=== PATIENT | female | born 1935 | race Caucasian/White ===

== ENCOUNTER 2017-01-26 07:04 | Inpatient (IN) | payer MEDICARE, OTHER ==
[2017-01-26] MEDS ORDERED: NS 0.9% 1000 ML* 1,000 ML IV SCH (07:45)
--- NOTE | 2017-01-26 08:39 | RAD ---
Indication: Altered mental status. LEFT facial droop and LEFT arm numbness. Altered speech. Comparison: May 08, 2015 Technique: Noncontrast CT vertex of skull through foramen magnum. Report: Unremarkable ventricles, and basal cisterns. There is decreased density in the RIGHT basal ganglia from level of the caudate superiorly through the putamen and external capsule inferiorly. Negative for associated mass effect. 2.3 x 2.1 cm region of fallon matter white matter obscuration at the RIGHT frontal lobe at the level of the zamora radiata with localized associated sulcal effacement without additional mass effect. Negative for intra or extra-axial hemorrhage. No suspicious lesion of the calvarium or skull base. Clear visualized paranasal sinuses and mastoid air spaces. IMPRESSION: 2 areas of subacute nonhemorrhagic infarct involving the RIGHT frontal lobe and basal ganglia through the external capsule corresponding with the RIGHT middle cerebral artery distribution. Only mild mass affect without evidence for midline shift or downward herniation.
--- NOTE | 2017-01-26 08:41 | RAD ---
Indication: Altered mental status. Comparison: April 03, 2015 Technique: Sitting AP 0813 hours Report: Suboptimal inspiration based on comparison with the previous chest radiograph. Diffuse mild prominence of the interstitial markings and patchy rarefaction of the mid to upper lung zone interstitial markings. No focal pulmonary lesion, compelling alveolar consolidation, pleural effusion, pneumothorax. The heart, pulmonary vasculature, and mediastinal contours are unremarkable. IMPRESSION: Stigmata of probable obstructive lung disease. No acute pulmonary or cardiac process evident.
--- NOTE | 2017-01-26 08:44 | RAD ---
INDICATION: Altered mental status. Regions of subacute appearing ischemic infarct in the RIGHT middle cerebral artery distribution on head CT. COMPARISON: No relevant prior exams available on the [facility] for comparison. TECHNIQUE: Multidetector CT images foramen magnum to lung apices without contrast. Multiplanar reformation. REPORT: 2 mm degenerative C3-C4 and C6-C7 anterolisthesis. Negative for facet subluxation at any level. Negative for cervical vertebral body or posterior element fracture. Negative for paravertebral hematoma. Moderately severe C3-C4 and C5-C6 degenerative spondylosis. Congenitally generous pedicles mitigate against acquired central canal stenosis. Uncinate process spurring results in mild C3-C4, mild RIGHT C4-C5, and moderate C4-C5 LEFT foraminal stenosis. IMPRESSION: No CT evidence for traumatic thoracic spine injury.
[2017-01-26 09:12] LABS: Hematocrit 36 % (35-47); Hemoglobin 11.9 g/dl (12.0-16.0); Mean Corpuscular HGB Conc 34 g/dl (31-36); Mean Corpuscular Hemoglobin 31 pg (27-31); Mean Corpuscular Volume 93 fL (80-97); Mean Platelet Volume 7 um3 (7.4-10.4); Red Blood Count 3.84 10^6/ul (4.0-5.4); Red Cell Distribution Width 13 % (10.5-15); White Blood Count 8.3 10^3/ul (3.5-10.8)
[2017-01-26] MEDS ORDERED: Aspirin TAB* 325 MG PO ONE (09:18)
[2017-01-26 09:23] LABS: Ammonia 30 mol/L (16-53)
[2017-01-26 09:24] LABS: ALT 11 U/L (7-52); AST 19 U/L (13-39); Albumin 4.3 g/dL (3.2-5.2); Alkaline Phosphatase 54 U/L (34-104); Anion Gap 7 mmol/L (2-11); BUN/Creatinine Ratio 22.2 (8-20); Blood Urea Nitrogen 38 mg/dL (6-24); C Reactive Protein 4.66 mg/L (< 5.00); CO2 Carbon Dioxide 21 mmol/L (22-32); Calcium 9.1 mg/dL (8.6-10.3); Chloride 107 mmol/L (101-111); Creatine Kinase 82 U/L (10-223); EGFR African American 36.8 (>60); EGFR Non-African American 28.7 (>60); Globulin 2.5 g/dL (2-4); Glucose 92 mg/dL (70-100); Lipase 27 U/L (11.0-82.0); Potassium 4.2 mmol/L (3.5-5.0); Sodium 135 mmol/L (133-145); Total Protein 6.8 g/dL (6.4-8.9)
[2017-01-26 09:26] LABS: Acetaminophen < 15 mcg/mL; Alcohol < 10 mg/dL (<10); Salicylate < 2.50 mg/dL (<30)
[2017-01-26 09:29] LABS: B Type Natriuretic Peptide 652 pg/mL
[2017-01-26 09:36] LABS: TSH (Thyroid Stimulating Horm) 4.48 mcIU/mL (0.34-5.60)
[2017-01-26 10:09] LABS: Urine Bilirubin Negative (Negative); Urine Glucose Negative (Negative); Urine Nitrite Negative (Negative)
[2017-01-26 10:11] LABS: Urine Bacteria Absent (Absent)
[2017-01-26] MEDS ORDERED: cefTRIAXone(*) 1 GM in NS 0.9% 50 ML* 50 ML IVPB ONE (10:49)
[2017-01-26] MEDS ORDERED: Aspirin SUPP* 300 MG PR ONE (10:49)
[2017-01-26] MEDS ORDERED: Aspirin SUPP* 300 MG ONE (10:52)
[2017-01-26] MEDS: NS 0.9% 1000 ML* 1,000 ML IV SCH ×2 (11:00→14:58)
[2017-01-26 13:45] LABS: Cholesterol 112 mg/dL; HDL Cholesterol 41.9 mg/dL; LDL Cholesterol 49 mg/dL; Triglycerides 105 mg/dL
[2017-01-26] MEDS: Heparin VIAL(*) 5000 UNITS/ML VIAL (FIVE THOUSAND) SUBCUT SCH ×2 (14:07→20:57)
--- NOTE | 2017-01-26 14:42 | ED ---
Lela Hernandez Edward, scribed for Mann Story MD on 01/26/17 at 0714 . Altered Mental Status - HPI Summary HPI Summary: 81 y/o female BIBA c/o sudden onset AMS characterized as confusion and unresponsiveness starting at around 0600 this morning. Last seen normal 2100 last night, per daughter. This morning at 0600, the pt's daughter woke up to let the dogs out. When she returned to the kitchen she found the pt "talking jibberish" and "not making sense." Associated sx: L side facial droop and L sided weakness. PMHx HTN, HLD and COPD. Pt had a recent respiratory infection around 2 weeks ago and was treated with 2 abx. Pt has only spoken a few words in the ED. Most information provided by the pt's daughter. - History Of Current Complaint Stated Complaint: AMS Hx Obtained From: Family/[employer] Timing: Lasting Hours Character: Confusion - and unresponsiveness Aggravating Factor(s): Nothing Alleviating Factor(s): Nothing Associated Signs And Symptoms: Positive: Weakness - L side - Allergies/Home Medications Allergies/Adverse Reactions: Allergies Allergy/AdvReac Type Severity Reaction Status Date / Time Codeine Allergy KNOCKS HER Verified 04/03/15 10:26 OUT Sulfa Antibiotics Allergy Unknown Verified 04/03/15 10:26 Reaction Details ENVIRONMENTAL/SEASONAL Allergy WATERY Uncoded 04/03/15 10:26 EYES, RUNNY NOSE PMH/Surg Hx/FS Hx/Imm Hx Previously Healthy: No Cardiovascular History: Reports: Hx Coronary Artery Disease - CHOLESTEROL CONTROL WITH MED, Hx Hypertension - CONTROL WITH MEDS Respiratory History: Reports: Hx Chronic Obstructive Pulmonary Disease (COPD), Hx Seasonal Allergies, Other Respiratory Problems/Disorders - seasonal allergies GI History: Reports: Hx Gall Bladder Disease - removed History: Denies: Hx Acute Renal Failure, Hx Benign Prostatic Hyperplasia, Hx Chronic Renal Failure, Hx Dialysis, Hx Kidney Infection, Hx Kidney Stones, Other Problems/Disorders Musculoskeletal History: Reports: Hx Tendonitis - SHOULDER Sensory History: Reports: Hx Cataracts - removed, Hx Contacts or Glasses Denies: Hx Hearing Aid Opthamlomology History: Reports: Hx Cataracts - removed, Hx Contacts or Glasses Psychiatric History: Reports: Hx Anxiety, Hx Depression Denies: Hx Eating Disorder, Hx Schizophrenia, Hx of Violent Episodes Against Others, Hx Substance Abuse - Cancer History Hx Chemotherapy: No Hx Radiation Therapy: No - Surgical History Surgery Procedure, Year, and Place: 1963 AND 1964 C SECTION, [facility]. 2009 BOWEL RESECTION, [facility]. 2013 LAPAROSCOPIC CHOLECYSTECTOMY, [facility] Hx Anesthesia Reactions: No Infectious Disease History: Reports: Hx Shingles Denies: Hx Clostridium Difficile, Hx Hepatitis, Hx Human Immunodeficiency Virus (HIV), Hx of Known/Suspected MRSA, Hx Tuberculosis, Hx Known/Suspected VRE , Hx Known/Suspected VRSA, History Other Infectious Disease, Traveled Outside the [place] in Last 30 Days - Family History Known Family History: Positive: Other - Anxiety disorder - sister - Social History Alcohol Use: Rare Hx Substance Use: No Substance Use Type: Reports: None Hx Tobacco Use: Yes Smoking Status (MU): Former Smoker Amount Used/How Often: 1 PPD Review of Systems Constitutional: Negative Eyes: Negative ENT: Negative Cardiovascular: Negative Respiratory: Negative Gastrointestinal: Negative Genitourinary: Negative Musculoskeletal: Negative Skin: Negative Neurological: Other - L side facial droop Positive: Weakness - L side, Slurred Speech - "Jibberish" Psychological: Normal All Other Systems Reviewed And Are Negative: Yes Physical Exam Triage Information Reviewed: Yes Vital Signs On Initial Exam: Initial Vitals BP 142/66 01/26/17 07:16 Vital Signs Reviewed: Yes Appearance: Positive: Well-Appearing, No Pain Distress Skin: Positive: Warm, Skin Color Reflects Adequate Perfusion, Dry Head/Face: Positive: Normal Head/Face Inspection Eyes: Positive: EOMI, PADMINI ENT: Positive: Normal ENT inspection Neck: Positive: Supple, Nontender Respiratory/Lung Sounds: Positive: Clear to Auscultation, Breath Sounds Present Cardiovascular: Positive: RRR Abdomen Description: Positive: Nontender, Soft Bowel Sounds: Positive: Present Musculoskeletal: Positive: Normal, Strength/ROM Intact Neurological: Positive: Normal, Sensory/Motor Intact, Alert, Oriented to Person Place, Time Psychiatric: Positive: Affect/Mood Appropriate - Shreya Coma Scale Best Eye Response: 4 - Spontaneous Best Motor Response: 5 - Purposeful Movement Best Verbal Response: 4 - Confused Diagnostics - Vital Signs Vital Signs Temp Pulse Resp BP Pulse Ox 01/26/17 09:08 74 21 124/51 96 01/26/17 09:00 73 17 96 01/26/17 08:30 74 21 98 01/26/17 08:00 74 22 136/58 98 09/10/17 07:47 97.9 F 73 22 142/66 100 01/26/17 07:30 75 19 137/59 97 01/26/17 07:17 75 97 01/26/17 07:16 142/66 - Laboratory Lab Results: Lab Results 01/26/17 01/26/17 01/26/17 Range/Units 08:42 08:42 08:42 WBC 8.3 (3.5-10.8) 10^3/ul RBC 3.84 L (4.0-5.4) 10^6/ul Hgb 11.9 L (12.0-16.0) g/dl Hct 36 (35-47) % MCV 93 (80-97) fL MCH 31 (27-31) pg MCHC 34 (31-36) g/dl RDW 13 (10.5-15) % Plt Count 380 (150-450) 10^3/ul MPV 7 L (7.4-10.4) um3 Neut % (Auto) 79.1 (38-83) % Lymph % (Auto) 13.9 L (25-47) % Marshall % (Auto) 5.7 (1-9) % Eos % (Auto) 0.4 (0-6) % Baso % (Auto) 0.9 (0-2) % Absolute Neuts (auto) 6.6 (1.5-7.7) 10^3/ul Absolute Lymphs (auto) 1.2 (1.0-4.8) 10^3/ul Absolute Monos (auto) 0.5 (0-0.8) 10^3/ul Absolute Eos (auto) 0 (0-0.6) 10^3/ul Absolute Basos (auto) 0.1 (0-0.2) 10^3/ul Absolute Nucleated RBC 0 10^3/ul Nucleated RBC % 0 INR (Anticoag Therapy) 0.86 L (0.89-1.11) APTT 29.1 (26.0-36.3) seconds Sodium 135 (133-145) mmol/L Potassium 4.2 (3.5-5.0) mmol/L Chloride 107 (101-111) mmol/L Carbon Dioxide 21 L (22-32) mmol/L Anion Gap 7 (2-11) mmol/L BUN 38 H (6-24) mg/dL Creatinine 1.71 H (0.51-0.95) mg/dL Est GFR ( Amer) 36.8 (>60) Est GFR (Non-Af Amer) 28.7 (>60) BUN/Creatinine Ratio 22.2 H (8-20) Glucose 92 (70-100) mg/dL Lactic Acid (0.5-2.0) mmol/L Calcium 9.1 (8.6-10.3) mg/dL Magnesium 2.0 (1.9-2.7) mg/dL Total Bilirubin 0.30 (0.2-1.0) mg/dL AST 19 (13-39) U/L ALT 11 (7-52) U/L Alkaline Phosphatase 54 (34-104) U/L Ammonia (16-53) mol/L Total Creatine Kinase 82 (10-223) U/L CK-MB (CK-2) 3.2 (0.6-6.3) ng/mL Troponin I 0.00 (<0.04) ng/mL C-Reactive Protein 4.66 (< 5.00) mg/L B-Natriuretic Peptide ( - 100) pg/mL Total Protein 6.8 (6.4-8.9) g/dL Albumin 4.3 (3.2-5.2) g/dL Globulin 2.5 (2-4) g/dL Albumin/Globulin Ratio 1.7 (1-3) Triglycerides 105 mg/dL Cholesterol 112 mg/dL LDL Cholesterol 49 mg/dL HDL Cholesterol 41.9 mg/dL Lipase 27 (11.0-82.0) U/L TSH 4.48 (0.34-5.60) mcIU/mL Salicylates < 2.50 (<30) mg/dL Acetaminophen < 15 mcg/mL Serum Alcohol < 10 (<10) mg/dL 01/26/17 01/26/17 Range/Units 08:42 08:42 WBC (3.5-10.8) 10^3/ul RBC (4.0-5.4) 10^6/ul Hgb (12.0-16.0) g/dl Hct (35-47) % MCV (80-97) fL MCH (27-31) pg MCHC (31-36) g/dl RDW (10.5-15) % Plt Count (150-450) 10^3/ul MPV (7.4-10.4) um3 Neut % (Auto) (38-83) % Lymph % (Auto) (25-47) % Marshall % (Auto) (1-9) % Eos % (Auto) (0-6) % Baso % (Auto) (0-2) % Absolute Neuts (auto) (1.5-7.7) 10^3/ul Absolute Lymphs (auto) (1.0-4.8) 10^3/ul Absolute Monos (auto) (0-0.8) 10^3/ul Absolute Eos (auto) (0-0.6) 10^3/ul Absolute Basos (auto) (0-0.2) 10^3/ul Absolute Nucleated RBC 10^3/ul Nucleated RBC % INR (Anticoag Therapy) (0.89-1.11) APTT (26.0-36.3) seconds Sodium (133-145) mmol/L Potassium (3.5-5.0) mmol/L Chloride (101-111) mmol/L Carbon Dioxide (22-32) mmol/L Anion Gap (2-11) mmol/L BUN (6-24) mg/dL Creatinine (0.51-0.95) mg/dL Est GFR ( Amer) (>60) Est GFR (Non-Af Amer) (>60) BUN/Creatinine Ratio (8-20) Glucose (70-100) mg/dL Lactic Acid 1.3 (0.5-2.0) mmol/L Calcium (8.6-10.3) mg/dL Magnesium (1.9-2.7) mg/dL Total Bilirubin (0.2-1.0) mg/dL AST (13-39) U/L ALT (7-52) U/L Alkaline Phosphatase (34-104) U/L Ammonia 30 (16-53) mol/L Total Creatine Kinase (10-223) U/L CK-MB (CK-2) (0.6-6.3) ng/mL Troponin I (<0.04) ng/mL C-Reactive Protein (< 5.00) mg/L B-Natriuretic Peptide 652 H ( - 100) pg/mL Total Protein (6.4-8.9) g/dL Albumin (3.2-5.2) g/dL Globulin (2-4) g/dL Albumin/Globulin Ratio (1-3) Triglycerides mg/dL Cholesterol mg/dL LDL Cholesterol mg/dL HDL Cholesterol mg/dL Lipase (11.0-82.0) U/L TSH (0.34-5.60) mcIU/mL Salicylates (<30) mg/dL Acetaminophen mcg/mL Serum Alcohol (<10) mg/dL Result Diagrams: 01/26/17 08:42 01/26/17 08:42 Lab Statement: Any lab studies that have been ordered have been reviewed, and results considered in the medical decision making process. - Radiology CXR Xray Interpretation: No Acute Changes - Stigmata of probable obstructive lung disease. No acute pulmonary or cardiac process evident. ED PHYSICIAN AGREEABLE Radiology Interpretation Completed By: Radiologist - CT BRAIN CT CT Interpretation: Positive (See Comments) - 2 areas of subacute nonhemorrhagic infarct involving the RIGHT frontal lobe and basal ganglia through the external capsule corresponding with the RIGHT middle cerebral artery distribution. Only mild mass affect without evidence for midline shift or downward herniation. ED PHYSICIAN AGREEABLE CT Interpretation Completed By: Radiologist C-SPINE CT CT Interpretation: No Acute Changes - No CT evidence for traumatic thoracic spine injury. 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/Release Non-Paretic Hand: Both Correctly Best Gaze (Only Horizontal Eye Movement): Normal Visual Field Testing: No Visual Loss Facial Paresis-Pt to Smile & Close Eyes or Grimace Symmetry: Normal/Symmetrical Motor Function - Right Arm: Drifts LT 10 seconds Motor Function - Left Arm: Drifts LT 10 seconds Motor Function - Right Leg: No Effort Against [place] Motor Function - Left Leg: No Effort Against [place] Limb Ataxia-Must be out of Proportion to Weakness Present: Absent Sensory (Use Pinprick to Test Arms/Legs/Trunk/Face): Normal Best Language (Describe Picture, Name Items): Severe Aphasia Dysarthria (Read Several Words): Unintelligible or Mute Extinction and Inattention: Profound Julio César-Inattention Total Score: 17 Altered Mental Statu Course/Dx - Course Course Of Treatment: DISCUSSED WITH NEUROLOGY. ADMIT HOSPITALIST. ASA GIVEN CO. IV ROCEHPHIN GIVEN. CRITICAL CARE TIME LESS THAN 30 MINUTES. - Diagnoses Discharge Diagnoses: CVA (cerebral vascular accident), UTI (urinary tract infection) - Provider Notifications Discussed Care Of Patient With: Emilia Emerson Time Discussed With Above Provider: 09:00 Instructed by Provider To: Admit As Inpatient Discharge - Discharge Plan Condition: Stable Disposition: ADMITTED TO [facility] The documentation as recorded by the Lela bhardwaj Edward accurately reflects the service I personally performed and the decisions made by me, Mann Story MD.
--- NOTE | 2017-01-26 15:20 | CONS ---
NEUROLOGY CONSULTATION: DATE OF CONSULT: 01/26/17 REQUESTING PHYSICIAN: Dr. Mann Story. REASON FOR CONSULT: Possible stroke. HISTORY OF PRESENT ILLNESS: Jess Osorio is an 81-year-old right-handed woman with a history of hypertension, anxiety, and COPD, who presented to the emergency department with her daughter this morning. The history is obtained from discussion with Dr. Story as well as discussion with the patient's daughter as the patient is unable to contribute to the history given her symptoms. It should be noted, that the daughter does not know the patient's home medications nor extensive past medical history. The patient was in her usual state of health last evening. The patient and her daughter had dinner together and then went back to the daughter's house where the patient spent the night. Mrs. Osorio typically lives alone and is independent in all of her ADLs including driving. They went to bed around 9 p.m. This morning, the patient was found by her daughter in the kitchen around 6 a.m. standing with gibberish speech. Her daughter states she appeared to be somewhat weak to her, but it is unclear exactly how and the daughter helped her into the living room, but the patient was able to ambulate. She again did have gibberish speech. The patient's daughter called a family member and then called 911 and the patient was brought here for further evaluation. They deny any past history of stroke in the patient. She recently was complaining of feeling some cold-like symptoms within the last few weeks and saw her PCP, Dr. Box. She was apparently prescribed Z-Reggie, but then developed diarrhea and went back for another evaluation and was prescribed ciprofloxacin. It sounds like she most recently saw Dr. Bxo Friday of last week and as far as they know everything was fine. It is unknown if she takes an aspirin on a daily basis or not. The patient is not a candidate for TPA given that her last known normal was 9 p.m. last night. I am asked to evaluate the patient for question of stroke. PAST MEDICAL HISTORY: 1. Hypertension. 2. Anxiety. 3. COPD. 4. Hyperlipidemia. HOME MEDICATIONS: The list has not been verified, but her last list noted in [employer]This is as follows: 1. Trazodone 100 mg at bedtime. 2. Clonazepam. 3. Spiriva. 4. Zoloft. 5. Ranitidine. 6. Lovastatin. 7. Losartan. 8. Loratadine. 9. Gabapentin. 10. Colace. 11. Diltiazem. 12. Vitamin D. 13. Vitamin C. 14. Ventolin as needed. ALLERGIES: 1. CODEINE. 2. SULFA ANTIBIOTICS. 3. ENVIRONMENTAL ALLERGIES. FAMILY HISTORY: There is a history of stroke in the patient's father as well as TIA in the patient's sister. They deny any family history of diabetes or hypertension. SOCIAL HISTORY: The patient is a former smoker, quit approximately 10 years ago. She drinks alcohol rarely. No other illicit drug use. As mentioned in the HPI, she lives alone and drives at her baseline. REVIEW OF SYSTEMS: As per the HPI, otherwise negative. PHYSICAL EXAM: Vital Signs: Temperature 98.7, blood pressure 129/80, heart rate 64, oxygen saturation is 95% on 2 L nasal cannula. Her maximum blood pressure since she has been here was 142/66 on arrival at 7:16 this morning. General Examination: She is well appearing woman in no acute distress. Heart: Regular rate and rhythm with no murmurs, rubs, or gallops. Lungs: She was not able to fully cooperate with auscultation of the lungs secondary to not being able to follow commands, but there was no obvious abnormal lung sounds heard. No obvious carotid bruits. Extremities showed no significant pitting edema. No rashes. On neurological examination, she is unable to reliably follow commands. She did close her eyes on one occasion on a verbal command, but was not able to make a fist. Much of the physical exam was accomplished through mimicking. She had fluent gibberish speech with occasional intelligible words. She was not able to describe the [employer] theft picture nor name objects or point to objects on the stroke cards. When asked to read off the stroke card, she said 1 or 2 words that made sense and were present on the card, but otherwise her speech was gibberish. She was not able to repeat a sentence. On cranial nerve examination, pupils are equal, round and reactive from 4 to 2 mm bilaterally. Versions are full without any nystagmus. She did not blink to threat in either visual field reliably. Her face is notable for slight left lower facial weakness. Her tongue is midline and she cannot cooperate with elevating the palate. On motor examination, she has slightly increased tone in the left upper extremity. There is possibly some slight weakness with some drift of the left leg prior to 5 seconds, but otherwise no significant extremity weakness. She seems to have some mild diminished sensation to noxious stimulation in the left upper and lower extremities. Coordination testing was not able to be accomplished. Reflexes were 2+ in the right upper extremity, 3+ left upper extremity, 2+ at the knees and an upgoing toe on the left. DIAGNOSTIC STUDIES/LAB DATA: CBC was notable only for slightly low hemoglobin of 11.9 and RBCs 3.84. CMP was notable for an elevated BUN of 38 and creatinine of 1.71. The last known creatinine we have on file is from 2014 and was 1.07. Her CO2 was low at 21. BNP was elevated at 652. Liver functions were normal. Troponin was negative. CRP was normal and TSH was 4.48. Urinalysis was notable for squamous epithelial cells present as well as transitional epithelial cells present as well as 2+ leukocyte esterase and 2+ wbc's, but no nitrites. Coagulation studies are unremarkable. Noncontrast brain CT was obtained and personally reviewed and showed 2 areas of subacute nonhemorrhagic infarction involving the right frontal lobe and basal ganglia to the external capsule. There was no obvious subacute infarctions noted in the left hemisphere. Chest x-ray was notable for the stigmata of COPD. She also underwent a C-spine CT, which showed no evidence for traumatic injury, but moderately severe degenerative spondylosis was noted at C3-4 and C5-6. IMPRESSION: Jess Osorio is an 81-year-old right-handed woman with a history of hypertension and probable hyperlipidemia based on home medication list who presented today with some left facial weakness as well as aphasia. Her CT scan shows some probable areas of subacute infarction in the right hemisphere. I am concerned that she has had embolic infarcts bilaterally, which would give rise to her aphasia as well as her apparent left facial weakness and possibly some left lower extremity weakness as well. She has been admitted to the hospital and is undergoing stroke workup to include MRI of the brain as well as MRA of the head. This will happen tomorrow. Given her current renal function, we are not able to obtain a CT angiogram, but carotid ultrasound has been ordered. She will be monitored on telemetry to look for any signs of atrial fibrillation and will undergo echocardiogram with bubble study tomorrow. In addition, she should have laboratory workup including hemoglobin A1c and lipid panel tomorrow. She was given aspirin in the emergency department and I started her on aspirin by mouth to be started tomorrow. She has undergone her swallow evaluation by Speech Therapy today who said she was able to have mechanical soft diet at this point. Thank you for this consultation. I will follow the patient along with you. [id number]/[facility] #: [id number] NAZANIN
[2017-01-26 15:44] LABS: Benzodiazepine Urine Screen None Detected (None Detect)
--- NOTE | 2017-01-26 20:19 | HP ---
CC: Dr. Box * HISTORY AND PHYSICAL: DATE OF ADMISSION: 01/26/17 PRIMARY CARE PROVIDER: Dr. Box. CHIEF COMPLAINT: Garbled speech. HISTORY OF PRESENT ILLNESS: Ms. Osorio is an 81-year-old female, who a day prior to admission had been in her normal state of health. The patient's daughter provides all the history, as the patient is aphasic. Per the daughter , the patient and she went to a dinner event. Everything was normal at that point. The patient was going to stay with her daughter overnight. At approximately 6 a.m. on the morning of admission, the patient's daughter got up to let her dog out. She then went and put something in the garage and when she came back in to the house, she found her mother standing in the kitchen. At that point, she was talking gibberish. The patient's daughter did not recognize any other stroke-like symptoms; however, she was concerned for stroke ; therefore, contacted her brother and the EMS. PAST MEDICAL HISTORY: 1. COPD. 2. Hypertension (the patient's daughter is unaware of all the patient's medical conditions). PAST SURGICAL HISTORY: Unknown. MEDICATIONS: According to pharmacy records, but I do not believe this is a complete and accurate list. 1. Remeron 15 mg p.o. q.h.s. 2. Losartan 50 mg p.o. daily. 3. Spiriva 1 puff inhaled daily. 4. Klonopin 0.5 mg p.o. t.i.d. p.r.n. anxiety. 5. Atenolol 12.5 mg p.o. daily. 6. Lovastatin 10 mg p.o. q.h.s. 7. Cipro 500 mg p.o. b.i.d. started on 01/21/17 for 7-day course. 8. Diltiazem XR 180 mg p.o. b.i.d. ALLERGIES: No known drug allergies. FAMILY HISTORY: Again, the patient's daughter is not completely clear, but she states that the patient's mom at the age of 95 and the patient's father had a CVA. SOCIAL HISTORY: The patient is a former smoker. She quit 8 to 10 years ago. She drinks on occasion. The patient's daughter is unaware who her healthcare proxy is or what the patient's code status is. REVIEW OF SYSTEMS: Unobtainable from the patient due to aphasia. PHYSICAL EXAMINATION GENERAL: The patient is a well-developed, elderly female, sitting up in the stretcher, awake, and in no acute distress. VITAL SIGNS: Blood pressure 129/80, pulse 64, respirations 16, temp 98.7, O2 sat 96% on 2 L. HEENT: Pupils are equal, they are round. Extraocular muscles are intact. Oropharynx is clear. Oral mucosa is moist. The patient is edentulous. There is no submandibular, cervical, or supraclavicular adenopathy. Thyroid is not enlarged. No thyroid nodules are noted. PULMONARY: Lungs are clear to auscultation bilaterally. CARDIAC: Normal S1 and S2. Regular rate and rhythm. I do not appreciate any murmurs. There is no lower extremity edema. ABDOMEN: Bowel sounds are present. Abdomen is soft, nontender, nondistended. MUSCULOSKELETAL: There is no cyanosis or clubbing of the digits. There is full active range of motion of all 4 extremities. NEURO: The patient has a left-sided facial droop, most notably at the left corner of the mouth. The patient is aphasic, occasionally speaking gibberish. She is able to follow commands but does this slightly with difficulty. Strength appears to be symmetric bilaterally. The patient does not have any evidence of pronator drift and she is able to lift both legs up off the bed. PSYCH: The patient is awake. It is unclear if she is oriented to place or situation. SKIN: Warm and dry. There are no rashes. DIAGNOSTIC STUDIES/LAB DATA: WBC 8.3, hemoglobin 11.9, hematocrit 36, and platelets 380. INR 0.86. Sodium 135, potassium 4.2, chloride 107, CO2 21, BUN 38, creatinine 1.71, glucose 92, lactic acid 1.3, calcium 9.1, magnesium 2.0. Bilirubin 0.3, AST 19, ALT 11, alk phos 54. Ammonia 30. CPK 82, CK-MB 3.2. Troponin 0. CRP 4.66. BNP 652. Albumin 4.3, lipase 27. TSH 4.48. Urinalysis reveals clear urine with specific gravity of 1.015, 2+ leukocyte esterase, 2+ wbc's, absent bacteria, salicylate less than 2.5, acetaminophen less than 15, alcohol less than 10. EKG reveals normal sinus rhythm without any acute ST-T wave abnormalities. CT brain revealed 2 areas of subacute nonhemorrhagic infarct involving the right frontal lobe and basal ganglia through the external capsule corresponding with right mid cerebral artery distribution. Only mild mass effect without evidence for midline shift or downward herniation is noted. Cervical spine CT: No CT evidence for traumatic thoracic spine injury. Chest x-ray: Stigmata of probable obstructive lung disease. No acute pulmonary or cardiac process is evident. ASSESSMENT AND PLAN: Ms. Osorio is an 81-year-old female, who is in her usual state of health through the night prior to admission and found on the morning of admission by her daughter aphasic. 1. 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 The patient was found to have 2 lesions in the right middle cerebral artery territory. The patient received aspirin in the emergency room. She will need to undergo echocardiogram and carotid Dopplers. Additionally, an MRI of the brain will be obtained. Neurology consultation has been requested to Dr. Emerson. PT/OT and Speech Therapy will be ordered. As the patient was living at home alone, I suspect that she will not be able to return home alone at this point and she will likely need subacute rehab. A lipid profile will be added to the labs drawn in the emergency room. 2. Chronic obstructive pulmonary disease. The patient will be maintained on her usual dose of Spiriva. There are no signs of exacerbation at this point. 3. Hypertension. The patient will be allowed to have higher than normal blood pressure in the setting of her subacute cerebrovascular accident. I have ordered her atenolol and diltiazem, however, have placed hold parameters on these. Additionally, currently, the patient is unable to swallow safely and therefore these will be held until her swallow function improves. 4. Anxiety. The patient will have p.r.n. Klonopin though again if she is unable to swallow, we will need to consider changing this to an IV Ativan. 5. DVT prophylaxis. According to the Adult Thrombosis Prophylaxis Risk Factor Assessment Guide, the patient has a total risk factor score of 8 making her the highest risk. She will be placed on heparin 5000 units subcutaneous q.8 hours and for the time being, the patient's code status will be full as she and the patient's daughter are unable to provide her wishes. TIME SPENT: Sixty-five minutes was spent admitting this patient. [id number]/[facility] #: [id number] NAZANIN
[2017-01-26] MEDS: CMC:Lovastatin (NF) 10 MG TAB PO SCH (20:56)
[2017-01-26] MEDS ORDERED: DILTIAZEM HCL 180 MG PO SCH (21:00)
[2017-01-27 05:07] LABS: BUN/Creatinine Ratio 18.5 (8-20); Calcium 8.4 mg/dL (8.6-10.3); EGFR African American 53.4 (>60); EGFR Non-African American 41.5 (>60); Potassium 3.7 mmol/L (3.5-5.0)
[2017-01-27] MEDS: Heparin VIAL(*) 5000 UNITS/ML VIAL (FIVE THOUSAND) SUBCUT SCH ×3 (05:49→23:47)
[2017-01-27] MEDS: NS 0.9% 1000 ML* 1,000 ML IV SCH (06:05)
[2017-01-27] MEDS ORDERED: Morphine INJ* 2 MG/ML 1 ML CARPUJECT IV PRN (08:06)
[2017-01-27] MEDS: Pantoprazole IV* 40 MG IV SCH (08:13)
--- NOTE | 2017-01-27 08:40 | PN ---
Subjective Date of Service: 01/27/17 Interval History: Pt is able to speak "much better today", still has occasional anomia and not able to follow all of the commands correctly. C/o abd pain and periumbilical burning that had been going on all night Objective Active Medications: Aspirin (Ecotrin Ec Tab*) 325 mg PO DAILY [facility] Aspirin (Aspirin Supp*) 300 mg ID DAILY [facility] Last Admin: 01/27/17 08:13 Dose: 300 mg Clonazepam (Klonopin Tab(*)) 0.5 mg PO TID PRN PRN Reason: ANXIETY Device (Tiotropium Inhaler Device*) 1 each INH 0900 ONE Stop: 01/27/17 09:01 Heparin Sodium (Porcine) (Heparin Vial(*)) 5,000 units SUBCUT Q8HR [facility] Last Admin: 01/27/17 05:49 Dose: 5,000 units Lactated Ringer's (Lactated Ringers 1000 Ml Bag*) 1,000 mls @ 75 mls/hr IV PER RATE [facility] Losartan Potassium (Cozaar Tab*) 50 mg PO QAM [facility] Lovastatin (Mevacor (Nf)) 10 mg PO BEDTIME [facility] Last Admin: 01/26/17 20:56 Dose: Not Given Morphine Sulfate (Morphine Inj (Syringe)*) 1 mg IV Q4H PRN PRN Reason: PAIN Last Admin: 01/27/17 08:28 Dose: 1 mg Pantoprazole Sodium (Protonix Iv*) 40 mg IV DAILY [facility] Last Admin: 01/27/17 08:13 Dose: 40 mg Tiotropium Deloit (Spiriva Cap.Inh*) 1 cap INH QAM [facility] Vital Signs 01/26/17 01/26/17 01/26/17 09:30 09:40 10:00 Temperature 97.6 F Pulse Rate 78 75 72 Respiratory 17 26 18 Rate Blood Pressure 134/55 116/36 125/52 (mmHg) O2 Sat by Pulse 96 97 97 Oximetry 01/26/17 01/26/17 01/26/17 10:30 11:08 15:25 Temperature 98.7 F 97.9 F Pulse Rate 76 64 80 Respiratory 18 16 20 Rate Blood Pressure 121/53 129/80 130/49 (mmHg) O2 Sat by Pulse 96 96 Oximetry 01/26/17 01/26/17 01/26/17 19:47 20:00 23:17 Temperature 98.4 F 97.1 F Pulse Rate 79 95 Respiratory 16 16 20 Rate Blood Pressure 127/51 144/62 (mmHg) O2 Sat by Pulse 98 96 Oximetry 01/27/17 01/27/17 01/27/17 03:14 07:18 08:22 Temperature 98.2 F 98.7 F Pulse Rate 87 86 Respiratory 20 24 16 Rate Blood Pressure 119/58 114/50 (mmHg) O2 Sat by Pulse 97 98 Oximetry 01/27/17 08:28 Temperature Pulse Rate Respiratory 16 Rate Blood Pressure (mmHg) O2 Sat by Pulse Oximetry Oxygen Devices in Use Now: Nasal Cannula - at 2 L Appearance: 81 yo F in nAD, AAOx2, not able to give the date, follows some of the commands Eyes: No Scleral Icterus, PERRLA Ears/Nose/Mouth/Throat: NL Teeth, Lips, Gums, Mucous Membranes Moist Neck: NL Appearance and Movements; NL JVP, Trachea Midline Respiratory: Symmetrical Chest Expansion and Respiratory Effort, Clear to Auscultation Cardiovascular: NL Sounds; No Murmurs; No JVD, RRR Abdominal: No Hepatosplenomegaly, - - diffuse abd tenderness with voluntary guarding, no rebound, BS+ Lymphatic: No Cervical Adenopathy Extremities: No Edema, No Clubbing, Cyanosis Skin: No Rash or Ulcers, No Nodules or Sclerosis Neurological: - - L UE at 4+/5, left facial droop, mixed aphasia Result Diagrams: 01/26/17 08:42 01/27/17 04:36 Additional Lab and Data: Lab Results 01/26/17 01/26/17 01/26/17 Range/Units 08:42 08:42 08:42 WBC 8.3 (3.5-10.8) 10^3/ul RBC 3.84 L (4.0-5.4) 10^6/ul Hgb 11.9 L (12.0-16.0) g/dl Hct 36 (35-47) % MCV 93 (80-97) fL MCH 31 (27-31) pg MCHC 34 (31-36) g/dl RDW 13 (10.5-15) % Plt Count 380 (150-450) 10^3/ul MPV 7 L (7.4-10.4) um3 Neut % (Auto) 79.1 (38-83) % Lymph % (Auto) 13.9 L (25-47) % Gilchrist % (Auto) 5.7 (1-9) % Eos % (Auto) 0.4 (0-6) % Baso % (Auto) 0.9 (0-2) % Absolute Neuts (auto) 6.6 (1.5-7.7) 10^3/ul Absolute Lymphs (auto) 1.2 (1.0-4.8) 10^3/ul Absolute Monos (auto) 0.5 (0-0.8) 10^3/ul Absolute Eos (auto) 0 (0-0.6) 10^3/ul Absolute Basos (auto) 0.1 (0-0.2) 10^3/ul Absolute Nucleated RBC 0 10^3/ul Nucleated RBC % 0 INR (Anticoag Therapy) 0.86 L (0.89-1.11) APTT 29.1 (26.0-36.3) seconds Sodium 135 (133-145) mmol/L Potassium 4.2 (3.5-5.0) mmol/L Chloride 107 (101-111) mmol/L Carbon Dioxide 21 L (22-32) mmol/L Anion Gap 7 (2-11) mmol/L BUN 38 H (6-24) mg/dL Creatinine 1.71 H (0.51-0.95) mg/dL Est GFR ( Amer) 36.8 (>60) Est GFR (Non-Af Amer) 28.7 (>60) BUN/Creatinine Ratio 22.2 H (8-20) Glucose 92 (70-100) mg/dL Lactic Acid (0.5-2.0) mmol/L Calcium 9.1 (8.6-10.3) mg/dL Magnesium 2.0 (1.9-2.7) mg/dL Total Bilirubin 0.30 (0.2-1.0) mg/dL AST 19 (13-39) U/L ALT 11 (7-52) U/L Alkaline Phosphatase 54 (34-104) U/L Ammonia (16-53) mol/L Total Creatine Kinase 82 (10-223) U/L CK-MB (CK-2) 3.2 (0.6-6.3) ng/mL Troponin I 0.00 (<0.04) ng/mL C-Reactive Protein 4.66 (< 5.00) mg/L B-Natriuretic Peptide ( - 100) pg/mL Total Protein 6.8 (6.4-8.9) g/dL Albumin 4.3 (3.2-5.2) g/dL Globulin 2.5 (2-4) g/dL Albumin/Globulin Ratio 1.7 (1-3) Triglycerides 105 mg/dL Cholesterol 112 mg/dL LDL Cholesterol 49 mg/dL HDL Cholesterol 41.9 mg/dL Lipase 27 (11.0-82.0) U/L TSH 4.48 (0.34-5.60) mcIU/mL Salicylates < 2.50 (<30) mg/dL Acetaminophen < 15 mcg/mL Serum Alcohol < 10 (<10) mg/dL 01/26/17 01/26/17 Range/Units 08:42 08:42 WBC (3.5-10.8) 10^3/ul RBC (4.0-5.4) 10^6/ul Hgb (12.0-16.0) g/dl Hct (35-47) % MCV (80-97) fL MCH (27-31) pg MCHC (31-36) g/dl RDW (10.5-15) % Plt Count (150-450) 10^3/ul MPV (7.4-10.4) um3 Neut % (Auto) (38-83) % Lymph % (Auto) (25-47) % Gilchrist % (Auto) (1-9) % Eos % (Auto) (0-6) % Baso % (Auto) (0-2) % Absolute Neuts (auto) (1.5-7.7) 10^3/ul Absolute Lymphs (auto) (1.0-4.8) 10^3/ul Absolute Monos (auto) (0-0.8) 10^3/ul Absolute Eos (auto) (0-0.6) 10^3/ul Absolute Basos (auto) (0-0.2) 10^3/ul Absolute Nucleated RBC 10^3/ul Nucleated RBC % INR (Anticoag Therapy) (0.89-1.11) APTT (26.0-36.3) seconds Sodium (133-145) mmol/L Potassium (3.5-5.0) mmol/L Chloride (101-111) mmol/L Carbon Dioxide (22-32) mmol/L Anion Gap (2-11) mmol/L BUN (6-24) mg/dL Creatinine (0.51-0.95) mg/dL Est GFR ( Amer) (>60) Est GFR (Non-Af Amer) (>60) BUN/Creatinine Ratio (8-20) Glucose (70-100) mg/dL Lactic Acid 1.3 (0.5-2.0) mmol/L Calcium (8.6-10.3) mg/dL Magnesium (1.9-2.7) mg/dL Total Bilirubin (0.2-1.0) mg/dL AST (13-39) U/L ALT (7-52) U/L Alkaline Phosphatase (34-104) U/L Ammonia 30 (16-53) mol/L Total Creatine Kinase (10-223) U/L CK-MB (CK-2) (0.6-6.3) ng/mL Troponin I (<0.04) ng/mL C-Reactive Protein (< 5.00) mg/L B-Natriuretic Peptide 652 H ( - 100) pg/mL Total Protein (6.4-8.9) g/dL Albumin (3.2-5.2) g/dL Globulin (2-4) g/dL Albumin/Globulin Ratio (1-3) Triglycerides mg/dL Cholesterol mg/dL LDL Cholesterol mg/dL HDL Cholesterol mg/dL Lipase (11.0-82.0) U/L TSH (0.34-5.60) mcIU/mL Salicylates (<30) mg/dL Acetaminophen mcg/mL Serum Alcohol (<10) mg/dL Assess/Plan/Problems-Billing Assessment: 81 yo f with h/o HTN, dyslipidemia who presented with aphasia and left sided weakness. - Patient Problems (1) CVA (cerebral vascular accident) Comment: acute , ischemic cont ASA Carotid dopplers, MRI brain and Echo with bubble pending Appreciate neurology's assistance Swallow eval pending (2) Abdominal pain Comment: diffuse will check CT abd cont IV Protonix for now (3) DELMER (acute kidney injury) Comment: appears prerenal, resolving cont gentle IVF (4) Abnormal urinalysis Comment: cont Ceftriaxone for now for possible UTI (5) Dyslipidemia Comment: LDL 51, cont current statin (6) HTN (hypertension) Comment: all BP meds stopped, controlled (7) COPD (chronic obstructive pulmonary disease) Comment: not in exacerbation, cont spiriva (8) DVT prophylaxis Comment: heparin sc Status and Disposition: inpatient
[2017-01-27] MEDS ORDERED: Spiriva Inhaler DEVICE* 1 EACH DEVICE INH ONE (09:00)
[2017-01-27] MEDS ORDERED: Aspirin SUPP* 300 MG PR SCH (09:00)
[2017-01-27] MEDS ORDERED: Aspirin EC TAB* 325 MG PO SCH (09:00)
[2017-01-27] MEDS ORDERED: Losartan TAB* 25 MG PO SCH (09:00)
[2017-01-27] MEDS ORDERED: Morphine INJ* 4 MG/ML 1 ML CARPUJECT IV PRN (10:11)
--- NOTE | 2017-01-27 10:40 | RAD ---
INDICATION: CVA. Assess for carotid stenosis. COMPARISON: No relevant prior exams available on the [facility] PACS for comparison. TECHNIQUE: Bilateral carotid duplex scan. Stenosis estimations reflect velocity criteria that have been correlated to angiographic stenosis calculations based on distal internal carotid diameter. REPORT: RIGHT ICA: 205 cm/s peak systolic 31 cm/s end diastolic CCA: 68 cm/s peak systolic ICA/CCA peak systolic ratio: 3.01 Moderate predominant calcific plaque at the carotid bulb and proximal internal carotid artery. Preserved low resistance internal carotid artery waveforms. Antegrade flow documented at the RIGHT vertebral artery. LEFT ICA: 76 cm/s peak systolic 21 cm/s end diastolic CCA: 74 cm/s peak systolic ICA/CCA peak systolic ratio: 1.03 Minimal calcific plaque at the LEFT carotid bulb. Preserved low resistance internal carotid artery waveforms. Antegrade flow documented at the LEFT vertebral artery. IMPRESSION: 1. 50-69% RIGHT internal carotid artery stenosis. 2. Less than 50% LEFT internal carotid artery stenosis. CPT II Codes: 3100F
[2017-01-27] MEDS: Tiotropium CAP.INH* CAP.INH/18 MCG (USE ORDER SET !) INH SCH (11:13)
--- NOTE | 2017-01-27 12:53 | RAD ---
INDICATION: Diffuse abdominal pain. Question bowel ischemia. Previous bowel resection and cholecystectomy. COMPARISON: September 19, [address] of abdomen and pelvis. TECHNIQUE: Multidetector CT images were obtained from the lung bases to the ischial tuberosities. Oral contrast administered. Assessment of the visceral limited without IV contrast. REPORT: Significant patient motion artifact degrades image quality. Grossly clear lung bases with emphysematous change. Post cholecystectomy. Negative for biliary dilatation. No CT abnormality of the unenhanced liver. Unremarkable pancreas and spleen. No gross CT abnormality of the upper GI or small bowel. Moderate stool in the colon with moderate rectal distention with formed stool. No compelling small or large bowel mural thickening or perienteric inflammatory change. Negative for ascites, free air, hernias. Normal adrenal glands. Negative for obstructive uropathy. No suspicious finding along the course of the nondilated ureters. Distended urinary bladder without suspicious finding. Unremarkable anteverted uterus and adnexal regions. Negative for lymphadenopathy. Atherosclerotic plaque of normal diameter abdominal aorta and iliac arteries. Physiologic distention of the IVC. Negative for superficial or deep soft tissue plane hematoma. Lumbar sacral spine degenerative spondylosis and facet joint osteoarthritis. Negative for suspicious focal osseous lesions. IMPRESSION: 1. Significant patient motion degrades image quality limiting assessment. 2. No compelling noncontrast CT findings to suggest presence of bowel ischemia. 3. No acute abdominal pelvic pathologic process evident.
[2017-01-27] MEDS ORDERED: Perflutren Lipid Microsphere* 3 ML VIAL ONE (12:54)
[2017-01-27] MEDS ORDERED: Ondansetron INJ* 2 MG/ML VIAL IV PRN (13:19)
[2017-01-27] MEDS: Morphine INJ* 4 MG/ML 1 ML CARPUJECT IV PRN ×3 (13:33→18:46)
--- NOTE | 2017-01-27 14:25 | ECHO ---
Patient: JOSEP VASQUEZ I [facility] Rec#: [id number] : 1935 Date: 01/27/2017 Age: 81y Height: 167.64 cm / 66.0 in Weight: 60.78 kg / 134.0 lbs Sex: F BSA: 1.69 Room#: 436 Admit Date#: 01/26/2017 Type: Inpatient Referring: Dorina Juárez DO Reading: Low Craven MD CC: Augustine Box MD CC: Emilia Emerson Transthoracic Echocardiogram Indication: CVA BP: 119/58 HR: 106 Rhythm: Tachycardia Findings History: HTN,anxiety, abd. discomfort,COPD,HLD. Technical Comments: The study is technically limited due to the patient's history of COPD. Completed at 1345. 4 ml Definity used to enhance endocardial borders. Left Ventricle: Global left ventricular wall motion and contractility are within normal limits. There is normal left ventricular systolic function. The estimated ejection fraction is 55-60%. The patient was unable to perform a Valsalva maneuver. Left Atrium: The left atrial chamber size is normal. Right Ventricle: The right ventricular cavity size is normal. The right ventricular global systolic function is normal. Right Atrium: The right atrial cavity size is normal. There is no patent foramen ovale visualized. A patent foramen ovale is not demonstrated with color Doppler and agitated contrast. Aortic Valve: The aortic valve structure is not well visualized. There is no evidence of aortic regurgitation. There is no evidence of aortic stenosis. Mitral Valve: The mitral valve leaflets appear normal. The mitral valve leaflets do not appear thickened. There is no evidence of mitral regurgitation. There is no evidence of mitral stenosis. Tricuspid Valve: The tricuspid valve leaflets are normal. There is mild to moderate tricuspid regurgitation. There is evidence of moderate pulmonary hypertension. There is no tricuspid stenosis. Pulmonic Valve: The pulmonic valve appears normal. There is no evidence of pulmonic regurgitation. There is no pulmonic stenosis. Pericardium: The pericardium appears normal. Aorta: The ascending aorta is not well visualized. There is no dilatation of the aortic arch. There is no dilation of the aortic root. Pulmonary Artery: The main pulmonary artery appears normal. Venous: The venous system is not well visualized. Subcostal view not attempted due to c/o abd. pain. Contrast: Definity was used to optimize study. 4 ml used. Intravenous contrast was used to enhance endocardial border definition. Conclusions Global left ventricular wall motion and contractility are within normal limits. The estimated ejection fraction is 55-60%. The right ventricular global systolic function is normal. A patent foramen ovale is not demonstrated with color Doppler and agitated contrast. There is no evidence of aortic stenosis. There is no evidence of mitral regurgitation. There is mild to moderate tricuspid regurgitation. There is evidence of moderate pulmonary hypertension. The pericardium appears normal. Measurements Name Value Normal Range RVIDd (AP) 2D 2.7 cm (0.9 - 2.6) RAd ISD 4CH 3.6 cm (3.4 - 4.9) RA (A4C)W 2.9 cm (2.9 - 4.6) IVSd (2D) 0.8 cm (0.6 - 1) LVPWd (2D) 0.8 cm (0.6 - 1) LVIDd (2D) 2.3 cm (3.6 - 5.4) LVIDs (2D) 1.6 cm - LV FS (2D) 30 % (25 - 45) Aortic Annulus 2 cm (1.4 - 2.6) Ao root diameter (2D) 3.5 cm (2.1 - 3.5) Aortic arch 1.8 cm (1.8 - 3.4) LAd ISD 4CH 4.5 cm (2.9 - 5.3) LA ISD 4CH W 3.3 cm (2.5 - 4.5) Name Value Normal Range LA ESV SP 4CH (A/L) 29 ml - LA ESV SP 2CH (A/L) 13 ml - LA ESV BP (A/L) 22 ml - LA ESV BP (A/L) index 12.83 ml/m2 - LA ESV SP 4CH (MOD) 27 ml - LA ESV SP 2CH (MOD) 12 ml - Name Value Normal Range MV E-wave Vmax 0.9 m/sec - MV deceleration time 154 msec - MV A-wave Vmax 1.3 m/sec - MV E:A ratio 0.71 ratio - LV septal e' Vmax 0.06 m/sec - LV lateral e' Vmax 0.08 m/sec - LV E:e' septal ratio 15 ratio - LV E:e' lateral ratio 11.25 ratio - Name Value Normal Range AV Vmax 1.5 m/sec - AV VTI 22.5 cm - AV peak gradient 8.46 mmHg - AV mean gradient 4.43 mmHg - LVOT Vmax 1.1 m/sec - LVOT VTI 18 cm - LVOT peak gradient 4.67 mmHg - LVOT mean gradient 1.95 mmHg - Name Value Normal Range TR Vmax 3.4 m/sec - TR peak gradient 45 mmHg - RAP 8 mmHg - RVSP 53 mmHg - Name Value Normal Range PV Vmax 0.6 m/sec - PV peak gradient 1.49 mmHg -
[2017-01-27] MEDS ORDERED: Furosemide IV* 10 MG/ML VIAL (40 MG) IV ONE (16:12)
[2017-01-27] MEDS ORDERED: Morphine INJ* 4 MG/ML 1 ML CARPUJECT ONE (16:22)
--- NOTE | 2017-01-27 16:41 | RAD ---
INDICATION: Altered mental status. Short of breath. COMPARISON: January 26, 2017 TECHNIQUE: An AP portable view obtained at 1625 hours is submitted. FINDINGS: Bones/Soft Tissues: There are no acute bony findings. Cardiomediastinal: The cardiomediastinal silhouette is normal. Lungs: There are no infiltrates. There is hyperinflation Pleura: There are no pleural effusions. Other: None IMPRESSION: HYPERINFLATION. NO ACTIVE DISEASE.
--- NOTE | 2017-01-27 17:53 | RAD ---
HISTORY: Left-sided arm weakness and facial droop COMPARISONS: Head CT dated January 26, 2017 TECHNIQUE: The following sequences were obtained of the head: Sagittal T1-weighted images, axial T2-weighted images, axial FLAIR images, axial susceptibility weighted images, axial T1-weighted images. Additionally, axial diffusion-weighted images were obtained with calculated apparent diffusion coefficients. FINDINGS: The study is limited by patient motion artifact. HEMORRHAGE/INFARCT: There is restricted diffusion consistent with subacute nonhemorrhagic infarct involving the left temporal and inferior parietal lobe extending to the occipital lobe as well as of the right caudate body. Elsewhere, there is no hemorrhage or acute infarct. MASSES/SHIFT: There is no mass or shift. EXTRA-AXIAL SPACES/MENINGES: There are no extra-axial fluid collections. SULCI AND VENTRICLES: There is mild diffuse and proportional enlargement of the sulci and ventricles. CEREBRUM: There is right frontal encephalomalacia consistent with remote infarct. There is elevated T2/FLAIR signal corresponding to there is a restricted diffusion within the right basal ganglia, and left [employer] territory. BRAINSTEM: There are no focal parenchymal abnormalities. CEREBELLUM: There are no focal parenchymal abnormalities. The cerebellar tonsils are normal in size and position. SELLA: The sella is normal. PINEAL: The pineal region is clear. CP ANGLE/TEMPORAL BONES: The labyrinthine structures are grossly normal. VESSELS: Normal flow-voids are noted within the visualized vertebral vasculature. DIFFUSION ABNORMALITIES: As noted above, there is restricted diffusion within the left [employer] territory and right caudate PARANASAL SINUSES/MASTOIDS: The paranasal sinuses are clear. ORBITS: The orbits are unremarkable. BONES AND SOFT TISSUE: No bone or soft tissue abnormalities are noted. OTHER: None IMPRESSION: 1. SUBACUTE NONHEMORRHAGIC INFARCTS INVOLVING THE RIGHT CAUDATE AND LEFT TEMPORAL LOBE, INFERIOR PARIETAL LOBE AND OCCIPITAL LOBE. THE DISTRIBUTION MULTIPLE VASCULAR TERRITORIES SUGGESTING EMBOLIC DISEASE. 2. CHRONIC RIGHT FRONTAL INFARCT. 3. MILD DIFFUSE INVOLUTIONAL CHANGE
--- NOTE | 2017-01-27 17:54 | RAD ---
HISTORY: Left-sided arm weakness, facial droop COMPARISONS: MRI of the brain dated January 27, 2017 TECHNIQUE: 3-D axial [id number] MR angiography was performed of the head to include the [place] of [place]. Multiple 3-D maximum intensity projection reconstructions are also submitted for review. FINDINGS: RIGHT VERTEBRAL ARTERY: The distal right vertebral artery is unremarkable, without stenosis. LEFT VERTEBRAL ARTERY: The right vertebral artery terminates in the right posterior inferior cerebellar artery. DOMINANCE: The left vertebral artery is dominant. DISTAL RIGHT CERVICAL INTERNAL CAROTID ARTERY: The distal right cervical internal carotid artery is unremarkable. DISTAL LEFT CERVICAL INTERNAL CAROTID ARTERY: The distal left cervical internal carotid artery is unremarkable. INTRACRANIAL CIRCULATION: There is no aneurysm, vascular malformation, occlusion, or stenosis of the visualized intracranial circulation. The anterior communicating artery complex is clear. A right posterior communicating artery is identified. The left posterior communicating artery is diminutive if present OTHER FINDINGS: None IMPRESSION: NO ANEURYSM, VASCULAR MALFORMATION, OCCLUSION, OR STENOSIS OF THE VISUALIZED INTRACRANIAL CIRCULATION.
[2017-01-27] MEDS ORDERED: Digoxin IV* 0.5 MG/2 ML AMP (0.25 MG/ML) ONE (19:50)
[2017-01-27] MEDS ORDERED: Diltiazem DRIP* 100 MG/100 ML ADDV.BAG IVPB ONE (19:50)
[2017-01-27] MEDS ORDERED: Digoxin IV* 0.5 MG/2 ML AMP (0.25 MG/ML) IV SLOW PU ONE (20:03)
[2017-01-27] MEDS ORDERED: NS 0.9% 1000 ML* 2,000 ML IV ONE (20:03)
[2017-01-27] MEDS ORDERED: Diltiazem IV* 5 MG/ML 5 ML VIAL (for loading dose/IV Push) (25 MG) IV SLOW PU ONE (20:03)
--- NOTE | 2017-01-27 20:20 | PN ---
<Jose Faustin - Last Filed: 01/27/17 20:11> Hospitalist Progress Note Called to see patient at 1945 for hr 160 and low bp. sp 85/50. To bedside. Patient in resp distress resp rate 30 accessory muscles being used. Lungs CTA. was given lasix today for concern pulm edema. Patient sats 85 percent. increased o2 to 15 lnc. Pt lethargic. Called attending Dr Javier to bedside. Zoll and pads applied. Considered cardioversion given unstable patient however cardioversion risky given recent cva and possible embolic source from heart. Cardiology called plan for 10mg ivp diltazem followed by drip and .5 of digoxin with hope that reducing hr will increase BP. meds given bp prior to admin now 70/40, meds given hr from 160 [id number] bp rising 82/50, resp improved, sats 95, Transfer to icu, will try to control rate and wean of dilt drip given recent cva would like elevated bp to allow for cerebral perfusion. giving 2 l bolus checking lytes. will follow closely, discussed case with Dr Javier and was present at bedside. <Lee Javier - Last Filed: 01/27/17 22:25> Hospitalist Progress Note Patient seen and evaluated in tandem. Agree with assessment & plan. Patient now in ICU with improved HR & BP. Repeat CT brain WO shows evolving multifocal ischemic infarct without hemorrhage.
[2017-01-27] MEDS ORDERED: Diltiazem DRIP* 100 MG/100 ML ADDV.BAG IVPB SCH (21:00)
[2017-01-27 21:38] LABS: Hematocrit 34 % (35-47); Mean Corpuscular HGB Conc 33 g/dl (31-36); Mean Corpuscular Hemoglobin 31 pg (27-31); Mean Corpuscular Volume 95 fL (80-97); Mean Platelet Volume 8 um3 (7.4-10.4); Red Blood Count 3.54 10^6/ul (4.0-5.4); Red Cell Distribution Width 13 % (10.5-15); White Blood Count 13.8 10^3/ul (3.5-10.8)
[2017-01-27 21:54] LABS: BUN/Creatinine Ratio 15.3 (8-20); Calcium 8.7 mg/dL (8.6-10.3); EGFR African American 47.6 (>60); Magnesium 1.7 mg/dL (1.9-2.7); Phosphorus 3.2 mg/dL (2.5-5.0); Potassium 4.2 mmol/L (3.5-5.0)
--- NOTE | 2017-01-27 22:05 | RAD ---
INDICATION: Increased confusion COMPARISON: MRI brain January 27, 2017 TECHNIQUE: Noncontrast axial source images were acquired from the skull base to the vertex. FINDINGS: Ventricles/sulci: There is cortical atrophy with compensatory dilatation of the CSF spaces. Brain parenchyma: There are evolving, nonhemorrhagic, infarcts in the right caudate nucleus and in the left temporoparietal and occipital lobes. This is documented on recent MR imaging. There is a small focus of right frontal encephalomalacia consistent with remote ischemic event. There is mild localized mass effect. Intracranial hemorrhage:None. Extra-axial spaces: There are no abnormal extra axial fluid collections or evidence of extra-axial mass. Calvarium: There is no calvarial fracture or other calvarial abnormality. Scalp: There is no evidence of scalp or extracalvarial soft tissue abnormality. Paranasal sinuses/mastoid: The paranasal sinuses and mastoid air cells are clear. Other: None. IMPRESSION: Involving nonhemorrhagic infarcts as described.
[2017-01-27] MEDS ORDERED: Magnesium Sulfate 2 GM IV* 2 GM/50 ML BAG IVPB ONE (22:30)
[2017-01-27] MEDS ORDERED: Lidocaine 2% JELLY* 6 ML JELLY TOPICAL ONE (22:50)
--- NOTE | 2017-01-27 23:52 | PN ---
Progress Note - Progress Note Date of Service: 01/27/17 Note: Nursing called reporting unsuccessful noble catheter placement after multiple attempts by at least 3 nurses. Bladder scan shows >1000cc. Patient's HR & BP remain much improved. I explained to Mrs Osorio the need to obtain the proper noble placement and she agreed to allow me another attempt. : clitoral rivas is markedly edematous with punctate excoriations. ~2.5cm posterior of the clitoral prominence, the urethral meatus is partially visualized. Vaginal orifice is mildly stenotic impeding the view. Under sterile conditions after betadyne swab, a 16 crudet catheter was successfully placed with good, translucent yellow urine return. Balloon was filled with 10cc saline flush. Mrs Osorio tolerated the procedure well. assessment: plan urinary retention : 16 crudet catheter placed : ICU nursing aware to monitor for and report development of post-obstructive diuresis
[2017-01-27] MEDS: CMC:Lovastatin (NF) 10 MG TAB PO SCH (23:56)
[2017-01-28] MEDS ORDERED: Digoxin IV* 0.5 MG/2 ML AMP (0.25 MG/ML) IV SLOW PU ONE ×2 (02:00→08:00)
--- NOTE | 2017-01-28 05:11 | PN ---
NEUROLOGY PROGRESS NOTE: DATE OF FOLLOWUP: 01/27/17. LOCATION: The patient is an inpatient. HISTORY: This afternoon, the patient experienced an episode of tachypnea and tachycardia and was thought to have gotten fluid overloaded. She received some Lasix and some morphine and is now on oxygen by nasal cannula. Her speech has improved a bit in the past 24 hours. She had some belly pain earlier. HOSPITAL MEDICATIONS: 1. Aspirin 81 mg daily. 2. Clonazepam 0.5 mg t.i.d. p.r.n. 3. Heparin 5000 units q.8 subcu. 4. Lovastatin 10 mg at bedtime. 5. Morphine 1 mg IV q.2 p.r.n. pain. 6. Zofran 4 mg IV q.4 p.r.n. nausea. 7. Protonix 40 mg daily. 8. Spiriva 1 cap q.a.m. PHYSICAL EXAMINATION: Vital Signs: Temperature 97.4, blood pressure 131/64, heart rate 122, oxygen saturation 94% on 5 L. General Exam: The patient was resting with eyes closed and woke easily to voice. She is mildly tachypneic with rales. She continues to have fluent speech, which has a bit more content today, but is still mostly nonsensical. She was able to begin to state her date of , but was not able to state her age or the month. She was able to name about 75% of the objects on the stroke cards. When asked to read, she was able to state about 25% to 50% of the words on the stroke cards. Her description of the [employer] Picture was mostly unintelligible. She still has great difficulty following commands, but is able to close her eyes on command. Otherwise, her gaze is midline. Pupils react from 3 to 2 mm. Her versions are full. There is a right field cut. There is left lower facial weakness. She has no obvious pronator drift today and her extremities are antigravity. Her sensation appears more symmetric to noxious stimulation today. LABORATORY DATA/DIAGNOSTIC DATA: Her creatinine has improved to 1.24 today from 1.71 and her GFR is 41. Hemoglobin A1c 5.4%. Fasting lipids show triglycerides of 80, total cholesterol 111, LDL of 51, and HDL of 44. Her carotid ultrasound showed 50% to 69% stenosis of the right carotid artery and less than 50% stenosis of the left carotid artery. Her echocardiogram showed an ejection fraction of 55% to 60% and no PFO or clot. Her MRI scan showed significant diffusion restriction in a large area of the left temporoparietal region as well as the right basal ganglia, the latter of which had been seen on a CT scan yesterday. The MRA of the head appears to show branch occlusion of the left MCA. Neither the brain MRI nor the MRA are formally read yet by Radiology. There has been no evidence for atrial fibrillation on telemetry. She underwent a CT of the abdomen which was negative for bowel ischemia. IMPRESSION: Jess Osorio is an 81-year-old woman with hypertension and hyperlipidemia, who presented subacutely with embolic-appearing infarctions in both the right and left MCA territories. Earlier today, she experienced a possible episode of pulmonary edema and is being treated for that. She also apparently complained of some belly pain, which has resolved. Thus far, there has not been a source found for her apparent embolic infarctions. She will be continued on telemetry for monitoring of paroxysmal atrial fibrillation, which is highly likely in a patient of her age. Currently, she does not seem to be a candidate for more invasive testing, but if that should change, we could consider doing a transesophageal echocardiogram to get a better view of her heart as the report indicates that the aortic valve was not well visualized. In addition, we could take a look at the left atrial appendage in this way. In addition, if her renal function continues to improve, a CT angiogram of the neck to capture the aortic arch could also be helpful in determining possible etiology for her strokes if there were significant aortic arch atherosclerosis present. At this time, she will continue her statin and aspirin as well as therapy evaluations and I will continue to follow along. [id number]/[facility] #: [id number] NAZANIN
[2017-01-28] MEDS: Heparin VIAL(*) 5000 UNITS/ML VIAL (FIVE THOUSAND) SUBCUT SCH ×4 (06:06→23:00)
[2017-01-28 06:13] LABS: Hematocrit 34 % (35-47); Hemoglobin 11.4 g/dl (12.0-16.0); Mean Corpuscular HGB Conc 33 g/dl (31-36); Mean Corpuscular Hemoglobin 31 pg (27-31); Mean Corpuscular Volume 94 fL (80-97); Mean Platelet Volume 7 um3 (7.4-10.4); Red Blood Count 3.66 10^6/ul (4.0-5.4); Red Cell Distribution Width 13 % (10.5-15); White Blood Count 11.2 10^3/ul (3.5-10.8)
[2017-01-28 06:30] LABS: BUN/Creatinine Ratio 16.1 (8-20); EGFR African American 47.6 (>60); Potassium 4.5 mmol/L (3.5-5.0)
[2017-01-28 06:31] LABS: Digoxin 3.4 ng/ml (0.8-2.0)
[2017-01-28 08:03] LABS: Magnesium 2.4 mg/dL (1.9-2.7); Phosphorus 3.6 mg/dL (2.5-5.0)
--- NOTE | 2017-01-28 08:40 | PN ---
Subjective Date of Service: 01/28/17 Interval History: Pt developed a. fib with RVR and hypotension last night. Transferred to ICU, speech got worse at night. Robins placed with some difficulty. Today on 5L, still mixed aphasia, appears to understand more than able to make her needs known Converted to NSR on cardizem gtt, no cardizem off. Objective Active Medications: Aspirin (Aspirin Low Dose Tab*) 81 mg PO DAILY [facility] Clonazepam (Klonopin Tab(*)) 0.5 mg PO TID PRN PRN Reason: ANXIETY Heparin Sodium (Porcine) (Heparin Vial(*)) 5,000 units SUBCUT Q8HR [facility] Last Admin: 01/28/17 06:06 Dose: 5,000 units Diltiazem HCl (Cardizem Iv Advan*) 100 mg in 100 mls @ 5 mls/hr IVPB .PER PARAMETERS [place] PRN Reason: 5 MG/HR Lovastatin (Mevacor (Nf)) 10 mg PO BEDTIME [facility] Last Admin: 01/27/17 23:56 Dose: Not Given Morphine Sulfate (Morphine Inj (Syringe)*) 1 mg IV Q2H PRN PRN Reason: PAIN Last Admin: 01/27/17 18:46 Dose: 1 mg Ondansetron HCl (Zofran Inj*) 4 mg IV Q4H PRN PRN Reason: NAUSEA Last Admin: 01/27/17 13:34 Dose: 4 mg Pantoprazole Sodium (Protonix Iv*) 40 mg IV DAILY [facility] Last Admin: 01/27/17 08:13 Dose: 40 mg Tiotropium [place] (Spiriva Cap.Inh*) 1 cap INH QAM [facility] Last Admin: 01/27/17 11:13 Dose: 1 cap Vital Signs 01/27/17 01/27/17 01/27/17 09:28 13:25 13:33 Temperature 97.4 F Pulse Rate 108 Respiratory 14 24 20 Rate Blood Pressure 135/72 (mmHg) O2 Sat by Pulse 95 Oximetry 01/27/17 01/27/17 01/27/17 14:33 16:12 16:28 Temperature 97.4 F Pulse Rate 122 Respiratory 28 28 30 Rate Blood Pressure 131/64 (mmHg) O2 Sat by Pulse 94 Oximetry 01/27/17 01/27/17 01/27/17 16:29 16:57 17:28 Temperature Pulse Rate Respiratory 24 22 Rate Blood Pressure 129/69 (mmHg) O2 Sat by Pulse 95 Oximetry 01/27/17 01/27/17 01/27/17 18:01 18:46 19:42 Temperature Pulse Rate 137 Respiratory 32 20 Rate Blood Pressure 123/32 84/54 (mmHg) O2 Sat by Pulse 92 83 Oximetry 01/27/17 01/27/17 01/27/17 19:49 19:50 19:56 Temperature Pulse Rate 102 120 Respiratory Rate Blood Pressure 90/52 90/52 (mmHg) O2 Sat by Pulse 100 Oximetry 01/27/17 01/27/17 01/27/17 19:59 20:03 20:05 Temperature Pulse Rate Respiratory Rate Blood Pressure 77/39 60/42 82/43 (mmHg) O2 Sat by Pulse 99 Oximetry 01/27/17 01/27/17 01/27/17 20:16 20:20 20:22 Temperature Pulse Rate 123 116 Respiratory 28 26 Rate Blood Pressure 82/64 73/51 107/71 (mmHg) O2 Sat by Pulse 99 100 Oximetry 01/27/17 01/27/17 01/27/17 20:25 20:27 20:30 Temperature 99.7 F Pulse Rate 117 117 117 Respiratory 28 27 25 Rate Blood Pressure 124/76 134/75 134/75 (mmHg) O2 Sat by Pulse 99 100 99 Oximetry 01/27/17 01/27/17 01/27/17 20:35 20:40 20:45 Temperature Pulse Rate 118 119 120 Respiratory 28 29 30 Rate Blood Pressure 127/77 135/76 133/75 (mmHg) O2 Sat by Pulse 100 98 100 Oximetry 01/27/17 01/27/17 01/27/17 20:50 21:00 21:10 Temperature Pulse Rate 120 119 118 Respiratory 28 30 28 Rate Blood Pressure 134/81 139/70 134/88 (mmHg) O2 Sat by Pulse 100 100 98 Oximetry 01/27/17 01/27/17 01/27/17 21:20 21:30 22:00 Temperature Pulse Rate 118 113 Respiratory 27 23 23 Rate Blood Pressure 149/78 121/69 (mmHg) O2 Sat by Pulse 99 99 Oximetry 01/27/17 01/27/17 01/27/17 22:03 22:14 22:20 Temperature Pulse Rate 114 126 120 Respiratory 25 35 31 Rate Blood Pressure 123/92 116/86 (mmHg) O2 Sat by Pulse 99 92 98 Oximetry 01/27/17 01/27/17 01/27/17 22:30 22:40 22:50 Temperature Pulse Rate 123 118 114 Respiratory 33 30 28 Rate Blood Pressure 142/86 141/75 137/73 (mmHg) O2 Sat by Pulse 96 100 100 Oximetry 01/27/17 01/27/17 01/27/17 23:00 23:10 23:20 Temperature Pulse Rate 121 124 121 Respiratory 18 29 28 Rate Blood Pressure 138/80 152/77 114/84 (mmHg) O2 Sat by Pulse 99 99 97 Oximetry 01/27/17 01/27/17 01/28/17 23:30 23:45 00:00 Temperature 98.7 F Pulse Rate 109 111 101 Respiratory 23 27 20 Rate Blood Pressure 143/74 134/70 97/65 (mmHg) O2 Sat by Pulse 100 98 99 Oximetry 01/28/17 01/28/17 01/28/17 00:15 00:30 00:45 Temperature Pulse Rate 97 95 95 Respiratory 19 17 18 Rate Blood Pressure 89/57 107/60 94/54 (mmHg) O2 Sat by Pulse 99 100 100 Oximetry 01/28/17 01/28/17 01/28/17 01:00 01:04 01:15 Temperature Pulse Rate 90 90 87 Respiratory 16 18 17 Rate Blood Pressure 86/51 102/48 70/46 (mmHg) O2 Sat by Pulse 99 98 99 Oximetry 01/28/17 01/28/17 01/28/17 01:16 01:30 01:45 Temperature Pulse Rate 90 85 81 Respiratory 19 16 17 Rate Blood Pressure 89/52 99/55 81/55 (mmHg) O2 Sat by Pulse 98 99 98 Oximetry 01/28/17 01/28/17 01/28/17 02:00 02:15 02:30 Temperature Pulse Rate 86 93 87 Respiratory 17 19 18 Rate Blood Pressure 103/66 100/59 (mmHg) O2 Sat by Pulse 96 92 91 Oximetry 01/28/17 01/28/17 01/28/17 02:45 02:51 03:00 Temperature Pulse Rate 85 92 93 Respiratory 17 20 23 Rate Blood Pressure 91/48 92/60 122/70 (mmHg) O2 Sat by Pulse 92 92 97 Oximetry 01/28/17 01/28/17 01/28/17 03:15 03:30 03:45 Temperature Pulse Rate 96 96 99 Respiratory 23 28 27 Rate Blood Pressure 116/61 105/63 117/76 (mmHg) O2 Sat by Pulse 98 99 99 Oximetry 01/28/17 01/28/17 01/28/17 03:53 04:00 04:15 Temperature 100.1 F Pulse Rate 99 102 Respiratory 21 18 Rate Blood Pressure 128/72 123/68 (mmHg) O2 Sat by Pulse 100 97 Oximetry 01/28/17 01/28/17 01/28/17 04:30 04:45 05:00 Temperature Pulse Rate 94 93 85 Respiratory 20 22 21 Rate Blood Pressure 108/67 135/64 114/59 (mmHg) O2 Sat by Pulse 99 97 98 Oximetry 01/28/17 01/28/17 01/28/17 05:15 05:30 05:45 Temperature Pulse Rate 88 84 82 Respiratory 21 24 18 Rate Blood Pressure 123/60 104/64 123/65 (mmHg) O2 Sat by Pulse 98 98 98 Oximetry 01/28/17 01/28/17 01/28/17 06:00 06:15 06:30 Temperature Pulse Rate 89 89 89 Respiratory 25 17 18 Rate Blood Pressure 116/66 139/74 (mmHg) O2 Sat by Pulse 97 98 98 Oximetry 01/28/17 01/28/17 01/28/17 06:45 07:00 07:15 Temperature Pulse Rate 86 86 92 Respiratory 20 35 24 Rate Blood Pressure 129/68 139/67 131/66 (mmHg) O2 Sat by Pulse 96 97 98 Oximetry 01/28/17 01/28/17 01/28/17 07:30 07:46 08:00 Temperature Pulse Rate 90 90 90 Respiratory 29 25 24 Rate Blood Pressure 131/67 124/79 142/70 (mmHg) O2 Sat by Pulse 98 97 98 Oximetry Oxygen Devices in Use Now: Simple Face Mask - at 5 L Appearance: 81 yo f , alert , with mixed aphasia, usually unable to use the rights words to make her needs known, appears to understand commands more Eyes: No Scleral Icterus, PERRLA Ears/Nose/Mouth/Throat: NL Teeth, Lips, Gums, Mucous Membranes Moist Neck: NL Appearance and Movements; NL JVP, Trachea Midline Respiratory: Symmetrical Chest Expansion and Respiratory Effort, Clear to Auscultation Cardiovascular: NL Sounds; No Murmurs; No JVD, RRR Abdominal: NL Sounds; No Tenderness; No Distention, No Hepatosplenomegaly Lymphatic: No Cervical Adenopathy Extremities: No Edema, No Clubbing, Cyanosis Skin: No Rash or Ulcers, No Nodules or Sclerosis Neurological: - - left facial droop-resolving, motor 5/5 b/l, sensation intact, mixed aphasia present Result Diagrams: 01/28/17 06:00 01/28/17 06:00 Additional Lab and Data: Lab Results 01/26/17 01/26/17 01/26/17 Range/Units 08:42 08:42 08:42 WBC 8.3 (3.5-10.8) 10^3/ul RBC 3.84 L (4.0-5.4) 10^6/ul Hgb 11.9 L (12.0-16.0) g/dl Hct 36 (35-47) % MCV 93 (80-97) fL MCH 31 (27-31) pg MCHC 34 (31-36) g/dl RDW 13 (10.5-15) % Plt Count 380 (150-450) 10^3/ul MPV 7 L (7.4-10.4) um3 Neut % (Auto) 79.1 (38-83) % Lymph % (Auto) 13.9 L (25-47) % [place] % (Auto) 5.7 (1-9) % Eos % (Auto) 0.4 (0-6) % Baso % (Auto) 0.9 (0-2) % Absolute Neuts (auto) 6.6 (1.5-7.7) 10^3/ul Absolute Lymphs (auto) 1.2 (1.0-4.8) 10^3/ul Absolute Monos (auto) 0.5 (0-0.8) 10^3/ul Absolute Eos (auto) 0 (0-0.6) 10^3/ul Absolute Basos (auto) 0.1 (0-0.2) 10^3/ul Absolute Nucleated RBC 0 10^3/ul Nucleated RBC % 0 INR (Anticoag Therapy) 0.86 L (0.89-1.11) APTT 29.1 (26.0-36.3) seconds Sodium 135 (133-145) mmol/L Potassium 4.2 (3.5-5.0) mmol/L Chloride 107 (101-111) mmol/L Carbon Dioxide 21 L (22-32) mmol/L Anion Gap 7 (2-11) mmol/L BUN 38 H (6-24) mg/dL Creatinine 1.71 H (0.51-0.95) mg/dL Est GFR ( Amer) 36.8 (>60) Est GFR (Non-Af Amer) 28.7 (>60) BUN/Creatinine Ratio 22.2 H (8-20) Glucose 92 (70-100) mg/dL Lactic Acid (0.5-2.0) mmol/L Calcium 9.1 (8.6-10.3) mg/dL Magnesium 2.0 (1.9-2.7) mg/dL Total Bilirubin 0.30 (0.2-1.0) mg/dL AST 19 (13-39) U/L ALT 11 (7-52) U/L Alkaline Phosphatase 54 (34-104) U/L Ammonia (16-53) mol/L Total Creatine Kinase 82 (10-223) U/L CK-MB (CK-2) 3.2 (0.6-6.3) ng/mL Troponin I 0.00 (<0.04) ng/mL C-Reactive Protein 4.66 (< 5.00) mg/L B-Natriuretic Peptide ( - 100) pg/mL Total Protein 6.8 (6.4-8.9) g/dL Albumin 4.3 (3.2-5.2) g/dL Globulin 2.5 (2-4) g/dL Albumin/Globulin Ratio 1.7 (1-3) Triglycerides 105 mg/dL Cholesterol 112 mg/dL LDL Cholesterol 49 mg/dL HDL Cholesterol 41.9 mg/dL Lipase 27 (11.0-82.0) U/L TSH 4.48 (0.34-5.60) mcIU/mL Salicylates < 2.50 (<30) mg/dL Acetaminophen < 15 mcg/mL Serum Alcohol < 10 (<10) mg/dL 01/26/17 01/26/17 Range/Units 08:42 08:42 WBC (3.5-10.8) 10^3/ul RBC (4.0-5.4) 10^6/ul Hgb (12.0-16.0) g/dl Hct (35-47) % MCV (80-97) fL MCH (27-31) pg MCHC (31-36) g/dl RDW (10.5-15) % Plt Count (150-450) 10^3/ul MPV (7.4-10.4) um3 Neut % (Auto) (38-83) % Lymph % (Auto) (25-47) % [place] % (Auto) (1-9) % Eos % (Auto) (0-6) % Baso % (Auto) (0-2) % Absolute Neuts (auto) (1.5-7.7) 10^3/ul Absolute Lymphs (auto) (1.0-4.8) 10^3/ul Absolute Monos (auto) (0-0.8) 10^3/ul Absolute Eos (auto) (0-0.6) 10^3/ul Absolute Basos (auto) (0-0.2) 10^3/ul Absolute Nucleated RBC 10^3/ul Nucleated RBC % INR (Anticoag Therapy) (0.89-1.11) APTT (26.0-36.3) seconds Sodium (133-145) mmol/L Potassium (3.5-5.0) mmol/L Chloride (101-111) mmol/L Carbon Dioxide (22-32) mmol/L Anion Gap (2-11) mmol/L BUN (6-24) mg/dL Creatinine (0.51-0.95) mg/dL Est GFR ( Amer) (>60) Est GFR (Non-Af Amer) (>60) BUN/Creatinine Ratio (8-20) Glucose (70-100) mg/dL Lactic Acid 1.3 (0.5-2.0) mmol/L Calcium (8.6-10.3) mg/dL Magnesium (1.9-2.7) mg/dL Total Bilirubin (0.2-1.0) mg/dL AST (13-39) U/L ALT (7-52) U/L Alkaline Phosphatase (34-104) U/L Ammonia 30 (16-53) mol/L Total Creatine Kinase (10-223) U/L CK-MB (CK-2) (0.6-6.3) ng/mL Troponin I (<0.04) ng/mL C-Reactive Protein (< 5.00) mg/L B-Natriuretic Peptide 652 H ( - 100) pg/mL Total Protein (6.4-8.9) g/dL Albumin (3.2-5.2) g/dL Globulin (2-4) g/dL Albumin/Globulin Ratio (1-3) Triglycerides mg/dL Cholesterol mg/dL LDL Cholesterol mg/dL HDL Cholesterol mg/dL Lipase (11.0-82.0) U/L TSH (0.34-5.60) mcIU/mL Salicylates (<30) mg/dL Acetaminophen mcg/mL Serum Alcohol (<10) mg/dL Microbiology and Other Data: Microbiology 01/26/17 09:59 Urine Culture - Final Urine Assess/Plan/Problems-Billing Assessment: 81 yo f with h/o HTN, dyslipidemia who presented with aphasia and left sided weakness. - Patient Problems (1) CVA (cerebral vascular accident) Comment: acute -embolic, due to a. fib noted on 01/27/17 cont ASA Carotid dopplers shows close to 69% stenosis on R. CTA miller to re-evel recommended once renal function improves. MRI brain showed multiple embolic CVA's in R caudate as well as left temporal, occipital and parietal lobes. Echo with bubble neg for PFO, EF 55% Appreciate neurology's assistance. due to A. fib noted on 01/26/17 pt will need to be placed on anticoagulation in the near future. Swallow re-eval pending. PT/OT ongoing, PMRU consult placed (2) Abdominal pain Comment: resolved s far. cont IV Protonix for now CT abd/plevis on 01/27/17 unremarkable (3) DELMER (acute kidney injury) Comment: appears prerenal, resolving (4) Abnormal urinalysis Comment: U. cx neg, will stop Ceftriaxone (5) Dyslipidemia Comment: LDL 51, cont current statin (6) HTN (hypertension) Comment: all BP meds stopped, controlled (7) COPD (chronic obstructive pulmonary disease) Comment: not in exacerbation, cont spiriva (8) DVT prophylaxis Comment: heparin sc (9) Paroxysmal a-fib Comment: new dx, likely the cause of her embolic CVA's will start short acting cardizem once able to take PO Status and Disposition: inpatient
[2017-01-28] MEDS: Pantoprazole IV* 40 MG IV SCH (10:41)
[2017-01-28] MEDS: Aspirin Low Dose CHEW TAB* 81 MG PO SCH (10:41)
[2017-01-28] MEDS ORDERED: Amiodarone 360 MG IVPREMIX* 360 MG/200 ML BAG IV ONE ×2 (11:23→18:12)
[2017-01-28] MEDS ORDERED: Diltiazem TAB* 60 MG PO SCH (12:00)
[2017-01-28] MEDS: Tiotropium CAP.INH* CAP.INH/18 MCG (USE ORDER SET !) INH SCH (12:54)
--- NOTE | 2017-01-28 15:27 | CONS ---
CC: Dr. Box; Dr. Emerson * CONSULTATION REPORT: DATE OF CONSULT: 01/28/17 INDICATION FOR CONSULTATION: Atrial fibrillation. HISTORY OF PRESENT ILLNESS: Patient is an 81-year-old female who was brought to the hospital on January 26 with dysarthria and was diagnosed with a CVA. She was admitted to the intensive care unit. She had a consult with Dr. Emerson from Neurology who diagnosed the patient with a hemorrhagic stroke. Patient was noted to be in atrial fibrillation when she came into the hospital. Anticoagulation was not started on her arrival because of the stroke. Since then, patient has been in the intensive care unit, she has been going in and out of atrial fibrillation with rapid ventricular response. She did have an echocardiogram yesterday which showed normal LV size and systolic function. No significant valvular abnormalities, no evidence of shunting. PAST MEDICAL HISTORY: Significant for COPD and hypertension. OUTPATIENT MEDICATIONS: 1. Remeron 15 mg a day. 2. Losartan 5 mg a day. 3. Spiriva inhaler. 4. Klonopin. 5. Atenolol 12.5 mg a day. 6. Lovastatin 10 mg q.h.s. 7. Diltiazem XR 180 mg a day. ALLERGIES: No known drug allergies. FAMILY HISTORY: Not obtained. SOCIAL HISTORY: She is a previous smoker. She quit 10 years ago. Rare alcohol intake. PHYSICAL EXAM: Height is 5 feet 6 inches, weight is 143 pounds. Temperature 99.2, heart rate is 97, respiratory rate is 24, blood pressure 130/73. Sclerae anicteric. Oropharynx is pink without erythema. Carotids are 2+ without bruits. JVD is normal. Thyroid is normal. Cardiac Exam: S1 and S2 without any murmurs, rubs, or gallops. Lungs are clear to auscultation bilaterally. No dullness to percussion. Abdomen is soft, nontender, nondistended with normoactive bowel sounds. Extremities showed no edema. She has 2+ pulses throughout. Patient could not get up and ambulate. Patient was awake, but could not articulate because of her dysarthria. DIAGNOSTIC STUDIES/LABORATORY DATA: EKG yesterday demonstrated atrial fibrillation with a heart rate of 160. Telemetry today shows normal sinus rhythm. White count of 11.2, hemoglobin of 11, hematocrit 34, platelet count 281. Chemistries within normal limits. BUN 20, creatinine 1.3. BNP 652. Total cholesterol 111, HDL 44, LDL 51. TSH is normal at 4.48. IMPRESSION: This is an 81-year-old female with a history of hypertension, and COPD who was admitted to the hospital with a stroke. The stroke has a residual dysarthria. Because of the potential for hemorrhagic stroke, patient was not placed on anticoagulation. This morning, patient is in normal sinus rhythm. RECOMMENDATIONS: It is my recommendation that the patient be encouraged to stay in normal sinus rhythm. I recommend starting IV amiodarone with a loading bolus. Patient currently is having difficulty with swallowing. Thus oral loading of amiodarone may be difficult. Patient will continue on IV amiodarone for 24 hours and then hopefully switch over to oral form at that time. I do not think any other cardiac testing is necessary at this time. Patient should start anticoagulation as soon possible when Neurology is comfortable with anticoagulation. This was discussed with Dr. Cochran. [id number]/[facility] #: [id number] NAZANIN
[2017-01-28] MEDS: Sucralfate TAB* 1 GM PO SCH (17:21)
[2017-01-28] MEDS: clonazePAM TAB(*) 0.5 MG PO PRN ×2 (18:17→22:58)
[2017-01-28] MEDS: Amiodarone 360 MG IVPREMIX* 360 MG/200 ML BAG IV SCH (18:22)
[2017-01-28] MEDS: CMC:Lovastatin (NF) 10 MG TAB PO SCH ×2 (22:13→23:00)
[2017-01-28] MEDS: Senna TAB PO SCH ×2 (22:13→23:00)
[2017-01-28] MEDS: Morphine INJ* 4 MG/ML 1 ML CARPUJECT IV PRN (22:47)
--- NOTE | 2017-01-29 05:01 | PN ---
PROGRESS NOTE: DATE OF FOLLOWUP: 01/28/17 OVERNIGHT EVENTS: Last evening, Mrs. Osorio went into atrial fibrillation with rapid ventricular response, which was associated with hypotension and hypoxia. She was able to be rate controlled with diltiazem and digoxin. She was moved to the ICU for closer monitoring. Today, her nurse reports that she is a bit confused thinking that she is in her home and is trying to speak with her children who are not present in the room at this time. She is having more understandable speech, however. MEDICATIONS: Reviewed and include: 1. Aspirin 81 mg daily. 2. Clonazepam 0.5 mg t.i.d. p.r.n. anxiety. 3. Lovastatin 10 mg at bedtime. 4. Heparin 5000 units subcu q.8 hours. 5. Protonix 40 mg daily. 6. Spiriva. PHYSICAL EXAMINATION: Vital Signs: Temperature 99.2, blood pressure 130/73, heart rate 97, and she is in sinus rhythm, oxygen saturation is 99% on Ventimask. General Exam: The patient was in no acute distress. She was observed to be speaking mostly gibberish while alone in the room. Her heart is in a regular rate and rhythm with no obvious murmurs. The lungs are clear anteriorly to auscultation. Neurologic Examination: She has a receptive greater than expressive aphasia at this point. She was able to name all but 1 object on the stroke cards. She was able to read approximately 50% of the phrases on the stroke cards. She is unable to reliably follow verbal commands. On cranial nerve testing, she continues to have a right homonymous hemianopsia. There is no significant facial asymmetry today. Her limbs appear to be full strength without any significant pronator drift in the upper extremities. Sensation is intact to noxious stimulation. She underwent repeat head CT last evening, which demonstrated continued evolution of the known left temporoparietal infarct as well as the right basal ganglia infarct without any evidence for hemorrhagic transformation. LABORATORY DATA/DIAGNOSTIC DATA: Laboratory data reviewed, includes a CBC, which showed a white count of 13.8 last evening, which improved to 11.2 today, hematocrit 34. BMP has been notable for low CO2 of 18, which has improved to 20 today and her creatinine is stable at 1.73. 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 This is the most likely etiology for her stroke. Given the volume of her strokes, I think a full dose anticoagulation should be held for 7 days after her stroke, which occurred on the . Until then, she should be continued on aspirin as well as her statin. The Hospitalist and Cardiology are working on rate control to avoid hypotension. I note that her carotid ultrasound had shown some stenosis bilaterally, which was worse on the right, but which would not warrant any kind of immediate surgical intervention. Given that we discovered AFib, I do not think that we need to proceed with CT angiogram any longer. In addition, we could hold off on a YOVANI similarly. [id number]/[facility] #: [id number] NAZANIN
[2017-01-29] MEDS: Amiodarone 360 MG IVPREMIX* 360 MG/200 ML BAG IV SCH (05:39)
[2017-01-29] MEDS: Heparin VIAL(*) 5000 UNITS/ML VIAL (FIVE THOUSAND) SUBCUT SCH ×3 (05:39→22:00)
[2017-01-29] MEDS: Sucralfate TAB* 1 GM PO SCH ×3 (06:14→17:03)
[2017-01-29 06:44] LABS: Hematocrit 32 % (35-47); Mean Corpuscular HGB Conc 34 g/dl (31-36); Mean Corpuscular Hemoglobin 32 pg (27-31); Mean Corpuscular Volume 93 fL (80-97); Mean Platelet Volume 8 um3 (7.4-10.4); Red Blood Count 3.45 10^6/ul (4.0-5.4); Red Cell Distribution Width 14 % (10.5-15); White Blood Count 10.9 10^3/ul (3.5-10.8)
[2017-01-29] MEDS: Morphine INJ* 4 MG/ML 1 ML CARPUJECT IV PRN ×2 (06:46→22:51)
[2017-01-29 06:55] LABS: BUN/Creatinine Ratio 21.9 (8-20); EGFR African American 47.6 (>60); Potassium 4.3 mmol/L (3.5-5.0)
[2017-01-29] MEDS: Aspirin Low Dose CHEW TAB* 81 MG PO SCH (08:53)
[2017-01-29] MEDS: Tiotropium CAP.INH* CAP.INH/18 MCG (USE ORDER SET !) INH SCH ×2 (08:53→10:33)
[2017-01-29] MEDS: Pantoprazole IV* 40 MG IV SCH (08:54)
[2017-01-29] MEDS ORDERED: Amiodarone TAB* 200 MG PO ONE (11:50)
--- NOTE | 2017-01-29 12:01 | PN ---
Subjective Date of Service: 01/29/17 - CC: nurse: hypoxia, patient denies c/o. Interval History: Patient seated, O2 on, denies c/o, but vague answers. Medications Active Medications: Amiodarone HCl (Cordarone Tab*) 200 mg PO BID [facility] Aspirin (Aspirin Low Dose Tab*) 81 mg PO DAILY [facility] Last Admin: 01/29/17 08:53 Dose: 81 mg Clonazepam (Klonopin Tab(*)) 0.5 mg PO TID PRN PRN Reason: ANXIETY Last Admin: 01/28/17 22:58 Dose: 0.5 mg Heparin Sodium (Porcine) (Heparin Vial(*)) 5,000 units SUBCUT Q8HR [facility] Last Admin: 01/29/17 05:39 Dose: 5,000 units Amiodarone HCl (Nexterone 360 Mg/200 Ml Ivpremix*) 360 mg in 200 mls @ 16.666 mls/hr IV .PER PROTOCOL MINGO; 0.5 MG/MIN PRN Reason: Protocol Stop: 01/29/17 12:30 Last Admin: 01/29/17 05:39 Dose: 16.666 mls/hr Lovastatin (Mevacor (Nf)) 10 mg PO BEDTIME [facility] Last Admin: 01/28/17 23:00 Dose: Not Given Morphine Sulfate (Morphine Inj (Syringe)*) 1 mg IV Q2H PRN PRN Reason: PAIN Last Admin: 01/29/17 06:46 Dose: 1 mg Pantoprazole Sodium (Protonix Iv*) 40 mg IV DAILY [facility] Last Admin: 01/29/17 08:54 Dose: 40 mg Senna (Senokot Tab*) 2 tab PO BEDTIME [facility] Last Admin: 01/28/17 23:00 Dose: Not Given Sucralfate (Carafate*) 1 gm PO 0700,1100,1600 [facility] Last Admin: 01/29/17 06:14 Dose: 1 gm Tiotropium Hamilton (Spiriva Cap.Inh*) 1 cap INH QAM [facility] Last Admin: 01/29/17 10:33 Dose: 1 cap Objective Vital Signs: Temp Pulse Resp BP Pulse Ox 98.1 F 94 24 126/73 97 01/29/17 08:30 01/29/17 10:35 01/29/17 10:35 01/29/17 10:00 01/29/17 10:35 Oxygen Devices in Use Now: Nasal Cannula - at 5 L Appearance: elderly female, lean and frail seated, O2 on, comfortable at rest. Eyes: No Scleral Icterus, PERRLA Ears/Nose/Mouth/Throat: Mucous Membranes Moist Neck: Trachea Midline - increased JVP left neck sitting upright. Respiratory: Symmetrical Chest Expansion and Respiratory Effort, Clear to Auscultation - distant breathsounds. Cardiovascular: RRR - no murmers Abdominal: NL Sounds; No Tenderness; No Distention Extremities: No Edema, No Clubbing, Cyanosis Skin: No Rash or Ulcers Lines/Tubes/Other Access: Clean, Dry and Intact Peripheral IV Laboratory Results: 01/29/17 06:03 01/29/17 06:03 PT Cancelled 01/27/17 20:20 INR (Anticoag Therapy) 0.90 (0.89-1.11) 01/27/17 23:05 APTT 29.1 seconds (26.0-36.3) 01/26/17 08:42 Total Bilirubin 0.30 mg/dL (0.2-1.0) 01/26/17 08:42 AST 19 U/L (13-39) 01/26/17 08:42 ALT 11 U/L (7-52) 01/26/17 08:42 Alkaline Phosphatase 54 U/L (34-104) 01/26/17 08:42 CK-MB (CK-2) 3.2 ng/mL (0.6-6.3) 01/26/17 08:42 B-Natriuretic Peptide 652 pg/mL (-100) H 01/26/17 08:42 Total Protein 6.8 g/dL (6.4-8.9) 01/26/17 08:42 Albumin 4.3 g/dL (3.2-5.2) 01/26/17 08:42 Globulin 2.5 g/dL (2-4) 01/26/17 08:42 Albumin/Globulin Ratio 1.7 (1-3) 01/26/17 08:42 Triglycerides 80 mg/dL 01/27/17 04:36 Cholesterol 111 mg/dL 01/27/17 04:36 LDL Cholesterol 51 mg/dL 01/27/17 04:36 HDL Cholesterol 44.0 mg/dL 01/27/17 04:36 TSH 4.48 mcIU/mL (0.34-5.60) 01/26/17 08:42 EKG Data: Monitor: sinus rhythm, sinus tachycardia walking. Assessment/Plan 81 yo admitted with CVA, initially unintelligible speech (improved), telemetry revealed paroxysmal afib/flutter. Currently on IV amiodarone. Nursing concerns include sinus tachycardia, tachypnea and hypoxemia walking to commode. AFIB: Agree with amiodarone, OK to initiate oral amiodarone today as per Dr. Craven 200 mg BID. No anticoagulation at this point in time re: embolic stroke, fresh as per neurology recommendations.. Hypoxia/tachycardia: Does not appear cardiac, normal LV and RV systolic function. PA pressure 53 mmHg on recent echo. Consider COPD Consider PE Consider metabolic, low bicarb noted. Avoid overdiuresis, dehydration could lead to tachycardia and diastolic dysfunction/hypotension. CVA: Still expressive aphasia.
--- NOTE | 2017-01-29 13:32 | RAD ---
Indication: Stroke. Shortness of breath. Comparison: January 29, 2017 chest radiograph. Technique: Following administration of 7.800 mCi xenon-133 by inhalation anterior and posterior ventilation images were obtained. Following the administration of 6.170 mCi of Tc-99m macroaggregated albumin, perfusion images were obtained in multiple projections. Report: Uniform ventilation pattern with evidence for bilateral air trapping. Markedly abnormal bilateral perfusion pattern with near complete absence of perfusion to the RIGHT lung and multiple segmental and subsegmental defects at the LEFT lung. IMPRESSION: Extensive bilateral unmatched pulmonary perfusion defects. High probability for pulmonary embolism. Results to Dr. Cochran 01/29/2017 1:24 PM EDT
--- NOTE | 2017-01-29 13:32 | RAD ---
Indication: Stroke. Hypoxemia. High probability VQ scan for pulmonary embolism. Comparison: VQ scan of the same date and January 27, 2017 chest radiograph. Technique: Upright AP 1215 hours Report: Mild bilateral infrahilar linear opacities without volume loss most consistent with subsegmental atelectasis. Negative for pleural effusion or pneumothorax. The heart, pulmonary vasculature, and mediastinal contours are unremarkable. IMPRESSION: Mild subsegmental atelectasis without additional radiographic abnormality.
[2017-01-29] MEDS ORDERED: Simethicone TAB* 80 MG TAB.CHEW PO PRN (13:44)
--- NOTE | 2017-01-29 14:58 | RAD ---
HISTORY: Large pulmonary embolism COMPARISONS: None relevant TECHNIQUE: Multiple transverse and longitudinal ultrasound images were obtained of the bilateral lower extremities from the level of the common femoral vein inferiorly through to the infrapopliteal veins using grayscale, color Doppler, and spectral Doppler imaging with and without compression and with augmentation. FINDINGS: VEINS: There is thrombus noted within the peroneal veins bilaterally and within the right posterior tibial veins. There is no extension into the supra popliteal venous system bilaterally. The remainder of the venous system of the bilateral lower extremities is compressible throughout its course, with normal flow on color Doppler imaging and normal response to augmentation on spectral Doppler imaging. SOFT TISSUES: Unremarkable. OTHER FINDINGS: None. IMPRESSION: BILATERAL CALF VEIN THROMBUS
--- NOTE | 2017-01-29 15:46 | PN ---
Subjective Date of Service: 01/29/17 Interval History: Pt feels better today. had a V/Q scan that showed PE on R side. Objective Active Medications: Amiodarone HCl (Cordarone Tab*) 200 mg PO BID [facility] Aspirin (Aspirin Low Dose Tab*) 81 mg PO DAILY [facility] Last Admin: 01/29/17 08:53 Dose: 81 mg Clonazepam (Klonopin Tab(*)) 0.5 mg PO TID PRN PRN Reason: ANXIETY Last Admin: 01/28/17 22:58 Dose: 0.5 mg Heparin Sodium (Porcine) (Heparin Vial(*)) 5,000 units SUBCUT Q8HR [facility] Last Admin: 01/29/17 14:10 Dose: 5,000 units Lovastatin (Mevacor (Nf)) 10 mg PO BEDTIME [facility] Last Admin: 01/28/17 23:00 Dose: Not Given Morphine Sulfate (Morphine Inj (Syringe)*) 1 mg IV Q2H PRN PRN Reason: PAIN Last Admin: 01/29/17 06:46 Dose: 1 mg Pantoprazole Sodium (Protonix Iv*) 40 mg IV DAILY [facility] Last Admin: 01/29/17 08:54 Dose: 40 mg Senna (Senokot Tab*) 2 tab PO BEDTIME [facility] Last Admin: 01/28/17 23:00 Dose: Not Given Simethicone (Mylicon*) 80 mg PO Q6H PRN PRN Reason: DISCOMFORT Sucralfate (Carafate*) 1 gm PO 0700,1100,1600 [facility] Last Admin: 01/29/17 12:16 Dose: 1 gm Tiotropium Ozan (Spiriva Cap.Inh*) 1 cap INH QAM [facility] Last Admin: 01/29/17 10:33 Dose: 1 cap Vital Signs 01/28/17 01/28/17 01/28/17 16:00 17:00 17:15 Temperature 98.9 F Pulse Rate 88 104 95 Respiratory 21 20 31 Rate Blood Pressure 139/83 152/69 (mmHg) O2 Sat by Pulse 96 94 91 Oximetry 01/28/17 01/28/17 01/28/17 18:00 19:00 20:00 Temperature 98.3 F Pulse Rate 76 92 89 Respiratory 30 25 28 Rate Blood Pressure 127/64 110/60 130/66 (mmHg) O2 Sat by Pulse 93 94 95 Oximetry 01/28/17 01/28/17 01/28/17 21:00 21:20 22:00 Temperature Pulse Rate 89 89 86 Respiratory 25 25 25 Rate Blood Pressure 123/81 123/81 102/69 (mmHg) O2 Sat by Pulse 96 95 96 Oximetry 01/28/17 01/28/17 01/29/17 22:47 23:00 00:00 Temperature 97 F Pulse Rate 104 94 Respiratory 38 28 20 Rate Blood Pressure 143/90 138/82 (mmHg) O2 Sat by Pulse 96 98 Oximetry 01/29/17 01/29/17 01/29/17 00:05 01:00 02:00 Temperature Pulse Rate 95 81 80 Respiratory 21 19 18 Rate Blood Pressure 97/59 103/67 (mmHg) O2 Sat by Pulse 98 98 99 Oximetry 01/29/17 01/29/17 01/29/17 03:00 04:00 05:00 Temperature 97.1 F Pulse Rate 77 76 84 Respiratory 19 17 21 Rate Blood Pressure 131/57 109/73 136/70 (mmHg) O2 Sat by Pulse 98 99 97 Oximetry 01/29/17 01/29/17 01/29/17 06:00 06:46 07:00 Temperature Pulse Rate 90 Respiratory 25 24 21 Rate Blood Pressure 145/75 128/72 (mmHg) O2 Sat by Pulse 95 Oximetry 01/29/17 01/29/17 01/29/17 08:00 08:30 09:00 Temperature 98.1 F Pulse Rate 91 99 Respiratory 28 26 Rate Blood Pressure 126/75 151/79 (mmHg) O2 Sat by Pulse 96 93 Oximetry 01/29/17 01/29/17 01/29/17 10:00 10:35 11:00 Temperature Pulse Rate 99 94 101 Respiratory 24 24 27 Rate Blood Pressure 126/73 101/66 (mmHg) O2 Sat by Pulse 94 97 93 Oximetry 01/29/17 01/29/17 01/29/17 12:00 13:13 13:25 Temperature 98.4 F Pulse Rate 97 104 Respiratory 21 Rate Blood Pressure 121/70 (mmHg) O2 Sat by Pulse 93 95 Oximetry 01/29/17 14:00 Temperature Pulse Rate 98 Respiratory 27 Rate Blood Pressure 144/84 (mmHg) O2 Sat by Pulse 98 Oximetry Oxygen Devices in Use Now: Nasal Cannula - at 5 L Appearance: 81 yo F in nAD, unable to tell me where she is due to mixed aphasia , but able to communicate and make her needs known, knows her Eyes: No Scleral Icterus, PERRLA Ears/Nose/Mouth/Throat: NL Teeth, Lips, Gums, Mucous Membranes Moist Neck: NL Appearance and Movements; NL JVP, Trachea Midline Respiratory: Symmetrical Chest Expansion and Respiratory Effort, Clear to Auscultation Cardiovascular: NL Sounds; No Murmurs; No JVD, - - irregular Abdominal: - - mild epigastric tenderness, no rebound, no guarding BS+ Lymphatic: No Cervical Adenopathy Extremities: No Edema Skin: No Rash or Ulcers, No Nodules or Sclerosis Neurological: - - left facial droop and mixed aphasia-improving, no motor weakness in extremities noted Result Diagrams: 01/29/17 06:03 01/29/17 06:03 Additional Lab and Data: Lab Results 01/26/17 01/26/17 01/26/17 Range/Units 08:42 08:42 08:42 WBC 8.3 (3.5-10.8) 10^3/ul RBC 3.84 L (4.0-5.4) 10^6/ul Hgb 11.9 L (12.0-16.0) g/dl Hct 36 (35-47) % MCV 93 (80-97) fL MCH 31 (27-31) pg MCHC 34 (31-36) g/dl RDW 13 (10.5-15) % Plt Count 380 (150-450) 10^3/ul MPV 7 L (7.4-10.4) um3 Neut % (Auto) 79.1 (38-83) % Lymph % (Auto) 13.9 L (25-47) % [place] % (Auto) 5.7 (1-9) % Eos % (Auto) 0.4 (0-6) % Baso % (Auto) 0.9 (0-2) % Absolute Neuts (auto) 6.6 (1.5-7.7) 10^3/ul Absolute Lymphs (auto) 1.2 (1.0-4.8) 10^3/ul Absolute Monos (auto) 0.5 (0-0.8) 10^3/ul Absolute Eos (auto) 0 (0-0.6) 10^3/ul Absolute Basos (auto) 0.1 (0-0.2) 10^3/ul Absolute Nucleated RBC 0 10^3/ul Nucleated RBC % 0 INR (Anticoag Therapy) 0.86 L (0.89-1.11) APTT 29.1 (26.0-36.3) seconds Sodium 135 (133-145) mmol/L Potassium 4.2 (3.5-5.0) mmol/L Chloride 107 (101-111) mmol/L Carbon Dioxide 21 L (22-32) mmol/L Anion Gap 7 (2-11) mmol/L BUN 38 H (6-24) mg/dL Creatinine 1.71 H (0.51-0.95) mg/dL Est GFR ( Amer) 36.8 (>60) Est GFR (Non-Af Amer) 28.7 (>60) BUN/Creatinine Ratio 22.2 H (8-20) Glucose 92 (70-100) mg/dL Lactic Acid (0.5-2.0) mmol/L Calcium 9.1 (8.6-10.3) mg/dL Magnesium 2.0 (1.9-2.7) mg/dL Total Bilirubin 0.30 (0.2-1.0) mg/dL AST 19 (13-39) U/L ALT 11 (7-52) U/L Alkaline Phosphatase 54 (34-104) U/L Ammonia (16-53) mol/L Total Creatine Kinase 82 (10-223) U/L CK-MB (CK-2) 3.2 (0.6-6.3) ng/mL Troponin I 0.00 (<0.04) ng/mL C-Reactive Protein 4.66 (< 5.00) mg/L B-Natriuretic Peptide ( - 100) pg/mL Total Protein 6.8 (6.4-8.9) g/dL Albumin 4.3 (3.2-5.2) g/dL Globulin 2.5 (2-4) g/dL Albumin/Globulin Ratio 1.7 (1-3) Triglycerides 105 mg/dL Cholesterol 112 mg/dL LDL Cholesterol 49 mg/dL HDL Cholesterol 41.9 mg/dL Lipase 27 (11.0-82.0) U/L TSH 4.48 (0.34-5.60) mcIU/mL Salicylates < 2.50 (<30) mg/dL Acetaminophen < 15 mcg/mL Serum Alcohol < 10 (<10) mg/dL 01/26/17 01/26/17 Range/Units 08:42 08:42 WBC (3.5-10.8) 10^3/ul RBC (4.0-5.4) 10^6/ul Hgb (12.0-16.0) g/dl Hct (35-47) % MCV (80-97) fL MCH (27-31) pg MCHC (31-36) g/dl RDW (10.5-15) % Plt Count (150-450) 10^3/ul MPV (7.4-10.4) um3 Neut % (Auto) (38-83) % Lymph % (Auto) (25-47) % [place] % (Auto) (1-9) % Eos % (Auto) (0-6) % Baso % (Auto) (0-2) % Absolute Neuts (auto) (1.5-7.7) 10^3/ul Absolute Lymphs (auto) (1.0-4.8) 10^3/ul Absolute Monos (auto) (0-0.8) 10^3/ul Absolute Eos (auto) (0-0.6) 10^3/ul Absolute Basos (auto) (0-0.2) 10^3/ul Absolute Nucleated RBC 10^3/ul Nucleated RBC % INR (Anticoag Therapy) (0.89-1.11) APTT (26.0-36.3) seconds Sodium (133-145) mmol/L Potassium (3.5-5.0) mmol/L Chloride (101-111) mmol/L Carbon Dioxide (22-32) mmol/L Anion Gap (2-11) mmol/L BUN (6-24) mg/dL Creatinine (0.51-0.95) mg/dL Est GFR ( Amer) (>60) Est GFR (Non-Af Amer) (>60) BUN/Creatinine Ratio (8-20) Glucose (70-100) mg/dL Lactic Acid 1.3 (0.5-2.0) mmol/L Calcium (8.6-10.3) mg/dL Magnesium (1.9-2.7) mg/dL Total Bilirubin (0.2-1.0) mg/dL AST (13-39) U/L ALT (7-52) U/L Alkaline Phosphatase (34-104) U/L Ammonia 30 (16-53) mol/L Total Creatine Kinase (10-223) U/L CK-MB (CK-2) (0.6-6.3) ng/mL Troponin I (<0.04) ng/mL C-Reactive Protein (< 5.00) mg/L B-Natriuretic Peptide 652 H ( - 100) pg/mL Total Protein (6.4-8.9) g/dL Albumin (3.2-5.2) g/dL Globulin (2-4) g/dL Albumin/Globulin Ratio (1-3) Triglycerides mg/dL Cholesterol mg/dL LDL Cholesterol mg/dL HDL Cholesterol mg/dL Lipase (11.0-82.0) U/L TSH (0.34-5.60) mcIU/mL Salicylates (<30) mg/dL Acetaminophen mcg/mL Serum Alcohol (<10) mg/dL Microbiology and Other Data: Microbiology 01/26/17 09:59 Urine Culture - Final Urine Assess/Plan/Problems-Billing Assessment: 81 yo f with h/o HTN, dyslipidemia who presented with aphasia and left sided weakness. - Patient Problems (1) CVA (cerebral vascular accident) Comment: acute -embolic, due to a. fib noted on 01/27/17 cont ASA Carotid dopplers shows close to 69% stenosis on R, but no clinical significance due to cardioembolic source of CVA MRI brain showed multiple embolic CVA's in R caudate as well as left temporal, occipital and parietal lobes. Echo with bubble neg for PFO, EF 55% Appreciate neurology's assistance. due to A. fib noted on 01/26/17 pt will need to be placed on anticoagulation on 02/02/17 With concurrent dx of acute PE discussed the possibilty of starting anticoagulation today with Dr. Emerson, unfortunately due to large CVA the risk of ICH is too siginificant to start/offer anticoagulation right now. Family aware and agreed. (2) Paroxysmal a-fib Comment: new dx, likely the cause of her embolic CVA's appreciate cardiology's assistance On amiodarone gtt and amiodarone PO (3) Acute pulmonary embolus Comment: V/Q scan showed a large perfusion defect in R lung. Cannot anticoagulate due to extensive CVA. D/w Dr. Mendoza who will see pt in consideration of IVC fiter (family aware and agreed to procedure) VL dopplers positive fopr B/L DVT in LE's (4) Abdominal pain Comment: due to gas? abd soft and mildy tender. Had a regular BM on 01/28/17 cont IV Protonix for now CT abd/plevis on 01/27/17 unremarkable (5) DELMER (acute kidney injury) Comment: appears prerenal, will restart gentle IVF (6) Abnormal urinalysis Comment: U. cx neg- Ceftriaxone stopped on 01/28/17 (7) Dyslipidemia Comment: LDL 51, cont current statin (8) HTN (hypertension) Comment: all BP meds stopped, controlled (9) COPD (chronic obstructive pulmonary disease) Comment: not in exacerbation, cont spiriva (10) DVT prophylaxis Comment: heparin sc Status and Disposition: inpatient
[2017-01-29] MEDS: NS 0.9% 1000 ML* 1,000 ML IV SCH (17:02)
--- NOTE | 2017-01-29 21:03 | CONS ---
CC: Dr. Augustine Box; Dr. Low Craven; Dr. Emilia Emerson * SURGICAL CONSULTATION REPORT: DATE OF CONSULT: 01/29/17 LOCATION: The patient is in ICU2. REASON FOR CONSULT: I was contacted by the hospitalist service to evaluate Ms. Jess Osorio for possible IVC filter. HISTORY OF PRESENT ILLNESS: Briefly, she is an 81-year-old woman who suffered a cerebrovascular accident between 01/25/17 and 01/26/17. She presented to the emergency room, where she was admitted and treated for stroke, followed by Neurology, felt not to be a candidate for tPA, noted to have a nonhemorrhagic stroke, but out of the window for tPA and admitted for workup and continued observation. On hospital day 3, the patient did show signs of being in AFib and then today noted to have some shortness of breath. She had been on oxygen therapy and was worked up with a V/Q scan. This report was reviewed and showed extensive bilateral unmatched pulmonary perfusion defects with a high probability for pulmonary embolus. She underwent a venous Doppler study at around the same time , was noted to have bilateral calf vein thrombus, but no upper leg DVT. The patient's last meal was lunch time at approximately 1 o'clock. It is notable that on previous CAT scans on this admission, the patient had significant motion artifact. She is aphasic now and all the history is gained through the chart as the patient is unable to answer any questions specifically to me. She is not in any distress, is on oxygen, sitting up in bed. PHYSICAL EXAM: The patient is afebrile. Respirations are low 20s with an O2 sat of 98% on 5 L. She is normotensive. Again, she is awake, it is unclear if she is alert. She is both aphasic, she is unable to write as well. Family members are not available, but I will reach out to them. The patient shows no use of accessory muscles and she has no calf tenderness. IMPRESSION AND PLAN: Likely pulmonary embolism with a highly probable V/Q scan and with calf thrombi in a patient who is 81 years old, aphasic and seemingly unable to understand commands, who I feel would potentially benefit from an inferior vena cava filter; however, I believe the risks at this time, given the patient has eaten, are too high for rushing her off to the operating room. We will make her n.p.o. and look towards placing an inferior vena cava filter tomorrow. I will discuss this with my partners and the operating room team. I will discuss this case with the hospitalist service. The patient is on subcutaneous heparin. We will have to discontinue any SCDs at this time. We will watch the patient closely and I understand that she is not a candidate for Coumadin in the short period. It will be likely she would require a retrievable inferior vena cava filter if the patient would be a candidate for Coumadin for anticoagulation down the road. The patient cannot sign her consent at this time and family members are not available. I will reach out to them and let them know. We are looking for tomorrow; it does put her at risk, but I believe the risks of urgent surgery with the patient who ate only 3-/12 hours ago poses a higher risk. [id number]/[facility] #: [id number] MTDD
[2017-01-29] MEDS: Senna TAB PO SCH (21:59)
[2017-01-29] MEDS: CMC:Lovastatin (NF) 10 MG TAB PO SCH (21:59)
[2017-01-29] MEDS: Amiodarone TAB* 200 MG PO SCH (21:59)
[2017-01-29] MEDS: clonazePAM TAB(*) 0.5 MG PO PRN (22:00)
[2017-01-30] MEDS: Heparin VIAL(*) 5000 UNITS/ML VIAL (FIVE THOUSAND) SUBCUT SCH ×3 (05:04→22:46)
[2017-01-30 05:30] LABS: BUN/Creatinine Ratio 21.6 (8-20); Calcium 8.9 mg/dL (8.6-10.3); EGFR African American 52.9 (>60); EGFR Non-African American 41.1 (>60); Potassium 4.2 mmol/L (3.5-5.0)
[2017-01-30] MEDS: Sucralfate TAB* 1 GM PO SCH ×3 (06:20→17:28)
[2017-01-30] MEDS: Tiotropium CAP.INH* CAP.INH/18 MCG (USE ORDER SET !) INH SCH (08:29)
--- NOTE | 2017-01-30 08:41 | PN ---
Subjective Date of Service: 01/30/17 Interval History: Today upon awakening pt appears to have more problems with sensory aphasia- understanding commands Objective Active Medications: Amiodarone HCl (Cordarone Tab*) 200 mg PO BID [facility] Last Admin: 01/29/17 21:59 Dose: 200 mg Aspirin (Aspirin Low Dose Tab*) 81 mg PO DAILY [facility] Last Admin: 01/29/17 08:53 Dose: 81 mg Clonazepam (Klonopin Tab(*)) 0.5 mg PO TID PRN PRN Reason: ANXIETY Last Admin: 01/29/17 22:00 Dose: 0.5 mg Heparin Sodium (Porcine) (Heparin Vial(*)) 5,000 units SUBCUT Q8HR [facility] Last Admin: 01/30/17 05:04 Dose: 5,000 units Sodium Chloride (Ns 0.9% 1000 Ml*) 1,000 mls @ 60 mls/hr IV .PER RATE [facility] Last Admin: 01/29/17 17:02 Dose: 60 mls/hr Lovastatin (Mevacor (Nf)) 10 mg PO BEDTIME [facility] Last Admin: 01/29/17 21:59 Dose: 10 mg Morphine Sulfate (Morphine Inj (Syringe)*) 1 mg IV Q2H PRN PRN Reason: PAIN Last Admin: 01/29/17 22:51 Dose: 1 mg Pantoprazole Sodium (Protonix Iv*) 40 mg IV DAILY [facility] Last Admin: 01/29/17 08:54 Dose: 40 mg Senna (Senokot Tab*) 2 tab PO BEDTIME [facility] Last Admin: 01/29/17 21:59 Dose: 2 tab Simethicone (Mylicon*) 80 mg PO Q6H PRN PRN Reason: DISCOMFORT Sucralfate (Carafate*) 1 gm PO 0700,1100,1600 [facility] Last Admin: 01/30/17 06:20 Dose: 1 gm Tiotropium [place] (Spiriva Cap.Inh*) 1 cap INH QAM [facility] Last Admin: 01/30/17 08:29 Dose: 1 cap Vital Signs 01/29/17 01/29/17 01/29/17 09:00 10:00 10:35 Temperature Pulse Rate 99 99 94 Respiratory 26 24 24 Rate Blood Pressure 151/79 126/73 (mmHg) O2 Sat by Pulse 93 94 97 Oximetry 01/29/17 01/29/17 01/29/17 11:00 12:00 13:13 Temperature Pulse Rate 101 97 104 Respiratory 27 21 Rate Blood Pressure 101/66 121/70 (mmHg) O2 Sat by Pulse 93 93 95 Oximetry 01/29/17 01/29/17 01/29/17 13:25 14:00 15:00 Temperature 98.4 F Pulse Rate 98 93 Respiratory 27 25 Rate Blood Pressure 144/84 145/85 (mmHg) O2 Sat by Pulse 98 98 Oximetry 01/29/17 01/29/17 01/29/17 15:59 16:00 17:00 Temperature 98.4 F Pulse Rate 96 100 Respiratory 22 29 30 Rate Blood Pressure 142/88 141/88 (mmHg) O2 Sat by Pulse 95 99 Oximetry 01/29/17 01/29/17 01/29/17 18:00 19:00 20:00 Temperature 98.2 F Pulse Rate 98 107 103 Respiratory 24 30 44 Rate Blood Pressure 133/90 136/77 150/82 (mmHg) O2 Sat by Pulse 96 98 98 Oximetry 01/29/17 01/29/17 01/29/17 21:00 21:01 22:00 Temperature Pulse Rate 86 84 100 Respiratory 24 25 31 Rate Blood Pressure 111/56 (mmHg) O2 Sat by Pulse 93 93 93 Oximetry 01/29/17 01/29/17 01/29/17 22:01 22:51 23:00 Temperature Pulse Rate 100 99 Respiratory 33 33 25 Rate Blood Pressure 144/83 147/77 (mmHg) O2 Sat by Pulse 94 97 Oximetry 01/29/17 01/29/17 01/30/17 23:40 23:44 00:00 Temperature 98.4 F Pulse Rate 86 86 Respiratory 20 19 Rate Blood Pressure 94/57 (mmHg) O2 Sat by Pulse 98 97 Oximetry 01/30/17 01/30/17 01/30/17 01:00 02:00 02:50 Temperature Pulse Rate 80 81 Respiratory 19 19 28 Rate Blood Pressure 103/62 113/61 (mmHg) O2 Sat by Pulse 97 97 Oximetry 01/30/17 01/30/17 01/30/17 03:00 04:00 05:00 Temperature 99.1 F Pulse Rate 86 92 94 Respiratory 19 23 26 Rate Blood Pressure 113/70 139/69 (mmHg) O2 Sat by Pulse 97 97 96 Oximetry 01/30/17 01/30/17 01/30/17 05:01 05:28 06:00 Temperature Pulse Rate 95 95 Respiratory 28 22 24 Rate Blood Pressure 129/75 129/72 (mmHg) O2 Sat by Pulse 95 94 Oximetry 01/30/17 07:45 Temperature 98.8 F Pulse Rate Respiratory Rate Blood Pressure (mmHg) O2 Sat by Pulse Oximetry Oxygen Devices in Use Now: Nasal Cannula - at 5 L Appearance: 81 yo F in nAD, with mixed aphasia, difficulty following verbal commands noted, occasionally able to say a full sentence, but from time to time speaking "wors salad" Eyes: No Scleral Icterus, PERRLA Ears/Nose/Mouth/Throat: NL Teeth, Lips, Gums, Mucous Membranes Moist Neck: NL Appearance and Movements; NL JVP, Trachea Midline Respiratory: Symmetrical Chest Expansion and Respiratory Effort, Clear to Auscultation Cardiovascular: NL Sounds; No Murmurs; No JVD, RRR Abdominal: - - mildly tender in epigastrium, no rebound, no guarding Lymphatic: No Cervical Adenopathy Extremities: No Edema, No Clubbing, Cyanosis Skin: No Rash or Ulcers, No Nodules or Sclerosis Neurological: - - left facial droop -mild, mixed aphasia Result Diagrams: 01/29/17 06:03 01/30/17 05:05 Additional Lab and Data: Lab Results 01/26/17 01/26/17 01/26/17 Range/Units 08:42 08:42 08:42 WBC 8.3 (3.5-10.8) 10^3/ul RBC 3.84 L (4.0-5.4) 10^6/ul Hgb 11.9 L (12.0-16.0) g/dl Hct 36 (35-47) % MCV 93 (80-97) fL MCH 31 (27-31) pg MCHC 34 (31-36) g/dl RDW 13 (10.5-15) % Plt Count 380 (150-450) 10^3/ul MPV 7 L (7.4-10.4) um3 Neut % (Auto) 79.1 (38-83) % Lymph % (Auto) 13.9 L (25-47) % [place] % (Auto) 5.7 (1-9) % Eos % (Auto) 0.4 (0-6) % Baso % (Auto) 0.9 (0-2) % Absolute Neuts (auto) 6.6 (1.5-7.7) 10^3/ul Absolute Lymphs (auto) 1.2 (1.0-4.8) 10^3/ul Absolute Monos (auto) 0.5 (0-0.8) 10^3/ul Absolute Eos (auto) 0 (0-0.6) 10^3/ul Absolute Basos (auto) 0.1 (0-0.2) 10^3/ul Absolute Nucleated RBC 0 10^3/ul Nucleated RBC % 0 INR (Anticoag Therapy) 0.86 L (0.89-1.11) APTT 29.1 (26.0-36.3) seconds Sodium 135 (133-145) mmol/L Potassium 4.2 (3.5-5.0) mmol/L Chloride 107 (101-111) mmol/L Carbon Dioxide 21 L (22-32) mmol/L Anion Gap 7 (2-11) mmol/L BUN 38 H (6-24) mg/dL Creatinine 1.71 H (0.51-0.95) mg/dL Est GFR ( Amer) 36.8 (>60) Est GFR (Non-Af Amer) 28.7 (>60) BUN/Creatinine Ratio 22.2 H (8-20) Glucose 92 (70-100) mg/dL Lactic Acid (0.5-2.0) mmol/L Calcium 9.1 (8.6-10.3) mg/dL Magnesium 2.0 (1.9-2.7) mg/dL Total Bilirubin 0.30 (0.2-1.0) mg/dL AST 19 (13-39) U/L ALT 11 (7-52) U/L Alkaline Phosphatase 54 (34-104) U/L Ammonia (16-53) mol/L Total Creatine Kinase 82 (10-223) U/L CK-MB (CK-2) 3.2 (0.6-6.3) ng/mL Troponin I 0.00 (<0.04) ng/mL C-Reactive Protein 4.66 (< 5.00) mg/L B-Natriuretic Peptide ( - 100) pg/mL Total Protein 6.8 (6.4-8.9) g/dL Albumin 4.3 (3.2-5.2) g/dL Globulin 2.5 (2-4) g/dL Albumin/Globulin Ratio 1.7 (1-3) Triglycerides 105 mg/dL Cholesterol 112 mg/dL LDL Cholesterol 49 mg/dL HDL Cholesterol 41.9 mg/dL Lipase 27 (11.0-82.0) U/L TSH 4.48 (0.34-5.60) mcIU/mL Salicylates < 2.50 (<30) mg/dL Acetaminophen < 15 mcg/mL Serum Alcohol < 10 (<10) mg/dL 01/26/17 01/26/17 Range/Units 08:42 08:42 WBC (3.5-10.8) 10^3/ul RBC (4.0-5.4) 10^6/ul Hgb (12.0-16.0) g/dl Hct (35-47) % MCV (80-97) fL MCH (27-31) pg MCHC (31-36) g/dl RDW (10.5-15) % Plt Count (150-450) 10^3/ul MPV (7.4-10.4) um3 Neut % (Auto) (38-83) % Lymph % (Auto) (25-47) % [place] % (Auto) (1-9) % Eos % (Auto) (0-6) % Baso % (Auto) (0-2) % Absolute Neuts (auto) (1.5-7.7) 10^3/ul Absolute Lymphs (auto) (1.0-4.8) 10^3/ul Absolute Monos (auto) (0-0.8) 10^3/ul Absolute Eos (auto) (0-0.6) 10^3/ul Absolute Basos (auto) (0-0.2) 10^3/ul Absolute Nucleated RBC 10^3/ul Nucleated RBC % INR (Anticoag Therapy) (0.89-1.11) APTT (26.0-36.3) seconds Sodium (133-145) mmol/L Potassium (3.5-5.0) mmol/L Chloride (101-111) mmol/L Carbon Dioxide (22-32) mmol/L Anion Gap (2-11) mmol/L BUN (6-24) mg/dL Creatinine (0.51-0.95) mg/dL Est GFR ( Amer) (>60) Est GFR (Non-Af Amer) (>60) BUN/Creatinine Ratio (8-20) Glucose (70-100) mg/dL Lactic Acid 1.3 (0.5-2.0) mmol/L Calcium (8.6-10.3) mg/dL Magnesium (1.9-2.7) mg/dL Total Bilirubin (0.2-1.0) mg/dL AST (13-39) U/L ALT (7-52) U/L Alkaline Phosphatase (34-104) U/L Ammonia 30 (16-53) mol/L Total Creatine Kinase (10-223) U/L CK-MB (CK-2) (0.6-6.3) ng/mL Troponin I (<0.04) ng/mL C-Reactive Protein (< 5.00) mg/L B-Natriuretic Peptide 652 H ( - 100) pg/mL Total Protein (6.4-8.9) g/dL Albumin (3.2-5.2) g/dL Globulin (2-4) g/dL Albumin/Globulin Ratio (1-3) Triglycerides mg/dL Cholesterol mg/dL LDL Cholesterol mg/dL HDL Cholesterol mg/dL Lipase (11.0-82.0) U/L TSH (0.34-5.60) mcIU/mL Salicylates (<30) mg/dL Acetaminophen mcg/mL Serum Alcohol (<10) mg/dL Microbiology and Other Data: Microbiology 01/26/17 09:59 Urine Culture - Final Urine Assess/Plan/Problems-Billing Assessment: 81 yo f with h/o HTN, dyslipidemia who presented with aphasia and left sided weakness. - Patient Problems (1) CVA (cerebral vascular accident) Comment: acute -embolic, due to a. fib noted on 01/27/17 cont ASA Carotid dopplers shows close to 69% stenosis on R, but no clinical significance due to cardioembolic source of CVA MRI brain showed multiple embolic CVA's in R caudate as well as left temporal, occipital and parietal lobes. Echo with bubble neg for PFO, EF 55% Appreciate neurology's assistance. due to A. fib noted on 01/26/17 pt will need to be placed on anticoagulation on 02/02/17 With concurrent dx of acute PE discussed the possibilty of starting anticoagulation on 01/29/[address] Emerson, unfortunately due to large CVA the risk of ICH is too siginificant to start/offer anticoagulation right now. Family aware and agreed. due to CVA pt has dysphaga and is on nectar thick liquids, speech tx following (2) Paroxysmal a-fib Comment: new dx, likely the cause of her embolic CVA's appreciate cardiology's assistance Off amiodarone gtt and on amiodarone PO In sinus tachy today (3) Acute pulmonary embolus Comment: V/Q scan showed a large perfusion defect in R lung onm 01/29/17 Cannot anticoagulate due to extensive CVA. D/w Dr. Mendoza who will see pt in consideration of IVC fiter (family aware and agreed to procedure)-will happen today VL dopplers positive for B/L DVT in LE's (4) Abdominal pain Comment: due to gas? abd soft and mildy tender. Had a regular BM on 01/28/17 cont IV Protonix for now CT abd/plevis on 01/27/17 unremarkable (5) DELMER (acute kidney injury) Comment: appears prerenal, cont gentle IVF (6) Abnormal urinalysis Comment: U. cx neg- Ceftriaxone stopped on 01/28/17 (7) Dyslipidemia Comment: LDL 51, cont current statin (8) HTN (hypertension) Comment: all BP meds stopped, controlled (9) COPD (chronic obstructive pulmonary disease) Comment: not in exacerbation, cont spiriva (10) DVT prophylaxis Comment: heparin sc Status and Disposition: inpatient
[2017-01-30] MEDS: Amiodarone TAB* 200 MG PO SCH ×2 (09:47→20:50)
[2017-01-30] MEDS: Aspirin Low Dose CHEW TAB* 81 MG PO SCH (09:47)
[2017-01-30] MEDS: Pantoprazole IV* 40 MG IV SCH (09:47)
[2017-01-30] MEDS: NS 0.9% 1000 ML* 1,000 ML IV SCH (09:52)
--- NOTE | 2017-01-30 11:45 | PN ---
PROGRESS NOTE: DATE OF FOLLOWUP: 01/29/17 HISTORY: The patient has continued to have hypoxia and underwent a V/Q scan earlier today, which de monstrated extensive unmatched pulmonary perfusion defects bilaterally with high probability for PE. There was complete absence of perfusion to the right lung and multiple segmental and subsegmental defects of the left lung. Otherwise, she has remained medically stable. Her neurologic deficits con tinue to improve. MEDICATIONS: Reviewed and include: 1. Amiodarone 200 mg daily. 2. Aspirin 81 mg daily. 3. Clonazepam 0.5 mg t.i.d. p.r.n. anxiety. 4. Heparin 5000 units subcu q.8 hours. 5. Lovastatin 10 mg at bedtime. 6. Morphine 1 mg IV q.2 hours p.r.n. 7. Pantoprazole 40 mg daily. 8. Senna 2 tablets at bedtime. 9. Simethicone 80 mg p.o. q.6 hours p.r.n. 10. Normal saline at 60 mL per hour. 11. Carafate 1 g 3 times daily. 12. Spiriva 1 capsule daily. PHYSICAL EXAMINATION: Vital Signs: Temperature 98.4, blood pressure 142/88, heart rate 96, oxygen saturation is 95% on 5 L. On physical examination, she is awake, alert, and in no acute distress. She was able to carry on so me simple conversation today. She still has a receptive greater than expressive aphasia. Her namin g was nearly fully intact. She was again able to read about 50% of the words off the stroke cards. She is able to follow commands to close her eyes, but not able to follow commands to protrude her t ongue or show me her thumb. Otherwise, her versions are full. Her visual willoughby show a right homon ymous hemianopsia. Her face is essentially symmetric. The tongue is midline. She has a very sligh t drift of the left upper extremity and otherwise strength is full. Sensation is intact to noxious stimulation. DATA: V/Q scan reviewed as above. CBC shows her white count to be 10.9, improved from 11.2 yesterd ay; hematocrit of 32 from 34. Chemistries show a slightly low CO2 of 19, stable creatinine of 1.37 with a BUN of 30. IMPRESSION: Jess Osorio is an 81-year-old woman with bilateral embolic infarctions in the left and right MCA distributions resulting in receptive greater than expressive aphasia as well as right visual field cut and some essentially resolved left-sided weakness. She has been maintained on aspi rin given the volume of her infarcts despite the discovery of atrial fibrillation. Now she has been found to have bilateral pulmonary embolisms and is requiring oxygen. I discussed with Dr. Cochran ear lier today the risks of full anticoagulation at this point, given the volume of her batista and timin g from the onset of her batista, but she is only 3 days at this point. We agreed that her risks woul d probably outweigh benefits in starting even a heparin drip at this point and Dr. Cochran contacted [facility] for placement of an IVC filter, which I believe is planned for tomorrow. I think potentially on the , we could consider starting anticoagulation at that time, 5 days after her stroke as marcel g as CT of the brain is obtained and shows no evidence for having a hemorrhagic transformation. [id number]/[facility] #: [id number]
[2017-01-30] MEDS ORDERED: ceFAZolin 2 GM PREMIX (*) 50 ML IVPB ONE (12:42)
[2017-01-30] MEDS ORDERED: Midazolam* 1 MG/ML 5 ML VIAL (5 MG) ONE (13:02)
[2017-01-30] MEDS ORDERED: Lidocaine 1% INJ* 10 MG/ML 30 ML SDV ONE (13:19)
[2017-01-30] MEDS ORDERED: Heparin 2 UNITS/ML IVPREMIX* 1,000 ML IV ONE (13:19)
[2017-01-30] MEDS ORDERED: fentaNYL* 50 MCG/ML 2 ML VIAL (100 MCG VIAL) ONE (13:26)
[2017-01-30] MEDS ORDERED: Ondansetron INJ* 2 MG/ML VIAL IV PRN (13:27)
[2017-01-30] MEDS ORDERED: fentaNYL* 50 MCG/ML 2 ML VIAL (100 MCG VIAL) IV PRN (13:27)
--- NOTE | 2017-01-30 14:04 | RAD ---
CPT II Codes: 6045F INDICATION: IVC filter placement. Fluoroscopic services provided for referring physician for IVC filter placement. 29.2 seconds of fluoroscopy time was used. Single spot image demonstrates IVC filter between L3 and L4 on the right. IMPRESSION: Fluoroscopic services provided for referring physician for IVC filter placement.
--- NOTE | 2017-01-30 19:08 | RAD ---
INDICATION: Pain and swelling. COMPARISON: None TECHNIQUE: Duplex interrogation of the left upperextremity was performed. FINDINGS: Deep veins: The visualized jugular, visualized subclavian, axillary, brachial, radial, and ulnar veins are patent. There is normal compressibility, augmentation, and phasic flow. Superficial veins: There are superficial thrombophlebitis in the left cephalic vein at the level the proximal humerus. The basilic vein is patent Soft tissues:There are no soft tissue abnormalities. IMPRESSION: THROMBUS WITHIN THE CEPHALIC VEIN CONSISTENT WITH SUPERFICIAL THROMBOPHLEBITIS. NO EVIDENCE OF DEEP VENOUS THROMBOSIS.
[2017-01-30] MEDS: Senna TAB PO SCH (20:51)
[2017-01-30] MEDS: CMC:Lovastatin (NF) 10 MG TAB PO SCH (20:57)
[2017-01-30] MEDS: clonazePAM TAB(*) 0.5 MG PO PRN (22:46)
[2017-01-31] MEDS: NS 0.9% 1000 ML* 1,000 ML IV SCH ×2 (03:38→20:02)
[2017-01-31] MEDS ORDERED: Bisacodyl SUPP* 10 MG SUPP PR ONE (04:00)
[2017-01-31] MEDS: Morphine INJ* 4 MG/ML 1 ML CARPUJECT IV PRN (04:31)
[2017-01-31 04:48] LABS: Hematocrit 33 % (35-47); Hemoglobin 10.9 g/dl (12.0-16.0); Mean Corpuscular HGB Conc 34 g/dl (31-36); Mean Corpuscular Hemoglobin 32 pg (27-31); Mean Corpuscular Volume 94 fL (80-97); Mean Platelet Volume 8 um3 (7.4-10.4); Red Blood Count 3.46 10^6/ul (4.0-5.4); Red Cell Distribution Width 13 % (10.5-15); White Blood Count 9.8 10^3/ul (3.5-10.8)
--- NOTE | 2017-01-31 04:50 | OP ---
CC: Augustine Box MD * DATE OF OPERATION: 01/30/17.- ROOM #ICU-02 DATE OF : 35 SURGEON: Silverio Garcias MD SLEEVE WHEEL MAKER: None. ANESTHESIOLOGIST: Dr. Galvan. ANESTHESIA: LMAC. PRE-OP DIAGNOSES: Pulmonary embolus and deep vein thrombosis. POST-OP DIAGNOSES: Pulmonary embolus and deep vein thrombosis. OPERATIVE PROCEDURE: Placement of right transfemoral vena cava filter. COMPLICATIONS: There were no complications. DRAINS: No drains. SPECIMEN: No pathologic specimens. ESTIMATED BLOOD LOSS: Less than 10 mL. DESCRIPTION OF PROCEDURE: The patient was supine on the fluoroscopy table. The right groin area was prepped with antiseptic and draped in a sterile fashion. She had intravenous antibiotic and sedative and local anesthetic was administered. Femoral venipuncture was carried out without difficulty. Guidewire was passed under fluoroscopic guidance and the dilator introducer was passed and then the retrievable transfemoral filter was placed through the introducer. It was released at approximately the L2-3 level and seemed to open up very nicely. he sheath was with-drawn, pressure was held for several minutes. 5-0 Vicryl suture was used to the skin followed by Steri-Strips. She tolerated the procedure well and was brought to recovery. [id number]/[facility] #: [id number] [facility]
[2017-01-31 05:04] LABS: BUN/Creatinine Ratio 17.6 (8-20); EGFR African American 52.9 (>60); EGFR Non-African American 41.1 (>60); Potassium 3.7 mmol/L (3.5-5.0)
[2017-01-31] MEDS: Sucralfate TAB* 1 GM PO SCH ×3 (06:41→16:00)
[2017-01-31] MEDS: Heparin VIAL(*) 5000 UNITS/ML VIAL (FIVE THOUSAND) SUBCUT SCH (06:41)
--- NOTE | 2017-01-31 08:21 | RAD ---
HISTORY: Infarct, evaluate for hemorrhagic transformation COMPARISONS: January 27, 2017 TECHNIQUE: Multiple contiguous axial CT scans were obtained of the head without intravenous contrast. FINDINGS: HEMORRHAGE/INFARCT: There is hypoattenuation consistent with subacute nonhemorrhagic infarcts of the left parietal lobe, and right thalamus. There is right frontal encephalomalacia consistent with remote infarct. Elsewhere, there is no hemorrhage or acute infarct. MASSES/SHIFT: There is no mass or shift. EXTRA-AXIAL SPACES: There are no extra-axial fluid collections. SULCI AND VENTRICLES: The sulci and ventricles are normal in size and position for the patient's stated age. CEREBRUM: As noted above, there is hypoattenuation consistent with subacute nonhemorrhagic infarcts of the left parietal lobe and right thalamus with right frontal encephalomalacia BRAINSTEM: There are no focal parenchymal abnormalities. CEREBELLUM: There are no focal parenchymal abnormalities. VESSELS: The vessels are grossly normal. PARANASAL SINUSES: The paranasal sinuses are clear. ORBITS: The orbits are unremarkable. BONES AND SOFT TISSUE: No bone or soft tissue abnormalities are noted. OTHER: None IMPRESSION: MULTIFOCAL SUBACUTE NONHEMORRHAGIC INFARCTS.
[2017-01-31] MEDS: Aspirin Low Dose CHEW TAB* 81 MG PO SCH (08:45)
[2017-01-31] MEDS: Pantoprazole IV* 40 MG IV SCH (08:45)
[2017-01-31] MEDS: Amiodarone TAB* 200 MG PO SCH ×2 (08:45→20:02)
--- NOTE | 2017-01-31 08:48 | PN ---
Subjective Date of Service: 01/31/17 Interval History: HOSPITALIST PROGRESS NOTE Patient seen and examined at bedside. Marked expressive aphasia with significant paraphrasic errors, but able to tell me she has no pain. Knows she's in the hospital because she had a stroke. Her major concern is she won't get better. Denies dyspnea or chest pain. Family History: Unchanged from Admission Social History: Unchanged from Admission Past Medical History: Unchanged from Admission Objective Active Medications: Acetaminophen (Tylenol Tab*) 650 mg PO Q6H PRN PRN Reason: MILD PAIN/FEVER Amiodarone HCl (Cordarone Tab*) 200 mg PO BID [facility] Last Admin: 01/30/17 20:50 Dose: 200 mg Aspirin (Aspirin Low Dose Tab*) 81 mg PO DAILY [facility] Last Admin: 01/30/17 09:47 Dose: 81 mg Clonazepam (Klonopin Tab(*)) 0.5 mg PO TID PRN PRN Reason: ANXIETY Last Admin: 01/30/17 22:46 Dose: 0.5 mg Heparin Sodium (Porcine) (Heparin Vial(*)) 5,000 units SUBCUT Q8HR [facility] Last Admin: 01/31/17 06:41 Dose: 5,000 units Sodium Chloride (Ns 0.9% 1000 Ml*) 1,000 mls @ 60 mls/hr IV .PER RATE [facility] Last Admin: 01/31/17 03:38 Dose: 60 mls/hr Lovastatin (Mevacor (Nf)) 10 mg PO BEDTIME [facility] Last Admin: 01/30/17 20:57 Dose: 10 mg Morphine Sulfate (Morphine Inj (Syringe)*) 1 mg IV Q2H PRN PRN Reason: PAIN Last Admin: 01/31/17 04:31 Dose: 1 mg Pantoprazole Sodium (Protonix Iv*) 40 mg IV DAILY [facility] Last Admin: 01/30/17 09:47 Dose: 40 mg Senna (Senokot Tab*) 2 tab PO BEDTIME [facility] Last Admin: 01/30/17 20:51 Dose: 2 tab Simethicone (Mylicon*) 80 mg PO Q6H PRN PRN Reason: DISCOMFORT Last Admin: 01/30/17 22:46 Dose: 80 mg Sucralfate (Carafate*) 1 gm PO 0700,1100,1600 [facility] Last Admin: 01/31/17 06:41 Dose: 1 gm Tiotropium [place] (Spiriva Cap.Inh*) 1 cap INH QAM [facility] Last Admin: 01/30/17 08:29 Dose: 1 cap Vital Signs 01/31/17 01/31/17 01/31/17 07:00 07:19 07:47 Temperature 98 F Pulse Rate 98 Respiratory 19 18 Rate Blood Pressure 151/76 (mmHg) O2 Sat by Pulse 97 Oximetry 01/31/17 01/31/17 08:00 08:01 Temperature Pulse Rate 95 Respiratory 19 22 Rate Blood Pressure 146/70 (mmHg) O2 Sat by Pulse 97 Oximetry Oxygen Devices in Use Now: Nasal Cannula - at 5 L Appearance: Elderly lady sitting up in bed in NAD. Eyes: No Scleral Icterus Ears/Nose/Mouth/Throat: Mucous Membranes Moist Neck: Trachea Midline Respiratory: Symmetrical Chest Expansion and Respiratory Effort, Clear to Auscultation Cardiovascular: - - Normal S1 and S2, irregularly irregular Abdominal: NL Sounds; No Tenderness; No Distention Extremities: No Edema Skin: - - Faint macular rash to ACW and shoulders Neurological: - - Alert and awake, oriented to self and place, able to [place], but has some difficulty following commands Lines/Tubes/Other Access: Clean, Dry and Intact Peripheral IV Nutrition: Taking PO's Result Diagrams: 01/31/17 04:40 01/31/17 04:40 Assess/Plan/Problems-Billing Assessment: Mrs. Osorio is an 81 yo F with PMH of COPD, HTN, who presented to ED with aphasia and left sided weakness, found to have Afib and embolic CVAs. 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 - Head MRA was negative. - Carotid dopplers shows 50-69% stenosis on the right, but this episode is cardioembolic secondary to Afib. This can be addressed as outpatient when she's stable. - Echo showed EF 55-60% with negative bubble study. - Patient needs anticoagulation for her Afib, PE/DVT, but initially, risk of bleeding was too high. Neurology input appreciated, d/w family - now that she's >5 days out of her CVA, benefits of anticoagulation surpass risks. Recommendation is to d/c Aspirin, start heparin drip with no boluses and transition to Warfarin. - Resume PT, OT, and continue speech therapy. (2) Paroxysmal a-fib Comment: - New diagnosis this admission, likely the cause of her embolic CVAs. - Continue amiodarone PO. - Start heparin drip with no boluses. (3) Acute pulmonary embolus Comment: - W/u included V/Q scan showed a large perfusion defect in R lung on and VL dopplers positive for B/L DVT in LEs. - Was not anticoagulated due to extensive CVA, but plan is to start heparin drip with no boluses today and transition to warfarin. - s/p IVC filter 01/30/17. - With CVA, PE, DVT - will request Hematology evaluation for possible hypercoagulable state. (4) DELMER (acute kidney injury) Comment: - Suspect prerenal DELMER on top of CKD. - Continue gentle IVF as her PO intake is still poor. (5) Rash Comment: - Macular rash suggestive of hives - Benadryl PRN itching and monitor. (6) Dyslipidemia Comment: - LDL 51, continue Lovastatin. (7) HTN (hypertension) Comment: - Controlled off meds. (8) COPD (chronic obstructive pulmonary disease) Comment: - Stable. - Continue Spiriva. (9) DVT prophylaxis Comment: - Heparin drip. (10) Full code status Status and Disposition: Inpatient for CVA, PE, DVT, requiring >48h for stabilization. Will need rehab upon discharge.
[2017-01-31] MEDS: Tiotropium CAP.INH* CAP.INH/18 MCG (USE ORDER SET !) INH SCH (08:58)
[2017-01-31] MEDS ORDERED: Heparin VIAL(*) 5000 UNITS/ML VIAL (FIVE THOUSAND) IV SCH (12:00)
--- NOTE | 2017-01-31 12:46 | PN ---
PROGRESS NOTE: DATE OF FOLLOWUP: 01/30/17 HISTORY: The patient underwent placement of her IVC filter around 1 p.m. this afternoon. Apparentl y, over the course of the day, a flat erythematous rash has been noted first over her breast, then i n her groin, and then spreading to the backs of her legs and on her back as well. Since she returne d from the OR as well, she has been expressing pain in her left upper extremity and there is redness and swelling there at the site of previous peripheral IV. Otherwise, she continues to improve neurologically. MEDICATIONS: Reviewed and include: 1. Aspirin 81 mg daily. 2. Mevacor 10 mg at bedtime. PHYSICAL EXAMINATION: Vital Signs: Temperature 99.8, blood pressure 135/96, heart rate 98, oxygen saturation 94% on 4 L. On general examination, she is an elderly woman, in no acute distress. Her heart is in a regular ra te and rhythm with no murmurs, rubs or gallops. Lungs are clear to auscultation. She had a very te nder, swollen, erythematous, and firm left upper extremity. This is restricting her movement of justin t arm. On neurologic examination, she is fully awake and alert. She says hello when the examiner e nters the room. She knows the name of her visitor and is able to state it. She states her own date of and stated her name, but used her maiden name. She had some greater difficulty explaining the [employer] picture in terms of producing words that were relevant to the picture, but her nam ing was fully intact and her reading was quite improved compared to yesterday. She read at least 3 sentences completely accurately. She was able to follow command to close her eyes, make a fist, and show me her thumb. Otherwise, she still has a right homonymous hemianopsia. Her strength in her l eft arm is very difficult to test today secondary to her pain. Otherwise, her strength appears full throughout. Sensation is intact to noxious stimulation in the upper and lower extremities. DIAGNOSTIC STUDIES/LAB DATA: Her creatinine has improved to 1.25 today from 1.37 and her BUN is 27. Lower extremity Dopplers were completed yesterday and showed bilateral calf vein thromboses. 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 Neurologically, she has been improving with rec eptive, greater than expressive, aphasia and right visual field cut. She has been on aspirin given the volume of her infarcts, but tomorrow we could obtain a repeat brain CT and if negative for any h emorrhagic transformation, then could consider beginning anticoagulation 5 days out from her stroke. She underwent IVC filter placement today. Given the swelling, pain, and erythema in her left uppe r extremity at the site of the previous IV, she may have superficial phlebitis there and I have orde red a Doppler to help determine whether she might have any deeper vein clot in that arm as well. Th e more diffuse rash, which the nurse described, maybe related to the Ancef that she received in the OR today, but the hospitalist will be evaluating this as well. Dr. Walker will be taking over the neurology consultation service this evening and will receive sig n out on the patient. [id number]/[facility] #: [id number]
[2017-01-31] MEDS: Heparin DRIP 25,000 UNITS(*) 25,000 UNITS/500 ML BAG IV SCH (13:02)
[2017-01-31 13:25] LABS: Hematocrit 34 % (35-47); Hemoglobin 11.1 g/dl (12.0-16.0); Mean Corpuscular HGB Conc 33 g/dl (31-36); Mean Corpuscular Hemoglobin 31 pg (27-31); Mean Corpuscular Volume 95 fL (80-97); Mean Platelet Volume 9 um3 (7.4-10.4); Red Blood Count 3.61 10^6/ul (4.0-5.4); Red Cell Distribution Width 13 % (10.5-15); White Blood Count 12.6 10^3/ul (3.5-10.8)
[2017-01-31] MEDS: clonazePAM TAB(*) 0.5 MG PO PRN ×2 (14:13→20:02)
[2017-01-31] MEDS ORDERED: LORazepam INJ* 2 MG/ML 1 ML VIAL ONE (16:48)
[2017-01-31] MEDS: LORazepam INJ* 2 MG/ML 1 ML VIAL IV PUSH PRN (17:03)
--- NOTE | 2017-01-31 17:27 | RAD ---
INDICATION: Nonhemorrhagic infarcts COMPARISON: CT brain January 31, 2017 TECHNIQUE: Noncontrast axial source images were acquired from the skull base to the vertex. FINDINGS: Ventricles/sulci: There is cortical atrophy with compensatory dilatation of the CSF spaces. Brain parenchyma: There are again subacute, nonhemorrhagic infarcts in the right caudate and left posterior parietal lobes. There is an old right frontal infarct. There is minor localized mass effect Intracranial hemorrhage:None. Extra-axial spaces: There are no abnormal extra axial fluid collections or evidence of extra-axial mass. Calvarium: There is no calvarial fracture or other calvarial abnormality. Scalp: There is no evidence of scalp or extracalvarial soft tissue abnormality. Paranasal sinuses/mastoid: The paranasal sinuses and mastoid air cells are clear. Other: None. IMPRESSION: Evolving nonhemorrhagic infarcts in multiple vascular territories. No acute hemorrhage.
--- NOTE | 2017-01-31 17:43 | PN ---
Hospitalist Progress Note HOSPITALIST ADDENDUM Called by RN because patient was more agitated than usual. Repeat CT brain was negative for bleed. Suspect this is likely delirium - will add Risperdal PRN for agitation and continue to monitor.
[2017-01-31] MEDS: Senna TAB PO SCH (20:01)
[2017-01-31] MEDS: CMC:Lovastatin (NF) 10 MG TAB PO SCH (20:01)
[2017-02-01] MEDS: Acetaminophen TAB* 325 MG PO PRN (00:10)
[2017-02-01] MEDS: diPHENhydraMINE PO* 25 MG PO PRN (00:10)
--- NOTE | 2017-02-01 05:04 | PN ---
PROGRESS NOTE: DATE OF VISIT: HISTORY OF PRESENT ILLNESS: Jess Osorio is an 81-year-old right-handed woman with a history of dyslipidemia, on statin, hypertension, COPD, who is independent at baseline. She was admitted on 01/26/17 with findings of bilateral ischemic infarcts in the setting of new onset AFib. During this hospitalization, she was diagnosed with bilateral pulmonary embolism, bilateral calf DVT, and yesterday an IVC filter was placed. Her left arm was noted to be enlarged and a superficial thrombus was noted on Doppler ultrasound. Her original presentation was aphasia with weakness on the left hand side and right homonymous hemianopia. Her aphasia was noted by Dr. Emerson to be receptive more than expressive. Each day Dr. Emerson followed her and felt she has had very slow improvement. Today a repeat CT of the brain was performed in preparation for the question of starting anticoagulation. Her CT of the brain showed subacute nonhemorrhagic infarct in the left parietal region as well as the right caudate head region. She had MRA of the brain performed on 01/27, which showed no significant stenosis and carotid Dopplers, which showed 50 to 69% stenosis on the right and less than 50 on the left. Her lipid profile showed a total cholesterol of 111, triglycerides 80, LDL 51, HDL 44. Prior to admission, it was not clear whether she was taking aspirin regularly. PHYSICAL EXAMINATION: On examination today, Mrs. Osorio's most recent temperature was 98. Her blood pressure was 144/74 and her blood pressure has been under good control in review of previous readings. Her saturation was 93, respiratory rate was 26, heart rate was 99. When in the room, her heart rate was above 103 and I appreciated a regular rhythm. Her lungs were clear to auscultation. She had no appreciable rash. She was awake, alert, sitting in a chair next to her son. She had just finished speech therapy, where she has worked on days of the month, days of the week and numbers and with presently good results per son report. She was talkative; however, would be able to string a few words in a row that would make sense, but then full content of the sentence would not make any sense. She was, however, able to follow simple commands. She had no carotid bruit. She had full extraocular movement. At first, there was question of field deficit; however, she was able to count fingers in all willoughby on repetitive testing. Her facial expression was symmetric. There was no dysarthria. Her palate was upgoing. Tongue was midline. Sternocleidomastoid and trapezius were 5/5 in strength. She had no pronator drift. She had difficulty understanding individual muscle strength testing. 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 She was able to move her legs equally. Again individual strength testing was difficult for her. She denied any asymmetries with sharp sensation in her arms and her legs, and her reflexes in her upper extremities were symmetric and 1+ at the knees, absent at the ankles. LABORATORY DATA: Data reviewed includes; direct review of the MRI of the brain from 01/27/17, review of the report of the MRA on 01/27/17. Carotid Dopplers as mentioned above. Direct review of repeat CT of the brain from today. Lipid profile as above. Previous notes by Dr. Emerson and admission notes and most recent hospitalist note. IMPRESSION: Jess Osorio is an 81-year-old right-handed woman with history of hyperlipidemia, hypertension, now with new onset atrial fibrillation with ischemic stroke in the right caudate and left temporoparietal occipital region. This is in the setting of also found to have bilateral calf deep vein thrombosis, bilateral pulmonary embolism with IVC filter placed yesterday. Anticoagulation has been held to date due to ischemic stroke. In the first 48 hours after ischemic stroke, there is very significant potential risk for bleed in the setting of anticoagulation. She has been maintained on aspirin and statin. Of concern is what time to anticoagulate given the burden of pulmonary embolism as well as her deep vein thrombosis. She does have a filter in place now. Given the stability of the stoke, size of the stroke, and being out 5 days, weighed the pros and cons of anticoagulation with hospice team and family, and at this point we have decided to proceed with anticoagulation with non-bolus heparin, eventually proceeding to conversion to Coumadin. There is potential risk of bleeding into brain. If there is any change in mental status change in her examination, heparin will need to be stopped and repeat CT Brain obtained stat. Prior to starting heparin IV question is raised on why the patient is hypercoagulable. I have asked for Dr. Brown to consult Hem/Onc and get their input into labs needed prior to starting the heparin, and hematologic consultation. When heparin is started, I would suggest stopping aspirin. There is no known history of myocardial infarction. She does have moderate left carotid disease. TIME SPENT: Over 40 minutes was spent in direct patient care; over 50% of time the was spent in education regarding findings found to date, potential pros and cons of anticoagulation, risks, benefits. All questions were answered. FOLLOWUP: Followup will be done by Dr. Casey, who will be taking over this evening. [id number]/[facility] #: [id number] NAZANIN
[2017-02-01] MEDS: Tiotropium CAP.INH* CAP.INH/18 MCG (USE ORDER SET !) INH SCH (07:23)
[2017-02-01] MEDS: Sucralfate TAB* 1 GM PO SCH ×3 (08:08→17:12)
--- NOTE | 2017-02-01 08:39 | PN ---
Subjective Date of Service: 02/01/17 Interval History: HOSPITALIST PROGRESS NOTE Patient seen and examined at bedside. She's in better spirits today, more talkative and smiling. Denies headache, N/V , appetite is good. No change on neuro checks. RN reported some confusion last evening, but this appears to be resolved now. Family History: Unchanged from Admission Social History: Unchanged from Admission Past Medical History: Unchanged from Admission Objective Active Medications: Acetaminophen (Tylenol Tab*) 650 mg PO Q6H PRN PRN Reason: MILD PAIN/FEVER Last Admin: 02/01/17 00:10 Dose: 650 mg Amiodarone HCl (Cordarone Tab*) 200 mg PO BID MINGO Last Admin: 01/31/17 20:02 Dose: 200 mg Clonazepam (Klonopin Tab(*)) 0.5 mg PO TID PRN PRN Reason: ANXIETY Last Admin: 01/31/17 20:02 Dose: 0.5 mg Diphenhydramine HCl (Benadryl Po*) 25 mg PO Q6H PRN PRN Reason: ITCHING Last Admin: 02/01/17 00:10 Dose: 25 mg Sodium Chloride (Ns 0.9% 1000 Ml*) 1,000 mls @ 60 mls/hr IV .PER RATE MINGO Last Admin: 01/31/17 20:02 Dose: 60 mls/hr Heparin Sodium/Dextrose (Heparin Drip 25,000 Units(*)) 25,000 units in 500 mls @ 0 mls/hr IV .NO BOLUSES PROTOCOL MINGO; Per Protocol PRN Reason: Protocol Last Admin: 01/31/17 13:02 Dose: 24 mls/hr Lorazepam (Ativan Inj*) 0.5 mg IV PUSH ONCE PRN PRN Reason: AGITATION Last Admin: 01/31/17 17:03 Dose: 0.5 mg Lovastatin (Mevacor (Nf)) 10 mg PO BEDTIME MINGO Last Admin: 01/31/17 20:01 Dose: 10 mg Morphine Sulfate (Morphine Inj (Syringe)*) 1 mg IV Q2H PRN PRN Reason: PAIN Last Admin: 01/31/17 04:31 Dose: 1 mg Pantoprazole Sodium (Protonix Iv*) 40 mg IV DAILY MINGO Last Admin: 01/31/17 08:45 Dose: 40 mg Risperidone (Risperdal) 0.25 mg PO Q8H PRN PRN Reason: AGITATION Senna (Senokot Tab*) 2 tab PO BEDTIME [facility] Last Admin: 01/31/17 20:01 Dose: 2 tab Simethicone (Mylicon*) 80 mg PO Q6H PRN PRN Reason: DISCOMFORT Last Admin: 01/30/17 22:46 Dose: 80 mg Sucralfate (Carafate*) 1 gm PO 0700,1100,1600 [facility] Last Admin: 02/01/17 08:08 Dose: 1 gm Tiotropium [place] (Spiriva Cap.Inh*) 1 cap INH QAM [facility] Last Admin: 02/01/17 07:23 Dose: 1 cap Vital Signs 02/01/17 02/01/17 02/01/17 07:30 07:31 07:45 Temperature 98.3 F Pulse Rate 105 100 94 Respiratory 21 34 31 Rate Blood Pressure 149/66 138/82 (mmHg) O2 Sat by Pulse 90 95 94 Oximetry Oxygen Devices in Use Now: Nasal Cannula - at 5 L Appearance: Elderly lady sitting up in bed in [facility]. Eyes: No Scleral Icterus Ears/Nose/Mouth/Throat: Mucous Membranes Moist Neck: Trachea Midline Respiratory: Symmetrical Chest Expansion and Respiratory Effort, Clear to Auscultation Cardiovascular: - - Normal S1 and S2, irregularly irregular Abdominal: NL Sounds; No Tenderness; No Distention Neurological: - - AAO to self and place, mild left facial weakness, expressive aphasia with paraphrasic errors Lines/Tubes/Other Access: Clean, Dry and Intact Peripheral IV Nutrition: Taking PO's Result Diagrams: 02/01/17 12:40 02/01/17 12:40 Assess/Plan/Problems-Billing Assessment: Mrs. Osorio is an 81 yo F with PMH of COPD, HTN, who presented to ED with aphasia and left sided weakness, found to have Afib and embolic CVAs. 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 - Head MRA was negative. - Carotid dopplers shows 50-69% stenosis on the right, but this episode is cardioembolic secondary to Afib. This can be addressed as outpatient when she's stable. - Echo showed EF 55-60% with negative bubble study. - Patient needs anticoagulation for her Afib, PE/DVT, but initially, risk of bleeding was too high. Neurology input appreciated, d/w family - now that she's >5 days out of her CVA, benefits of anticoagulation surpass risks. Recommendation was to d/c Aspirin, start heparin drip with no boluses and transition to Warfarin. - Doing well, CT brain showed no signs of bleeding - will start Warfarin. - Resume PT, OT, and continue speech therapy. (2) Paroxysmal a-fib Comment: - New diagnosis this admission, likely the cause of her embolic CVAs. - Continue amiodarone PO. - Continue heparin drip with no boluses and add Warfarin. (3) Acute pulmonary embolus Comment: - W/u included V/Q scan showed a large perfusion defect in R lung on and VL dopplers positive for B/L DVT in LEs. - Was not anticoagulated due to extensive CVA, but plan is to start heparin drip with no boluses today and transition to warfarin. - s/p IVC filter 01/30/17. - With CVA, PE, DVT - Hematology evaluation requested and hypercoagulable w/u sent. (4) DELMER (acute kidney injury) Comment: - Suspect prerenal DELMER on top of CKD. - D/c IVF as her PO intake is improving. (5) Rash Comment: - Macular rash suggestive of hives - improving - Benadryl PRN itching and monitor. (6) Dyslipidemia Comment: - LDL 51, continue Lovastatin. (7) HTN (hypertension) Comment: - Controlled off meds. (8) COPD (chronic obstructive pulmonary disease) Comment: - Stable. - Continue Spiriva. (9) DVT prophylaxis Comment: - Heparin drip. (10) Full code status Status and Disposition: Inpatient for CVA, PE, DVT, requiring >48h for stabilization. Will need rehab upon discharge. Transfer to Telemetry floor.
[2017-02-01] MEDS: Amiodarone TAB* 200 MG PO SCH ×2 (09:30→21:40)
[2017-02-01] MEDS: Pantoprazole IV* 40 MG IV SCH (09:31)
[2017-02-01] MEDS: Heparin DRIP 25,000 UNITS(*) 25,000 UNITS/500 ML BAG IV SCH ×2 (12:36→14:44)
[2017-02-01 12:59] LABS: Hematocrit 28 % (35-47); Hemoglobin 9.4 g/dl (12.0-16.0); Mean Corpuscular HGB Conc 34 g/dl (31-36); Mean Corpuscular Hemoglobin 31 pg (27-31); Mean Corpuscular Volume 92 fL (80-97); Mean Platelet Volume 8 um3 (7.4-10.4); Red Blood Count 3.03 10^6/ul (4.0-5.4); Red Cell Distribution Width 13 % (10.5-15); White Blood Count 10.6 10^3/ul (3.5-10.8)
[2017-02-01 13:26] LABS: BUN/Creatinine Ratio 17.9 (8-20); Calcium 8.8 mg/dL (8.6-10.3); EGFR Non-African American 46.7 (>60); Potassium 3.2 mmol/L (3.5-5.0)
[2017-02-01] MEDS ORDERED: Potassium Chloride LIQUID* 20 MEQ PACKET PO ONE (14:45)
--- NOTE | 2017-02-01 14:48 | PN ---
PROGRESS NOTE: DATE OF PROGRESS NOTE: 02/01/17 LOCATION: Current location is ICU, bed 2. Subjective: Ms. Osorio is an 81-year-old female who came to the hospital approximately 5 days ago on 01/26/17. At that time, she was found to have likely cardioembolic stroke with the right caudate, left temporal lobe and inferior parietal lobes as well as the occipital lobe affected. She was found to have new onset AFib at that time and was also diagnosed with bilateral calf DVTs as well as bilateral pulmonary emboli. She was also found to have superficial thrombus in the left arm. On initial presentation, she had some aphasia and weakness on the left side, as well as a right homonymous hemianopia. It was felt at the time her aphasia was more receptive than expressive. She was treated conservatively with aspirin, statin, but the size of her stroke and acuteness, full anticoagulation was held yesterday, 5 days from the stroke. She was stable. CT scan was repeated and was stable and was decided to start her on heparin bridge to Coumadin given the risk of her PEs. In the interim, an IVC filter was placed. Overnight at around 5 p.m., she became more confused, a repeat CT scan was done which showed evolving infarcts, but no hemorrhagic conversion. This morning, she is talkative. I spoke with her primary care physician, who feels that she is back to her baseline. There have been no other issues overnight. The remainder of her stroke workup included an MRI of the brain, which showed no significant stenosis, carotid Dopplers, which showed 50% to 69% stenosis on the right and less than 50% on the left. Her LDL cholesterol was 51. I did review the MRI of the brain from 01/27/17 including the images and reports of her other studies including her CT scan yesterday. Physical Exam this morning vital signs: She has a blood pressure of 142/77, heart rate of 91 and respiratory rate of 23 , O2 sat of 95, blood pressures have ranged in the 130s to 140s over 60s to a high of 96. In general, she is a well- nourished, well-developed female. She is lying in her hospital bed awake. She is pleasant, well dressed, well groomed. HEENT: She is normocephalic, atraumatic. Her sclerae are anicteric. Her mucous membranes are moist. Neck is supple. There is no carotid bruits present. C hest is clear to auscultation bilaterally. Cardiovascular: Regular rate and rhythm. No abnormal rhythm this morning. There were no murmurs appreciated. Her lungs were clear bilaterally. H er skin was warm and dry without rashes or lesions. Neurologic Exam: This morning she was awake, alert. She was talkative although at times was not making sense and having difficulty putting full sentences together. I would say that at times she was fluent. Cranial nerves, her pupils were equally round and reactive to light. Her extraocular muscles are intact. Her visual willoughby were difficult to assess, but she blinks to confrontation. I cannot appreciate hemianopsia at this point , although again it is a very difficult examination. Her face is symmetric. Tongue is midline. Palate is symmetric. Sternocleidomastoid and trapezius were full. On motor exam, she has difficulty following my commands, but she does squeeze my hands tightly and push against me. Her legs, she moves spontaneously with some effort and resistance, again difficult examination. Her tongue was normal. DTRs were 2+ and symmetric throughout. She had upgoing on the left and equivocal on the right. Sensation again difficult examination, but she withdrew to pain throughout. There is no focal sensory findings that were obvious on examination. I could not get her to follow commands for [id number], but I saw no tremor. There was no pronator drift appreciated as well. Studies: Overnight CT scan as noted above. Her PTT this morning is 87.5. White count yesterday was up to 12.6 with mild left shift. Urine showed 2+ leukocyte esterase. PLAN: Ms. Osorio is an 81-year-old female who presented to the hospital with embolic strokes, found to have PEs, and DVTs as well. IVC filter was placed. She was initially treated conservatively with aspirin. Yesterday it was decided that given the risk associated with her PE and DVTs, she should be anticoagulated. She was started on a heparin nonbolused drip, with a bridging to Coumadin today. Overnight, she became slightly confused at around [address] scan was done, which showed no changes and she was given some Risperdal with improvement. This morning, she appears to be at her baseline with some continued speech difficulties. Again appears to be more receptive and expressive, although she does have difficulty at times forming full sentences. I spoke with her primary care physician today. The plan is to transfer her to the floor with frequent neuro checks. She will transition to Coumadin today from a stroke standpoint. We will continue her statin. Continue high blood pressure control. She is a nondiabetic. Physical therapy and speech therapy are working with her. Neurologically, she is stable and slowly improving. I will continue to follow her closely. [id number]/[facility] #: [id number] NAZANIN
--- NOTE | 2017-02-01 15:46 | CONS ---
CONSULTATION REPORT: DATE OF CONSULT: 01/31/17 REFERRING PHYSICIAN: Dr. Medrano CARDIOLOGY: Dr. Walker. PRIMARY CARE PHYSICIAN: Dr. Box. REASON FOR CONSULTATION: Multiple thromboses. HISTORY OF PRESENT ILLNESS: An 81-year-old female who was admitted on 01/26/17 with new onset atrial fibrillation and a CVA. She had 2 areas of ischemia in the distribution of the right middle cerebral artery. She presented with garbled speech noted by her family. Our discussion was with the patient speaking gibberish. After presentation to the emergency room, she had a brain CT on 01/26/17 followed by a brain MRI on 01/27/17. Consistent with an embolic subacute nonhemorrhagic infarct in caudate and left temporal lobe, inferior parietal lobe and occipital lobe. She is also noted to be hypoxic and tachycardic. This triggered V/Q scan being done on the , which showed multiple ventilation/perfusion mismatches, high probability scan with bilateral defects. She had a venous Doppler on the as well that showed thrombosis in the calves bilaterally and then a upper extremity Doppler because of pain that showed a superficial thrombosis and cephalic vein in the left upper extremity. The combination of multiple thromboses diagnosed simultaneously triggered an IVC filter placement, which was done successfully. After extensive discussion with Neurology at day #5 post CVA, she was started on IV heparin, which she tolerated overnight. Hematology consultation for a question of hypercoagulable state. She had abdominal and pelvic CT on 01/27/17 that did not show any pancreatic lesions, normal sized spleen, no lymphadenopathy, normal appearing liver. It was done for ischemic bowel and was negative for that as well. She has a CBC with mildly elevated white count with left shift, hemoglobin 11.1, MCV 95 and platelet count 281, counts have been stable. She has mild renal insufficiency, creatinine 1.25, otherwise unremarkable chemistries with a globulin of 2.2. She had a B12 that was normal in 2015. INR and PTT that were normal prior to starting anticoagulation. PAST MEDICAL HISTORY: 1. COPD. 2. Hypertension. MEDICATIONS: 1. She is on heparin drip. 2. Amiodarone 200 b.i.d. 3. Klonopin 0.5 t.i.d. 4. Benadryl. 5. Ativan 0.5 IV push p.r.n. 6. Mevacor 10 mg daily. 7. Morphine sulfate 1 g q. 2 p.r.n. 8. Protonix 40 IV daily. 9. Risperdal 0.25 q. 8. 10. Senna 2 at bedtime. 11. Simethicone. 12. Carafate. 13. Spiriva inhaler. ALLERGIES: None, though she did have a rash after the IVC filter placement. FAMILY HISTORY: Daughter not available when I saw her and patient is not coherent, so it is from the chart. Apparently patient's mother lived to and of a CVA. SOCIAL HISTORY: Former smoker, quit 8 to 10 years ago and drinks occasionally. Limited patient's history. REVIEW OF SYSTEMS: Unobtainable because of aphasia. PHYSICAL EXAM: BP 143/82, temperature 98.3 and she has a heart rate in the 90s that appears stable, respiratory rate in the mid 20s on my exam, in no distress , O2 saturation 97% on nasal cannula. HEENT: Oral mucosa moist. No lesions. Pupil equal, round, reactive to light. Neurological: She has a few coherent words and does seem to be answering questions appropriately, but full sentences are nonsensical. I did not do full neurologic exam. Lungs are clear to auscultation on my exam, no wheezes or crackles. Heart: Irregular, 90s. S1, S2. No gallop. Abdomen: Nontender, nondistended. No hepatosplenomegaly. Skin : No excessive bruising. Chest: Slight oozing around the IV site. Lymph Nodes : No axillary or inguinal lymphadenopathy. No cervical or supraclavicular lymphadenopathy. Extremities: Warmth to the touch. DIAGNOSTIC STUDIES/LAB DATA: Labs as noted above. Imaging was all reviewed. ASSESSMENT AND PLAN: An 81-year-old female who presented with new a-fib, embolic stroke. She was also hypoxic and full evaluation showed multiple pulmonary emboli, size indeterminant as well as bilateral calf thrombosis, superficial thrombosis in the left upper extremity. It appears to be hypercoagulable state. Differential diagnosis is broad. Given her age, an inherited thrombophilia is unlikely, but acquired thrombophilia is quite possible. She could have a new onset lupus and antiphospholipid antibody, underlying malignancy either hematologic or solid tumor. She came in prerenal, venous stasis and dehydration with or without mild inherited thombophilia may account for thrombosis. 1. She had a lupus anticoagulant as well as protein CS and ATIII sent yesterday. The lupus anticoagulant is most important test. Protein CS and ATIII can all be depressed in the setting of acute thrombosis and I do not suspect an inherited thrombophilia. We will send an anticardiolipin antibody panel today and that could be done on heparin. We will also send prothrombin gene mutation and Leiden factor V as heterozygosity for either one may be contributing to number of acute thrombosis. 2. I am concerned about an underlying malignancy. However, she had a CT scan of the abdomen and pelvis with no evidence of pancreatic cancer and there are no indications of marrow dysfunction on her CBC. We can check iron studies and send stool guaiac while she is in the hospital, but next steps would be screening mammogram and colonoscopy. Breast exam today was negative. 3. Agree with heparin and conversion to Coumadin. Will be on lifelong anticoagulation unless otherwise medically contraindicated. 4. We will continue to follow during hospitalization. [id number]/[facility] #: [id number] NAZANIN
[2017-02-01] MEDS ORDERED: Warfarin TAB(*) 5 MG PO ONE (17:00)
[2017-02-01] MEDS: Senna TAB PO SCH (21:40)
[2017-02-01] MEDS: CMC:Lovastatin (NF) 10 MG TAB PO SCH (21:40)
[2017-02-01] MEDS: Morphine INJ* 4 MG/ML 1 ML CARPUJECT IV PRN (21:40)
[2017-02-02] MEDS: LORazepam INJ* 2 MG/ML 1 ML VIAL IV PUSH PRN (02:22)
[2017-02-02 07:32] LABS: Hematocrit 27 % (35-47); Hemoglobin 9.3 g/dl (12.0-16.0); Mean Corpuscular HGB Conc 35 g/dl (31-36); Mean Corpuscular Hemoglobin 32 pg (27-31); Mean Corpuscular Volume 92 fL (80-97); Mean Platelet Volume 8 um3 (7.4-10.4); Red Blood Count 2.91 10^6/ul (4.0-5.4); Red Cell Distribution Width 13 % (10.5-15)
[2017-02-02 07:40] LABS: BUN/Creatinine Ratio 15.3 (8-20); Calcium 8.9 mg/dL (8.6-10.3); EGFR African American 56.5 (>60); Potassium 3.4 mmol/L (3.5-5.0)
[2017-02-02] MEDS: Tiotropium CAP.INH* CAP.INH/18 MCG (USE ORDER SET !) INH SCH (08:08)
[2017-02-02] MEDS: Amiodarone TAB* 200 MG PO SCH ×2 (08:43→20:22)
[2017-02-02] MEDS: Sucralfate TAB* 1 GM PO SCH ×3 (08:43→17:31)
[2017-02-02] MEDS: KCL 10 MEQ/50 ML IVPREMIX* 10 MEQ/50 ML BAG IV SCH ×3 (08:44→11:14)
[2017-02-02] MEDS: Pantoprazole IV* 40 MG IV SCH (08:44)
[2017-02-02] MEDS: Acetaminophen TAB* 325 MG PO PRN (08:44)
[2017-02-02] MEDS: clonazePAM TAB(*) 0.5 MG PO PRN (08:44)
[2017-02-02] MEDS ORDERED: Potassium Chloride LIQUID* 20 MEQ PACKET PO ONE (09:00)
--- NOTE | 2017-02-02 15:05 | PN ---
Subjective Date of Service: 02/02/17 Interval History: HOSPITALIST PROGRESS NOTE Patient seen and examined at bedside. No new complaints today. Family History: Unchanged from Admission Social History: Unchanged from Admission Past Medical History: Unchanged from Admission Objective Active Medications: Acetaminophen (Tylenol Tab*) 650 mg PO Q6H PRN PRN Reason: MILD PAIN/FEVER Last Admin: 02/02/17 08:44 Dose: 650 mg Amiodarone HCl (Cordarone Tab*) 200 mg PO BID [facility] Last Admin: 02/02/17 08:43 Dose: 200 mg Diphenhydramine HCl (Benadryl Po*) 25 mg PO Q6H PRN PRN Reason: ITCHING Last Admin: 02/01/17 00:10 Dose: 25 mg Heparin Sodium/Dextrose (Heparin Drip 25,000 Units(*)) 25,000 units in 500 mls @ 0 mls/hr IV .NO BOLUSES PROTOCOL MINGO; Per Protocol PRN Reason: Protocol Last Admin: 02/01/17 14:44 Dose: 17 mls/hr Lorazepam (Ativan Inj*) 0.5 mg IV PUSH ONCE PRN PRN Reason: AGITATION Last Admin: 02/02/17 02:22 Dose: 0.5 mg Lovastatin (Mevacor (Nf)) 10 mg PO BEDTIME [facility] Last Admin: 02/01/17 21:40 Dose: 10 mg Morphine Sulfate (Morphine Inj (Syringe)*) 1 mg IV Q2H PRN PRN Reason: PAIN Last Admin: 02/01/17 21:40 Dose: 1 mg Pantoprazole Sodium (Protonix Iv*) 40 mg IV DAILY [facility] Last Admin: 02/02/17 08:44 Dose: 40 mg Risperidone (Risperdal) 0.25 mg PO Q8H PRN PRN Reason: AGITATION Senna (Senokot Tab*) 2 tab PO BEDTIME [facility] Last Admin: 02/01/17 21:40 Dose: 2 tab Simethicone (Mylicon*) 80 mg PO Q6H PRN PRN Reason: DISCOMFORT Last Admin: 01/30/17 22:46 Dose: 80 mg Sucralfate (Carafate*) 1 gm PO 0700,1100,1600 [facility] Last Admin: 02/02/17 11:09 Dose: 1 gm Tiotropium [place] (Spiriva Cap.Inh*) 1 cap INH QAM [facility] Last Admin: 02/02/17 08:08 Dose: 1 cap Vital Signs 02/02/17 02/02/17 02/02/17 03:22 04:16 08:06 Temperature 97.9 F 98.3 F Pulse Rate 85 80 Respiratory 20 16 20 Rate Blood Pressure 127/67 128/54 (mmHg) O2 Sat by Pulse 98 98 Oximetry Oxygen Devices in Use Now: None Appearance: Elderly lady lying in bed in NAD. Eyes: No Scleral Icterus Ears/Nose/Mouth/Throat: Mucous Membranes Moist Neck: Trachea Midline Respiratory: Symmetrical Chest Expansion and Respiratory Effort, Clear to Auscultation Cardiovascular: - - Normal S1 and S2, irregularly irregular Abdominal: NL Sounds; No Tenderness; No Distention Neurological: - - Alert and awake, expressive aphasia Lines/Tubes/Other Access: Clean, Dry and Intact Peripheral IV Nutrition: Taking PO's Result Diagrams: 02/02/17 06:19 02/02/17 06:19 Assess/Plan/Problems-Billing Assessment: Mrs. Osorio is an 81 yo F with PMH of COPD, HTN, who presented to ED with aphasia and left sided weakness, found to have Afib and embolic CVAs. 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 - Head MRA was negative. - Carotid dopplers shows 50-69% stenosis on the right, but this episode is cardioembolic secondary to Afib. This can be addressed as outpatient when she's stable. - Echo showed EF 55-60% with negative bubble study. - Patient needs anticoagulation for her Afib, PE/DVT, but initially, risk of bleeding was too high. Neurology input appreciated, d/w family - now that she's >5 days out of her CVA, benefits of anticoagulation surpass risks. Recommendation was to d/c Aspirin, start heparin drip with no boluses and transition to Warfarin. - Doing well, CT brain showed no signs of bleeding - will start Warfarin. - Continue PT, OT, and speech therapy. (2) Paroxysmal a-fib Comment: - New diagnosis this admission, likely the cause of her embolic CVAs. - Continue amiodarone PO 200mg BID for 7 days, then down to 200mg daily. - Continue heparin drip with no boluses and Warfarin. (3) Acute pulmonary embolus Comment: - W/u included V/Q scan showed a large perfusion defect in R lung on and VL dopplers positive for B/L DVT in LEs. - Was not anticoagulated due to extensive CVA, but plan is to start heparin drip with no boluses today and transition to warfarin. - s/p IVC filter 01/30/17. - With CVA, PE, DVT - Hematology evaluation appreciated and hypercoagulable w/u sent. (4) Hypokalemia Comment: - Replete. (5) DELMER (acute kidney injury) Comment: - Suspect prerenal DELMER on top of CKD. - D/c IVF as her PO intake is improving. (6) Rash Comment: - Macular rash suggestive of hives - improving - Benadryl PRN itching and monitor. (7) Dyslipidemia Comment: - LDL 51, continue Lovastatin. (8) HTN (hypertension) Comment: - Controlled off meds. (9) COPD (chronic obstructive pulmonary disease) Comment: - Stable. - Continue Spiriva. (10) DVT prophylaxis Comment: - Heparin drip. (11) Full code status Status and Disposition: Inpatient for CVA, PE, DVT, requiring >48h for stabilization. Will need rehab upon discharge.
[2017-02-02] MEDS ORDERED: Warfarin TAB(*) 5 MG PO ONE (17:00)
[2017-02-02] MEDS: Morphine INJ* 4 MG/ML 1 ML CARPUJECT IV PRN ×2 (17:32→20:22)
--- NOTE | 2017-02-02 18:17 | PN ---
PROGRESS NOTE: DATE OF SERVICE: 02/02/17 LOCATION: She is currently in room 439, bed 1. SUBJECTIVE: No problems overnight. She is doing well. The nurse states that she had no reported issues. She has had no alteration of her mental status. Continues to have difficulty expressing herself, but is following commands better. It is difficult to obtain a history from her, she is unable to express herself, but she shook her head no when I asked if she was in pain or if she had any shortness of breath. She is currently on transition therapy to Coumadin. I did review the Hematology/Oncology note. They are currently doing a hypercoagulable workup, but agree with full strength anticoagulation at this point. OBJECTIVE: Vital Signs: Temperature of 98.3. She has been afebrile except for a temp of 99.4 at 11:27 yesterday, pulse rate has been in the 80s to 90s, blood pressure 134/60 to 128/54 in the last 12 hours, respiratory rate has been 16 to 27 for a brief time, O2 sats yesterday morning in the mid 90s and this morning high 90s. In general, she is a thin, well-developed female. She is sitting in her hospital bed. She is pleasant, well dressed, well groomed. HEENT : Normocephalic, atraumatic. Sclerae anicteric. Mucous membranes are moist. Oropharynx is clear. Neck: Supple. No carotid bruits appreciated. Chest: She has some bilateral wheezing in all lung [place]. No coarse breath sounds appreciated. Heart: Currently, regular rate and rhythm. No murmurs appreciated. Abdomen: Nontender. Extremities: No clubbing, cyanosis, or edema. Neurologic: She is awake. She is alert. She is oriented to person as far as I can tell. Her examination is difficult because of an expressive aphasia. Her speech is compromised. She is able to say a few words, but not able to string a sentence together. Currently nonfluent. She is following commands consistently. Cranial nerves: Pupils are equally round and reactive to light. Extraocular muscles are intact. Visual [place] appear to be compromised on the right side. She did not blink to threat from the right, but again this is a very difficult examination and I cannot fully quantify the visual loss at this time. Face appears symmetric. Extraocular muscles appear intact. Tongue is midline. Palate is symmetric. Motor Exam: She spontaneously moves all extremities antigravity with good effort 4+/5 in the upper and lower extremities. No drift is apparent. Her tone is normal. Sensation: Difficult exam, but appears to be intact to light touch bilaterally in the upper and lower extremities as well as pain bilaterally in the upper and lower extremities , she did withdraw x4. DTRs 1+ in the upper extremities bilaterally, 1+ at the patella, absent at the ankles bilaterally. Equivocal Babinski. Rydadw-mg-bqpr was difficult, but rapid alternating movements are intact. There is no tremor. Gait was not tested. MEDICATIONS: 1. Tylenol 650 mg q.6 hours p.r.n. 2. Amiodarone 200 mg p.o. b.i.d. 3. Klonopin 0.5 mg t.i.d. p.r.n. 4. Benadryl 25 mg p.o. q.6 hours p.r.n. 5. Heparin drip. 6. Lorazepam 0.5 mg one for agitation. 7. Lovastatin 10 mg p.o. at bedtime. 8. Morphine injection 1 mg q.12 hours p.r.n. 9. Protonix 40 mg IV daily. 10. Potassium chloride replacement. 11. Risperidone 0.25 mg p.o. q.8 hours p.r.n. agitation, last dose was on 01/31. 12. Senokot. 13. Mylicon. 14. Carafate. DIAGNOSTIC STUDIES/LAB DATA: Labs today: White count of 8.0, hemoglobin of 9.3 , hematocrit of 27. PTT of 75, INR of 1.0. Chemistry this morning, basic metabolic panel with a potassium of 3.4, creatinine of 1.18, glucose of 184, calcium of 8.9. Vitamin B12 of 953. TSH 4.48. There have been multiple labs drawn for her hypercoagulable panel, but those are not back yet. PLAN: Ms. Osorio is an 81-year-old female, who presented to the hospital with stroke, embolic in nature, bilateral with left and right MCA distributions; also atrial fibrillation, found to have pulmonary emboli. Initially had an IVC filter placed, but after several days, it was decided to start her on heparin drip for her pulmonary embolisms and transition to Coumadin. It was felt that the risk of treating with Coumadin and bleeding from her strokes was lower than the risks associated with her pulmonary embolisms. So far, she has tolerated that well. She did have an episode of confusion yesterday, but CT scan was negative for any acute bleeding. At this point, from a stroke standpoint, she is doing well and seems to be stable. As a matter of fact, she appears to be slightly improved this morning from a speech standpoint. 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 At this point, I would continue blood pressure control and continue her transition to Coumadin. Continue lipid control. Hematology is following and making recommendations regarding her anticoagulation, but at this point, she will be on full strength anticoagulation and defer to them for any changes or additional options. From a pulmonary embolism standpoint, she appears to be stable. She does have an IVC filter and is being anticoagulated. I will continue to follow her and make further recommendations as necessary. [id number]/[facility] #: [id number] [facility]ENTERMurray
[2017-02-02] MEDS: Heparin DRIP 25,000 UNITS(*) 25,000 UNITS/500 ML BAG IV SCH (19:00)
[2017-02-02] MEDS: CMC:Lovastatin (NF) 10 MG TAB PO SCH (20:21)
[2017-02-02] MEDS: diPHENhydraMINE PO* 25 MG PO PRN (20:21)
[2017-02-02] MEDS: Senna TAB PO SCH (20:22)
[2017-02-02] MEDS ORDERED: Morphine INJ* 2 MG/ML 1 ML SYRINGE (TWO MG - NEW SYRINGE VERSION) IV PRN (20:58)
[2017-02-03 03:53] LABS: Anion Gap 4 mmol/L (2-11); BUN/Creatinine Ratio 12.9 (8-20); Blood Urea Nitrogen 15 mg/dL (6-24); CO2 Carbon Dioxide 24 mmol/L (22-32); Calcium 9.2 mg/dL (8.6-10.3); Chloride 107 mmol/L (101-111); EGFR African American 57.7 (>60); EGFR Non-African American 44.8 (>60); Glucose 109 mg/dL (70-100); Potassium 4.2 mmol/L (3.5-5.0); Sodium 135 mmol/L (133-145)
[2017-02-03 03:54] LABS: Iron 29 ug/dL (50-212); Total Iron Binding Capacity 263 mcg/dL (250-450); Transferrin 188 mg/dL (203-362)
[2017-02-03 04:16] LABS: Ferritin 101.5 ng/mL (11-307)
[2017-02-03 04:20] LABS: Folate > 20.00 ng/mL (>3.99)
[2017-02-03 04:21] LABS: Vitamin B12 798 pg/mL (180-914)
[2017-02-03] MEDS: Acetaminophen TAB* 325 MG PO PRN (06:18)
[2017-02-03] MEDS ORDERED: Al Hydrox/Mg Hydrox/Simet LIQ* 30 ML UDC PO PRN (08:38)
[2017-02-03] MEDS ORDERED: PROCHLORPERAZINE INJ 5 MG/ML 2 ML VIAL IV PRN (08:39)
[2017-02-03] MEDS: Tiotropium CAP.INH* CAP.INH/18 MCG (USE ORDER SET !) INH SCH (08:48)
--- NOTE | 2017-02-03 10:23 | PN ---
Subjective - Subjective Active Problems: Active Problems DELMER (acute kidney injury) (Acute) N17.9 - Suspect prerenal DELMER on top of CKD. - D/c IVF as her PO intake is improving. Abdominal pain (Acute) R10.9 due to gas? abd soft and mildy tender. Had a regular BM on 01/28/17 cont IV Protonix for now CT abd/plevis on 01/27/17 unremarkable Abnormal urinalysis (Acute) R82.90 U. cx neg- Ceftriaxone stopped on 01/28/17 Acute pulmonary embolus (Acute) I26.99 - W/u included V/Q scan showed a large perfusion defect in R lung on 01/29/17 and VL dopplers positive for B/L DVT in LEs. - Was not anticoagulated due to extensive CVA, but plan is to start heparin drip with no boluses today and transition to warfarin. - s/p IVC filter 01/30/17. - With CVA, PE, DVT - Hematology evaluation appreciated and hypercoagulable w/u sent. COPD (chronic obstructive pulmonary disease) (Acute) J44.9 - Stable. - Continue Spiriva. 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 - Head MRA was negative. - Carotid dopplers shows 50-69% stenosis on the right, but this episode is cardioembolic secondary to Afib. This can be addressed as outpatient when she's stable. - Echo showed EF 55-60% with negative bubble study. - Patient needs anticoagulation for her Afib, PE/DVT, but initially, risk of bleeding was too high. Neurology input appreciated, d/w family - now that she's >5 days out of her CVA, benefits of anticoagulation surpass risks. Recommendation was to d/c Aspirin, start heparin drip with no boluses and transition to Warfarin. - Doing well, CT brain showed no signs of bleeding - will start Warfarin. - Continue PT, OT, and speech therapy. DVT prophylaxis (Acute) [id number] - Heparin drip. Dyslipidemia (Acute) E78.5 - LDL 51, continue Lovastatin. Full code status (Acute) Z78.9 HTN (hypertension) (Acute) I10 - Controlled off meds. Hypokalemia (Acute) E87.6 - Replete. Paroxysmal a-fib (Acute) I48.0 - New diagnosis this admission, likely the cause of her embolic CVAs. - Continue amiodarone PO 200mg BID for 7 days, then down to 200mg daily. - Continue heparin drip with no boluses and Warfarin. Rash (Acute) R21 - Macular rash suggestive of hives - improving - Benadryl PRN itching and monitor. Current Medications: Current Medications Acetaminophen (Tylenol Tab*) 650 mg PO Q6H PRN PRN Reason: MILD PAIN/FEVER Last Admin: 02/03/17 06:18 Dose: 650 mg Al Hydrox/Mg Hydrox/Simethicone (Maalox Plus*) 30 ml PO Q6H PRN PRN Reason: INDIGESTION Amiodarone HCl (Cordarone Tab*) 200 mg PO BID MINGO Last Admin: 02/02/17 20:22 Dose: 200 mg Diphenhydramine HCl (Benadryl Po*) 25 mg PO Q6H PRN PRN Reason: ITCHING Last Admin: 02/02/17 20:21 Dose: 25 mg Heparin Sodium/Dextrose (Heparin Drip 25,000 Units(*)) 25,000 units in 500 mls @ 0 mls/hr IV .NO BOLUSES PROTOCOL MINGO; Per Protocol PRN Reason: Protocol Last Admin: 02/02/17 19:00 Dose: 14 mls/hr Lorazepam (Ativan Tab(*)) 0.5 mg PO Q6H PRN PRN Reason: ANXIETY Lovastatin (Mevacor (Nf)) 10 mg PO BEDTIME MINGO Last Admin: 02/02/17 20:21 Dose: 10 mg Morphine Sulfate (Morphine Inj (Syringe)*) 1 mg IV Q2H PRN PRN Reason: PAIN Last Admin: 02/03/17 00:37 Dose: 1 mg Omeprazole (Prilosec Cap*) 40 mg PO DAILY@0600 [facility] Prochlorperazine Edisylate (Compazine Inj*) 5 mg IV Q6H PRN PRN Reason: NAUSEA/VOMITING Risperidone (Risperdal) 0.25 mg PO Q8H PRN PRN Reason: AGITATION Senna (Senokot Tab*) 2 tab PO BEDTIME MINGO Last Admin: 02/02/17 20:22 Dose: 2 tab Simethicone (Mylicon*) 80 mg PO Q6H PRN PRN Reason: DISCOMFORT Last Admin: 01/30/17 22:46 Dose: 80 mg Sucralfate (Carafate*) 1 gm PO 0700,1100,1600 [facility] Last Admin: 02/02/17 17:31 Dose: Not Given Tiotropium [place] (Spiriva Cap.Inh*) 1 cap INH QAM [facility] Last Admin: 02/03/17 08:48 Dose: 1 cap Home Medications: Home Medications Medication Instructions Recorded Confirmed Type Diltiazem HCl [Dilt-Xr] 180 mg PO BID 08/11/13 01/26/17 History Losartan Potassium 50 mg PO QAM 08/11/13 01/26/17 History Lovastatin 10 mg PO BEDTIME 08/11/13 01/26/17 History Tiotropium [place] Monohydrate 1 inh PO QAM 08/11/13 01/26/17 History [Spiriva Handihaler] clonazePAM TAB(*) [Klonopin TAB(*)] 0.5 mg PO TID PRN 04/03/15 01/26/17 History Atenolol [Atenolol] 12.5 mg PO DAILY 01/26/17 01/26/17 History Ciprofloxacin HCl [Ciprofloxacin 500 mg PO BID 01/26/17 01/26/17 History HCl] Mirtazapine [Mirtazapine] 15 mg PO BEDTIME 01/26/17 01/26/17 History Allergies: Allergies Allergy/AdvReac Type Severity Reaction Status Date / Time Codeine Allergy KNOCKS HER Verified 04/03/15 10:26 OUT Sulfa Antibiotics Allergy Unknown Verified 04/03/15 10:26 Reaction Details ENVIRONMENTAL/SEASONAL Allergy WATERY Uncoded 04/03/15 10:26 EYES, RUNNY NOSE Objective - Vital Signs Vital Signs: Vital Signs 02/02/17 02/02/17 02/02/17 10:44 11:11 15:29 Temperature 98.3 F Pulse Rate 81 87 Respiratory 18 20 24 Rate Blood Pressure 130/45 129/64 (mmHg) O2 Sat by Pulse 97 98 Oximetry 02/02/17 02/02/17 02/02/17 16:00 17:32 18:32 Temperature Pulse Rate Respiratory 18 18 Rate Blood Pressure (mmHg) O2 Sat by Pulse 98 Oximetry 02/02/17 02/02/17 02/02/17 19:39 20:00 20:21 Temperature 97.7 F Pulse Rate 90 Respiratory 16 22 24 Rate Blood Pressure 146/56 (mmHg) O2 Sat by Pulse 95 Oximetry 02/02/17 02/02/17 02/02/17 20:22 21:22 22:21 Temperature Pulse Rate Respiratory 24 19 19 Rate Blood Pressure (mmHg) O2 Sat by Pulse Oximetry 02/02/17 02/03/17 02/03/17 23:29 00:00 00:37 Temperature 98.5 F Pulse Rate 81 Respiratory 16 24 Rate Blood Pressure 137/68 (mmHg) O2 Sat by Pulse 97 97 Oximetry 02/03/17 02/03/17 02/03/17 01:37 03:20 07:41 Temperature 98.0 F 97.7 F Pulse Rate 92 85 Respiratory 15 16 24 Rate Blood Pressure 145/70 136/65 (mmHg) O2 Sat by Pulse 94 97 Oximetry 02/03/17 08:51 Temperature Pulse Rate 91 Respiratory 16 Rate Blood Pressure (mmHg) O2 Sat by Pulse 96 Oximetry - Intake and Output Intake and Output: Intake & Output 02/01/17 02/02/17 02/03/17 02/04/17 06:59 06:59 06:59 06:59 Intake Total 2478.2 957.3 778 50 Output Total 625 550 900 Balance 1853.2 407.3 -122 50 Weight 143 lb 4.807 oz 140 lb 1.6 oz 140 lb 3.2 oz Intake: IV Fluids 1365 371 342 10 MEQ KCL 158 NS (0.9%) 1365 371 184 Medicated IV 205.1 336 Heparin 205.1 336 Heparin 178.1 136.3 Oral 730 450 100 50 Output: [place] 625 550 900 Other: Date of Last Bowel 02/01/17 Movement # Bowel Movements 1 0 0 Estimated Stool Amount Large Medium ADLs: Meal Record Start: 01/26/17 09: 40 Freq: DAILY@0900,1400,1800 Status: Complete Document 01/26/17 14:00 [id number] (Rec: 01/26/17 14:29 [id number] TELE-C01) Document 01/26/17 18:00 [id number] (Rec: 01/26/17 22:18 [id number] TELE-C06) Document 01/27/17 09:00 TMT0626 (Rec: 01/27/17 10:02 TWL6386 TELE-C09) Document 01/27/17 14:00 GHB0615 (Rec: 01/27/17 14:20 [id number] TELE-C09) ADLs: Meal Record Start: 01/27/17 20: 20 Freq: 09,13,18 Status: Inactive Created 01/27/17 20:20 [id number] (Rec: 01/27/17 20:20 [id number] ICU-M01) Document 01/27/17 20:37 [id number] (Rec: 01/27/17 20:37 [id number] TELE-C06) Document 01/28/17 13:44 [id number] (Rec: 01/28/17 13:45 [id number] ICU-C16) Document 01/28/17 14:06 CGA2712 (Rec: 01/28/17 14:06 SRQ5092 ICU-M01) Document 01/29/17 09:30 [id number] (Rec: 01/29/17 13:32 BJS2089 ICU-C16) Document 01/29/17 14:00 ZOY6388 (Rec: 01/29/17 14:21 [id number] ICU-C16) Document 01/29/17 18:00 [id number] (Rec: 01/29/17 19:50 PQN5196 ICU-C16) Document 01/30/17 09:00 IYU4962 (Rec: 01/30/17 09:00 SLB1915 ICU-C16) Document 01/30/17 13:00 [id number] (Rec: 01/30/17 15:41 ITH5122 ICU-C16) Document 01/30/17 18:00 WUB7032 (Rec: 01/30/17 22:13 SQU9395 ICU-C16) Document 01/31/17 09:00 EHU6090 (Rec: 01/31/17 10:39 CUB6699 ICU-C10) Document 01/31/17 13:00 NZY1337 (Rec: 01/31/17 14:03 YPT4444 ICU-C10) Document 02/01/17 09:00 EAO6373 (Rec: 02/01/17 09:36 BXA2210 ICU-C16) ADLs: Meal Record Start: 02/01/17 13: 41 Freq: DAILY@0900,1400,1800 Status: Active Created 02/01/17 13:41 [id number] (Rec: 02/01/17 13:41 WAL1958 TELE-C06) Document 02/01/17 14:06 [id number] (Rec: 02/01/17 14:06 JBU5143 TELE-C03) Document 02/01/17 17:43 YQO9279 (Rec: 02/01/17 17:43 ETN4358 TELE-C01) Document 02/02/17 09:01 ZFD9144 (Rec: 02/02/17 09:01 IRX8616 TELE-C03) Document 02/02/17 13:01 QDZ7757 (Rec: 02/02/17 13:01 VXG1303 TELE-C01) Document 02/02/17 18:00 ZLO6359 (Rec: 02/02/17 20:39 PTU8601 TELE-C01) Document 02/03/17 09:46 EJY4441 (Rec: 02/03/17 09:47 JDZ1450 TELE-M07) Intake and Output Start: 01/26/17 09: 40 Freq: DAILY@0600,1400,2200 Status: Complete Document 01/26/17 14:00 [id number] (Rec: 01/26/17 14:29 DFU7185 TELE-C01) Document 01/26/17 22:00 FYW8740 (Rec: 01/26/17 22:19 KWX6577 TELE-C06) Document 01/27/17 05:58 FZA2367 (Rec: 01/27/17 05:58 MML1113 TELE-C34) Document 01/27/17 14:00 WQJ0187 (Rec: 01/27/17 14:20 KKA7470 TELE-C09) Intake and Output Start: 01/27/17 20: 20 Freq: 06,14,22 Status: Inactive Created 01/27/17 20:20 [id number] (Rec: 01/27/17 20:20 PKV1346 ICU-M01) Document 01/28/17 17:42 GPB3097 (Rec: 01/28/17 17:42 RLC7202 ICU-M01) Document 01/29/17 06:00 SWS1984 (Rec: 01/29/17 06:41 KYA2640 ICU-C10) Document 01/29/17 14:00 XBV6189 (Rec: 01/29/17 14:22 LNC5627 ICU-C16) Document 01/29/17 22:00 JMV4216 (Rec: 01/29/17 22:52 MNF1487 ICU-C16) Document 01/30/17 05:08 WAV6735 (Rec: 01/30/17 05:08 QQC1188 ICU-M01) Document 01/30/17 15:44 TPU1700 (Rec: 01/30/17 15:44 GYD5122 ICU-C16) Document 01/30/17 22:00 MIM2322 (Rec: 01/30/17 22:59 FMZ5859 ICU-M01) Document 01/31/17 05:57 SNF5532 (Rec: 01/31/17 05:57 XFI3849 ICU-M01) Document 01/31/17 09:30 JAK7693 (Rec: 01/31/17 11:07 BWV9166 ICU-C10) Document 01/31/17 14:00 FOY1180 (Rec: 01/31/17 14:29 MJE2379 ICU-C10) Document 01/31/17 22:00 OVO9339 (Rec: 01/31/17 22:33 RJG5172 ICU-M01) Document 02/01/17 02:55 APE2504 (Rec: 02/01/17 02:55 BCW4589 ICU-C16) Document 02/01/17 06:00 DHB2590 (Rec: 02/01/17 06:28 GDC0395 ICU-M01) Intake and Output Start: 02/01/17 13: 41 Freq: DAILY@0600,1400,2200 Status: Active Created 02/01/17 13:41 WDZ1723 (Rec: 02/01/17 13:41 IJC6728 TELE-C06) Document 02/01/17 13:45 RSR7343 (Rec: 02/01/17 13:45 KBU6666 TELE-C03) Document 02/01/17 22:00 PNP1357 (Rec: 02/01/17 22:33 JSM3573 TELE-C35) Document 02/02/17 06:00 UJZ3284 (Rec: 02/02/17 07:21 TCC4949 TELE-C34) Document 02/02/17 13:01 [id number] (Rec: 02/02/17 13:01 TTX3554 TELE-C01) Document 02/02/17 22:00 RQQ7334 (Rec: 02/03/17 00:27 MWO6100 TELE-C01) Document 02/03/17 06:00 ECL6918 (Rec: 02/03/17 07:01 SFM1825 TELE-C34) Results - Results Lab Results: Laboratory Results - last 24 hr 01/31/17 02/02/17 02/02/17 12:40 11:14 19:13 INR (Anticoag Therapy) APTT 57.6 H 40.7 H Antithrombin III Activ 82 Sodium Potassium Chloride Carbon Dioxide Anion Gap BUN Creatinine Est GFR ( Amer) Est GFR (Non-Af Amer) BUN/Creatinine Ratio Glucose Calcium Iron TIBC % Saturation Unsat Iron Binding Ferritin Vitamin B12 Folate 02/03/17 02/03/17 03:29 03:29 INR (Anticoag Therapy) 1.14 H APTT 62.2 H Antithrombin III Activ Sodium 135 Potassium 4.2 Chloride 107 Carbon Dioxide 24 Anion Gap 4 BUN 15 Creatinine 1.16 H Est GFR ( Amer) 57.7 Est GFR (Non-Af Amer) 44.8 BUN/Creatinine Ratio 12.9 Glucose 109 H Calcium 9.2 Iron 29 L TIBC 263 % Saturation 11 L Unsat Iron Binding 234 Ferritin 101.5 Vitamin B12 798 Folate > 20.00 Assessment - Problem List Assessment: Patient Problems DELMER (acute kidney injury) (Acute) Abdominal pain (Acute) Abnormal urinalysis (Acute) Acute pulmonary embolus (Acute) COPD (chronic obstructive pulmonary disease) (Acute) CVA (cerebral vascular accident) (Acute) DVT prophylaxis (Acute) Dyslipidemia (Acute) Full code status (Acute) HTN (hypertension) (Acute) Hypokalemia (Acute) Paroxysmal a-fib (Acute) Rash (Acute)
[2017-02-03] MEDS: Amiodarone TAB* 200 MG PO SCH ×2 (10:27→20:33)
[2017-02-03] MEDS: Sucralfate TAB* 1 GM PO SCH ×3 (10:27→16:14)
[2017-02-03 12:11] LABS: Protein C Activity 79 % (70 - 150)
[2017-02-03 13:01] LABS: LAC APTT 27 sec (26 - 36); LAC INR 1.1; Lac DRVVT Screen Ratio 0.9 ratio (0.0 - 1.1); Prothrombin Time(LAC) 11.7 sec
[2017-02-03] MEDS: LORazepam TAB(*) 0.5 MG PO PRN (14:07)
--- NOTE | 2017-02-03 15:45 | PN ---
Subjective Date of Service: 02/03/17 Interval History: HOSPITALIST PROGRESS NOTE Patient seen and examined at bedside. She c/o heartburn and indigestion, but overall feels better, able to communicate more. Family History: Unchanged from Admission Social History: Unchanged from Admission Past Medical History: Unchanged from Admission Objective Active Medications: Acetaminophen (Tylenol Tab*) 650 mg PO Q6H PRN PRN Reason: MILD PAIN/FEVER Last Admin: 02/03/17 06:18 Dose: 650 mg Al Hydrox/Mg Hydrox/Simethicone (Maalox Plus*) 30 ml PO Q6H PRN PRN Reason: INDIGESTION Amiodarone HCl (Cordarone Tab*) 200 mg PO BID MINGO Last Admin: 02/03/17 10:27 Dose: 200 mg Diphenhydramine HCl (Benadryl Po*) 25 mg PO Q6H PRN PRN Reason: ITCHING Last Admin: 02/02/17 20:21 Dose: 25 mg Heparin Sodium/Dextrose (Heparin Drip 25,000 Units(*)) 25,000 units in 500 mls @ 0 mls/hr IV .NO BOLUSES PROTOCOL MINGO; Per Protocol PRN Reason: Protocol Last Admin: 02/02/17 19:00 Dose: 14 mls/hr Lorazepam (Ativan Tab(*)) 0.5 mg PO Q6H PRN PRN Reason: ANXIETY Last Admin: 02/03/17 14:07 Dose: 0.5 mg Lovastatin (Mevacor (Nf)) 10 mg PO BEDTIME MINGO Last Admin: 02/02/17 20:21 Dose: 10 mg Morphine Sulfate (Morphine Inj (Syringe)*) 1 mg IV Q2H PRN PRN Reason: PAIN Last Admin: 02/03/17 00:37 Dose: 1 mg Omeprazole (Prilosec Cap*) 40 mg PO DAILY@0600 [place] Prochlorperazine Edisylate (Compazine Inj*) 5 mg IV Q6H PRN PRN Reason: NAUSEA/VOMITING Last Admin: 02/03/17 10:27 Dose: 1 ml Risperidone (Risperdal) 0.25 mg PO Q8H PRN PRN Reason: AGITATION Senna (Senokot Tab*) 2 tab PO BEDTIME MINGO Last Admin: 02/02/17 20:22 Dose: 2 tab Simethicone (Mylicon*) 80 mg PO Q6H PRN PRN Reason: DISCOMFORT Last Admin: 01/30/17 22:46 Dose: 80 mg Sucralfate (Carafate*) 1 gm PO 0700,1100,1600 [facility] Last Admin: 02/03/17 12:24 Dose: 1 gm Tiotropium [place] (Spiriva Cap.Inh*) 1 cap INH QAM [facility] Last Admin: 02/03/17 08:48 Dose: 1 cap Vital Signs 02/03/17 02/03/17 14:07 15:38 Temperature 97.8 F Pulse Rate 86 Respiratory 24 20 Rate Blood Pressure 145/64 (mmHg) O2 Sat by Pulse 97 Oximetry Oxygen Devices in Use Now: None Appearance: Pleasant elderly lady lying in bed in NAD. Eyes: No Scleral Icterus Ears/Nose/Mouth/Throat: Mucous Membranes Moist Neck: Trachea Midline Respiratory: Symmetrical Chest Expansion and Respiratory Effort, Clear to Auscultation Cardiovascular: RRR - Normal S1 and S2 Abdominal: NL Sounds; No Tenderness; No Distention Neurological: - - AAOx2 (self and place), expressive aphasia Lines/Tubes/Other Access: Clean, Dry and Intact Peripheral IV Nutrition: Taking PO's Result Diagrams: 02/02/17 06:19 02/03/17 03:29 Assess/Plan/Problems-Billing Assessment: Mrs. Osorio is an 81 yo F with PMH of COPD, HTN, who presented to ED with aphasia and left sided weakness, found to have Afib and embolic CVAs. 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 - Head MRA was negative. - Carotid dopplers shows 50-69% stenosis on the right, but this episode is cardioembolic secondary to Afib. This can be addressed as outpatient when she's stable. - Echo showed EF 55-60% with negative bubble study. - Patient needs anticoagulation for her Afib, PE/DVT, but initially, risk of bleeding was too high. Neurology input appreciated, d/w family - now that she's >5 days out of her CVA, benefits of anticoagulation surpass risks. Recommendation was to d/c Aspirin, start heparin drip with no boluses and transition to Warfarin. - Doing well, CT brain showed no signs of bleeding - continue heparin/Warfarin. - Continue PT, OT, and speech therapy. (2) Paroxysmal a-fib Comment: - New diagnosis this admission, likely the cause of her embolic CVAs. - Continue amiodarone PO 200mg BID for 7 days, then down to 200mg daily. - Continue heparin drip with no boluses and Warfarin. (3) Acute pulmonary embolus Comment: - W/u included V/Q scan showed a large perfusion defect in R lung on and VL dopplers positive for B/L DVT in LEs. - Was not anticoagulated due to extensive CVA, but plan is to start heparin drip with no boluses today and transition to warfarin. - s/p IVC filter 01/30/17. - With CVA, PE, DVT - Hematology evaluation appreciated and hypercoagulable w/u sent. (4) Rash Comment: - Macular rash suggestive of hives - improving - Benadryl PRN itching and monitor. (5) Dyslipidemia Comment: - LDL 51, continue Lovastatin. (6) HTN (hypertension) Comment: - Controlled off meds. (7) COPD (chronic obstructive pulmonary disease) Comment: - Stable. - Continue Spiriva. (8) DVT prophylaxis Comment: - Heparin drip. (9) Full code status Status and Disposition: Inpatient for CVA, PE, DVT, requiring >48h for stabilization. Will need rehab upon discharge.
[2017-02-03] MEDS ORDERED: Warfarin TAB(*) 5 MG PO ONE (17:00)
--- NOTE | 2017-02-03 17:13 | PN ---
PROGRESS NOTE: DATE OF SERVICE: 02/03/17 CURRENT LOCATION: Room 439, bed 1. SUBJECTIVE: Overnight, no issues. The patient is stable. She continues to work with Speech Therapy, but continues to have some expressive and receptive aphasia. She is sitting up in the chair today and has eaten breakfast. She follows some commands, but overall appears about the same. There have been no new issues overnight. OBJECTIVE: Vital Signs: Heart rate of 82 to 117, respiratory rate of 16, O2 stats 96%, last blood pressure of 136/65, temp of 97.7. General: She is a well - nourished, well-developed female sitting on her hospital bed. She is pleasant. HEENT: She is normocephalic, atraumatic. Sclerae anicteric. Mucous membranes are moist. Neck is supple. Chest: Clear to auscultation bilaterally. Cardiovascular: Irregularly irregular. Abdomen: Soft, nontender. Extremities: No edema present. Neurologic Examination: She is awake and alert. Her speech is nonfluent. She has both an expressive and an element of receptive aphasia as well. She follows some commands. Cranial Nerves: Pupils are equally round and reactive to light. Extraocular muscles are intact. Visual [place] are difficult to assess , but it appears that she may have some right-sided visual loss with confrontation. Face is symmetric. Tongue is midline. Palate is symmetric. Motor Exam: She is spontaneously moving all extremities antigravity. She has no drift apparent. Good resistance in the upper and lower extremities, although it is difficult to get her to comply to some of the examination. I see no focal weakness. Her tone is normal. Sensation: Appears to be intact to pain x4. DTRs are 1+ in the upper and lower extremities, absent at the ankles. [id number] and rapid alternating movements were difficult. She could not comply with the examination. There is no resting tremor. LABORATORY DATA: Her INR is 1.14, PTT of 62.2. Chemistry this morning, a BMP with a creatinine of 1.16, glucose of 109, iron of 29, percent sat of 11. ASSESSMENT AND PLAN: At this point, she is doing well, seems to be improving somewhat although continues to have a significant element of receptive and expressive aphasia. Speech Therapy will continue to work with her. I would continue her current management including heparin drip as a bridge to Coumadin. Continue blood pressure control, statin. Hematology continues to follow regarding any hypercoagulable workup and additional recommendations regarding her anticoagulation and I defer to them. She does not appear to be in any respiratory distress, and I believe her pulmonary emboli are stable and she is being transitioned to Coumadin therapy. At this point, I would recommend some physical therapy as inpatient for her. Otherwise, I have no new recommendations. I will follow along. [id number]/[facility] #: [id number] NAZANIN
[2017-02-03 18:37] LABS: Phospholipid Ab IgG < 9.4 GPL; Phospholipid Ab IgM, S < 9.4 MPL
[2017-02-03] MEDS: CMC:Lovastatin (NF) 10 MG TAB PO SCH (20:33)
[2017-02-03] MEDS: Senna TAB PO SCH (20:33)
[2017-02-04] MEDS: Heparin DRIP 25,000 UNITS(*) 25,000 UNITS/500 ML BAG IV SCH (05:36)
[2017-02-04] MEDS: Omeprazole CAP* 20 MG PO SCH (05:43)
[2017-02-04] MEDS: Sucralfate TAB* 1 GM PO SCH ×3 (07:38→15:08)
[2017-02-04] MEDS: Tiotropium CAP.INH* CAP.INH/18 MCG (USE ORDER SET !) INH SCH (08:08)
[2017-02-04] MEDS: Amiodarone TAB* 200 MG PO SCH ×2 (09:41→20:29)
[2017-02-04] MEDS: LORazepam TAB(*) 0.5 MG PO PRN ×2 (12:17→18:24)
--- NOTE | 2017-02-04 13:30 | PN ---
Subjective Date of Service: 02/04/17 Interval History: HOSPITALIST PROGRESS NOTE Patient seen and examined at bedside. Offers no complaints. Family History: Unchanged from Admission Social History: Unchanged from Admission Past Medical History: Unchanged from Admission Objective Active Medications: Acetaminophen (Tylenol Tab*) 650 mg PO Q6H PRN PRN Reason: MILD PAIN/FEVER Last Admin: 02/03/17 06:18 Dose: 650 mg Al Hydrox/Mg Hydrox/Simethicone (Maalox Plus*) 30 ml PO Q6H PRN PRN Reason: INDIGESTION Amiodarone HCl (Cordarone Tab*) 200 mg PO BID [facility] Last Admin: 02/04/17 09:41 Dose: 200 mg Diphenhydramine HCl (Benadryl Po*) 25 mg PO Q6H PRN PRN Reason: ITCHING Last Admin: 02/02/17 20:21 Dose: 25 mg Heparin Sodium/Dextrose (Heparin Drip 25,000 Units(*)) 25,000 units in 500 mls @ 0 mls/hr IV .NO BOLUSES PROTOCOL MINGO; Per Protocol PRN Reason: Protocol Last Admin: 02/04/17 05:36 Dose: 17 mls/hr Lorazepam (Ativan Tab(*)) 0.5 mg PO Q6H PRN PRN Reason: ANXIETY Last Admin: 02/04/17 12:17 Dose: 0.5 mg Lovastatin (Mevacor (Nf)) 10 mg PO BEDTIME [facility] Last Admin: 02/03/17 20:33 Dose: 10 mg Morphine Sulfate (Morphine Inj (Syringe)*) 1 mg IV Q2H PRN PRN Reason: PAIN Last Admin: 02/03/17 00:37 Dose: 1 mg Omeprazole (Prilosec Cap*) 40 mg PO DAILY@0600 [facility] Last Admin: 02/04/17 05:43 Dose: 40 mg Prochlorperazine Edisylate (Compazine Inj*) 5 mg IV Q6H PRN PRN Reason: NAUSEA/VOMITING Last Admin: 02/03/17 10:27 Dose: 1 ml Risperidone (Risperdal) 0.25 mg PO Q8H PRN PRN Reason: AGITATION Senna (Senokot Tab*) 2 tab PO BEDTIME [facility] Last Admin: 02/03/17 20:33 Dose: 2 tab Simethicone (Mylicon*) 80 mg PO Q6H PRN PRN Reason: DISCOMFORT Last Admin: 01/30/17 22:46 Dose: 80 mg Sucralfate (Carafate*) 1 gm PO 0700,1100,1600 [facility] Last Admin: 02/04/17 11:44 Dose: 1 gm Tiotropium [place] (Spiriva Cap.Inh*) 1 cap INH QAM [facility] Last Admin: 02/04/17 08:08 Dose: 1 cap Vital Signs 02/04/17 02/04/17 02/04/17 07:50 08:08 11:33 Temperature 98.1 F 98.2 F Pulse Rate 88 90 84 Respiratory 20 20 Rate Blood Pressure 145/66 140/61 (mmHg) O2 Sat by Pulse 94 96 97 Oximetry Oxygen Devices in Use Now: None Appearance: Pleasant elderly lady lying in bed in NAD. Eyes: No Scleral Icterus Ears/Nose/Mouth/Throat: Mucous Membranes Moist Neck: Trachea Midline Respiratory: Symmetrical Chest Expansion and Respiratory Effort, Clear to Auscultation Cardiovascular: RRR - Normal S1 and S2 Abdominal: NL Sounds; No Tenderness; No Distention Neurological: - - AAox2 (self and place), expressive aphasia Lines/Tubes/Other Access: Clean, Dry and Intact Peripheral IV Nutrition: Taking PO's Result Diagrams: 02/02/17 06:19 02/03/17 03:29 Assess/Plan/Problems-Billing Assessment: Mrs. Osorio is an 81 yo F with PMH of COPD, HTN, who presented to ED with aphasia and left sided weakness, found to have Afib and embolic CVAs. 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 - Head MRA was negative. - Carotid dopplers shows 50-69% stenosis on the right, but this episode is cardioembolic secondary to Afib. This can be addressed as outpatient when she's stable. - Echo showed EF 55-60% with negative bubble study. - Patient needs anticoagulation for her Afib, PE/DVT, but initially, risk of bleeding was too high. Neurology input appreciated, d/w family - now that she's >5 days out of her CVA, benefits of anticoagulation surpass risks. Recommendation was to d/c Aspirin, start heparin drip with no boluses and transition to Warfarin. - Doing well, CT brain showed no signs of bleeding - continue heparin/Warfarin. - Continue PT, OT, and speech therapy. (2) Paroxysmal a-fib Comment: - New diagnosis this admission, likely the cause of her embolic CVAs. - Continue amiodarone PO 200mg BID for 7 days, then down to 200mg daily. - Continue heparin drip with no boluses and Warfarin. (3) Acute pulmonary embolus Comment: - W/u included V/Q scan showed a large perfusion defect in R lung on and VL dopplers positive for B/L DVT in LEs. - Was not anticoagulated due to extensive CVA, but plan is to start heparin drip with no boluses today and transition to warfarin. - s/p IVC filter 01/30/17. - With CVA, PE, DVT - Hematology evaluation appreciated and hypercoagulable w/u sent. - INR 2.1 today - needs 24h of overlap with heparin. (4) Rash Comment: - Macular rash suggestive of hives - resolved. (5) Dyslipidemia Comment: - LDL 51, continue Lovastatin. (6) HTN (hypertension) Comment: - Controlled off meds. (7) COPD (chronic obstructive pulmonary disease) Comment: - Stable. - Continue Spiriva. (8) DVT prophylaxis Comment: - Heparin drip. (9) Full code status Status and Disposition: Inpatient for CVA, PE, DVT, requiring >48h for stabilization. Will need rehab upon discharge.
[2017-02-04] MEDS ORDERED: Warfarin TAB(*) 4 MG PO ONE (17:00)
[2017-02-04 17:48] LABS: Albumin 2.8 g/dL (3.4-4.7); Gamma Globulin 1.1 g/dL (0.6-1.6); Total Protein(PEP) 5.9 g/dL (6.3 - 7.9)
[2017-02-04] MEDS: Senna TAB PO SCH (20:28)
[2017-02-04] MEDS: CMC:Lovastatin (NF) 10 MG TAB PO SCH (20:28)
[2017-02-05] MEDS: Omeprazole CAP* 20 MG PO SCH (05:33)
[2017-02-05 05:55] LABS: Hematocrit 28 % (35-47); Hemoglobin 9.6 g/dl (12.0-16.0); Mean Corpuscular HGB Conc 34 g/dl (31-36); Mean Corpuscular Hemoglobin 31 pg (27-31); Mean Corpuscular Volume 92 fL (80-97); Mean Platelet Volume 8 um3 (7.4-10.4); Red Blood Count 3.07 10^6/ul (4.0-5.4); Red Cell Distribution Width 13 % (10.5-15); White Blood Count 9.6 10^3/ul (3.5-10.8)
[2017-02-05 05:56] LABS: Add Diff/Slide Review? Slide Review Added; Comments Flag Yes
[2017-02-05 06:08] LABS: EGFR African American 58.2 (>60); EGFR Non-African American 45.3 (>60)
[2017-02-05] MEDS: Sucralfate TAB* 1 GM PO SCH ×2 (06:19→10:58)
[2017-02-05 07:56] VITALS: BP 153/60
[2017-02-05] MEDS: Tiotropium CAP.INH* CAP.INH/18 MCG (USE ORDER SET !) INH SCH (08:17)
[2017-02-05] MEDS ORDERED: Amiodarone TAB* 200 MG PO SCH (09:00)
--- NOTE | 2017-02-05 11:51 | DS ---
CC: Dr. Box; Dr. Emerson; Dr. Walker; Dr. Casey; Dr. Ramirez; "with patient to [facility]" DISCHARGE SUMMARY: DATE OF ADMISSION: 01/26/17 DATE OF DISCHARGE: 02/05/17 PRIMARY CARE PROVIDER: Dr. Box. CONSULTING NEUROLOGISTS: 1. Dr. Emerson. 2. Dr. Walker. 3. Dr. Casey. CONSULTING CYBER POLICY AND STRATEGY PLANNER: Dr. Ramirez DISCHARGE DIAGNOSES: 1. Atrial fibrillation with rapid ventricular rate. 2. Embolic cerebrovascular accident. 3. Pulmonary embolism. 4. Bilateral lower extremity deep venous thrombosis. 5. Hypokalemia. 6. Anemia. 7. Possible hypercoagulable status. 8. Right internal carotid artery stenosis. 9. Delirium. SECONDARY DIAGNOSES: 1. Chronic obstructive pulmonary disease. 2. Hypertension. HOSPITAL COURSE: Ms. Osorio is an 81-year-old lady with a past medical history as stated above that presented to the emergency room on 01/26/17 with complaints of garbled speech. She was described as aphasic in the emergency room and her daughter provided the whole history. For more details, I ref er you to her history and physical. Her initial CT in the emergency room showed two areas of subacute nonhemorrhagic infarct involving t he right frontal lobe and basal ganglion through the external capsule corresponding with the right m edial cerebral artery distribution. CT of the cervical spine showed no CT evidence for traumatic th oracic spine injury. The patient was admitted for further evaluation and workup. A transthoracic echocardiogram showed e jection fraction of 55% to 60% and no PFO. She was seen in consultation by Neurology (Dr. Emerson) an d her impression was that the patient had presented with subacute infarction in the right hemisphere and she was concerned that the patient had had embolic infarcts bilaterally since the patient is ri ght- handed and that would give rise to her aphasia as well as her apparent left facial weakness. S he recommended a further workup including a carotid ultrasound that showed a 50% to 69% right international representative al carotid artery stenosis and less than 50% left internal carotid artery stenosis. MRI of the [facility] n showed subacute nonhemorrhagic infarct involving the right caudate, left temporal lobe, inferior p arietal lobe and occipital lobe. Distribution of multiple vascular territories suggests embolic dis ease. Head MRA showed no aneurysm, vascular malformation, occlusion, or restenosis of the visualize d intracranial circulation. The patient was seen in followup by Dr. Emerson and at that point there was no source found for her ap parent embolic infarction. The patient should continue to be monitored on telemetry to look for par oxysmal atrial fibrillation. At that point, the recommendation was to continue statin. She is not on aspirin as her CVA mechanism was embolic disease from atrial fibrillation. Later on during her hospital stay, the patient did develop atrial fibrillation. She was seen by Card iology (Dr. Craven) and his recommendation was for amiodarone to encourage the patient to stay in nor mal sinus rhythm. As she was having difficulty swallowing, the loading was done intravenously and h e recommended further discussion with Neurology regarding anticoagulation that should be started as soon as possible. The patient also developed hypoxia and a V/Q scan was performed and it showed ext ensive bilaterally unmatched pulmonary perfusion defects with high probability for pulmonary embolis m. Lower extremity Dopplers were performed, initial bilateral calf vein thrombus. At that point, N eurology still felt that full anticoagulation will be too risky as she was at very high risk for ble eding given the volume of her strokes. The recommendation was to wait 5 to 7 days post stroke befor e starting full anticoagulation. For that reason, considering her pulmonary embolism, the patient w as seen in consultation by General Surgery (Dr. Mendoza) and she was evaluated for an IVC filter place ment and this was performed by Dr. Silverio Garcias on 01/30/17. She will need further followup as outp atient in the future to decide when to remove the device. The patient was also found to have a superficial thrombophlebitis of the cephalic vein. Considering her presentation with strokes, PE, venous thrombosis, there was concern for hypercoagulable state. She was seen by Hematology (Dr. Ramirez) and his concern given her age was that the patient had an acq uired thrombophilia. He felt that she could have a new onset lupus and antiphospholipid antibody un derlying malignancy either hematologic or solid tumor. He recommended a hypercoagulable workup incl uding lupus anticoagulant, protein C, protein S, antithrombin III, anticardiolipin antibodies, proth rombin gene mutation, and factor V Leiden. He was also concerned with the possibility of underlying malignancy. The patient had a CT of the abdomen and pelvis that did not show any solid masses. St o for occult blood was negative and his recommendation was for screening mammogram and colonoscopy as outpatient. He was in agreement with anticoagulation with heparin and conversion to Coumadin an d his recommendation was for life-long anticoagulation unless otherwise medically contraindicated. A part of her hypercoagulable workup has returned. Her anticardiolipin IgM and IgG were negative. Protein C was 79, protein S was 112, antithrombin III was 82, but the remainder of the tests are sti ll pending and need to be followed as outpatient. The patient was started on a heparin drip and transitioned to warfarin. She did have some episodes of confusion, felt to be secondary to delirium. She had repeat CT brain done and they were all nega tive for bleeding. The patient received five days of heparin with overlap with Coumadin and her INR on the day of disch arge is 3.08. She was found to have PT/OT and speech pathology needs and she was thought to be medically stable fo r discharge to [facility] today. She will need follow up with Hematology (Dr. Ramirez) and Neurology (Dr. Emerson) as outpatient. Prior to admission, the patient was on losartan, atenolol, and diltiazem for blood pressure control, but she has obtained good blood pressure control while in the hospital off all those medications. She is on no antihypertensives at this point. She did have improvement of her dyspnea but still requires 2 L of supplemental oxygen to maintain ox ygen saturation greater than 90%. PHYSICAL EXAMINATION: Vital Signs: Temperature 98.1, heart rate is 75, respiratory rate is 20, oxy gen saturation is 96% on room air, and blood pressure is 163/60. General: The patient is a pleasan t, elderly lady lying in bed in no acute distress. HEENT: Pupils are equal and moist mucous membra bette. CVS: Normal S1 and S2. Regular rate and rhythm. Chest: Breath sounds present bilaterally. No added sounds. Abdomen: Soft. Bowel sounds present. Extremities: No edema. Neuro: She is al ert and oriented x2 to self and place. She is able to move all 4 extremities. There is mild left f acial weakness and significant expressive aphasia. MEDICATION LIST: 1. Lovastatin 10 mg p.o. at bedtime. 2. Spiriva one capsule inhale daily. NEW MEDICATIONS: 1. Acetaminophen 650 mg p.o. q.6 hours p.r.n. pain or fever. 2. Maalox Plus 30 mL p.o. q.6 hours p.r.n. indigestion. 3. Amiodarone 200 mg p.o. daily. 4. Lorazepam 0.5 mg p.o. q.6 hours p.r.n. anxiety, MDD 4 tablets. 5. Omeprazole 40 mg p.o. daily at 6 in the morning. 6. Senna two tablets p.o. at bedtime. 7. Simethicone 80 mg p.o. q.6 hours p.r.n. GI discomfort. 8. Sucralfate 1 g p.o. at 0700, 1100, and 1600. 9. Warfarin 3 mg p.o. on Sundays, Tuesdays, and Saturdays and 4 mg p.o. on Mondays, and Fridays, to be resumed on 02/06/17. DIET: Heart healthy diet with nectar thick liquids. ACTIVITIES: To continue PT/OT and speech therapy as tolerated. DISPOSITION: To [facility]. STATUS WHILE IN THE HOSPITAL: Inpatient. Please keep in mind this is a summarized version of this patient's complex and prolonged hospital [facility]. If you need more information, please feel free to call me at [phone] or please obtain t he full medical records. TIME SPENT: Approximately 50 minutes was spent to complete this discharge. The patient's daughter Leigh Cisneros was called and updated about her mother's status and she is in agreement with transfer to [facility]. [id number]/[facility] #: [id number]
[2017-02-05 23:06] LABS: Factor V Leiden Mutation Negative (Negative); Prothrombin 20210 Mutation Negative (Negative)
== END 2017-02-05 12:42 | DRG 40 ==
LOC: ED 07:04 → MEDTELE 09:18 → ICU 01-27 20:08 → MEDTELE 02-01 13:35
PROVIDERS: ADMIT Hospitalist; ATTEND Internal Medicine
PROC: 0T9B70Z Drainage of Bladder with Drainage Device, Via Natural or Artificial Opening (ICD-10-PCS; principal; 2017-01-27)
PROC: 06H03DZ Insertion of Intraluminal Device into Inferior Vena Cava, Percutaneous Approach (ICD-10-PCS; 2017-01-31)
DX: I63.411 Cerebral infarction due to embolism of right middle cerebral artery (principal); I26.99 Other pulmonary embolism without acute cor pulmonale; I95.9 Hypotension, unspecified; G81.94 Hemiplegia, unspecified affecting left nondominant side; D68.59 Other primary thrombophilia; I48.0 Paroxysmal atrial fibrillation; I82.4Z3 Acute embolism and thrombosis of unspecified deep veins of distal lower extremity, bilateral; I80.8 Phlebitis and thrombophlebitis of other sites; J44.9 Chronic obstructive pulmonary disease, unspecified; R13.10 Dysphagia, unspecified; R47.01 Aphasia; I10 Essential (primary) hypertension; F41.9 Anxiety disorder, unspecified; E78.5 Hyperlipidemia, unspecified; R40.2362 Coma scale, best motor response, obeys commands, at arrival to emergency department; R40.2142 Coma scale, eyes open, spontaneous, at arrival to emergency department; R40.2242 Coma scale, best verbal response, confused conversation, at arrival to emergency department; R29.717 NIHSS score 17; R10.9 Unspecified abdominal pain; R82.90 Unspecified abnormal findings in urine; R09.02 Hypoxemia; R00.0 Tachycardia, unspecified; R21 Rash and other nonspecific skin eruption; H53.461 Homonymous bilateral field defects, right side; E87.6 Hypokalemia; E86.0 Dehydration; R47.1 Dysarthria and anarthria; D64.9 Anemia, unspecified; I65.21 Occlusion and stenosis of right carotid artery; R41.0 Disorientation, unspecified; R29.810 Facial weakness; F32.9 Major depressive disorder, single episode, unspecified; Z79.01 Long term (current) use of anticoagulants; Z81.8 Family history of other mental and behavioral disorders; Z90.49 Acquired absence of other specified parts of digestive tract; Z98.41 Cataract extraction status, right eye; Z98.42 Cataract extraction status, left eye; I25.10 Atherosclerotic heart disease of native coronary artery without angina pectoris; Z91.048 Other nonmedicinal substance allergy status; Z88.2 Allergy status to sulfonamides; Z88.5 Allergy status to narcotic agent; Z87.891 Personal history of nicotine dependence; Z82.3 Family history of stroke
CPT/HCPCS: 36415; 70450; 70544; 70551; 71010; 72125; 74176; 76000; 78582; 80048; 80053; 80061; 80162; 80307; 80320; 80329; 81003; 81015; 81240; 81241; 82140; 82272; 82550; 82553; 82565; 82607; 82728; 82746; 83036; 83540; 83550; 83605; 83690; 83735; 83880; 84100; 84155; 84165; 84443; 84484; 84520; 85025; 85027; 85300; 85303; 85306; 85610; 85613; 85730; 86140; 86147; 87040; 87086; 93005; 93306; 93880; 93970; 94640; 94760; A9270-GY; A9540; A9558; C1880; C8929; G0480; J0282; J0690; J0696; J0780; J1160; J1644; J1940; J2001; J2060; J2250; J2270; J2405; J3010; J3475; J3480

== ENCOUNTER 2017-10-15 00:37 | Inpatient (IN) | payer MEDICARE, OTHER, MEDICAID ==
[2017-10-15 01:26] LABS: ABS Basophils 0.2 10^3/ul (0-0.2); ABS Eosinophils 0.2 10^3/ul (0-0.6); ABS Lymphocytes 2.9 10^3/ul (1.0-4.8); ABS Monocytes 0.8 10^3/ul (0-0.8); ABS Neutrophils 2.8 10^3/ul (1.5-7.7); ABS Nucleated RBC 0 10^3/ul; Eosinophil % 3.2 % (0-6); Hematocrit 18 % (35-47); Hemoglobin 5.2 g/dl (12.0-16.0); Lymphocyte % 41.8 % (25-47); Mean Corpuscular HGB Conc 29 g/dl (31-36); Mean Corpuscular Hemoglobin 17 pg (27-31); Mean Corpuscular Volume 59 fL (80-97); Mean Platelet Volume 6.4 um3 (7.4-10.4); Nucleated Red Blood Cells % 0.1; Platelet Count 776 10^3/ul (150-450); Red Blood Count 3.06 10^6/ul (4.0-5.4); Red Cell Distribution Width 20 % (10.5-15); White Blood Count 6.9 10^3/ul (3.5-10.8)
[2017-10-15 01:38] LABS: EGFR Non-African American 34.6 (>60)
[2017-10-15 01:41] LABS: Corrected Retic Count 1.1 % (0.5-1.5); Hematocrit for Retic CNT 19 % (35-47); Immature Retic Fraction 0.57; RBC Retic Count 3.13 10^6/ul (4.6-6.2)
--- NOTE | 2017-10-15 03:12 | ED ---
Julio César Hernandez Simon, scribed for Akash Morin MD on 10/15/17 at 0127 . Complex/Multi-Sys Presentation - HPI Summary HPI Summary: This patient is an 82 year old female presenting to [facility] from [facility] with a chief complaint of abnl lab results: low RBC count per RN; abnl lab results from earlier today. Pt denies knowng why she is in the ED, and is oriented to person. Pt not oriented to place. The patient rates the pain 0/10 in severity. Patient denies pain Level 5 caveat: cannot obtain full HPI d.t. confusion and being disoriented to place. - History Of Current Complaint Chief Complaint: EDGeneral Time Seen by Provider: 10/15/17 00:42 Hx Obtained From: Medical Records, Other: - [facility] Hx From Patient Unobtainable Due To: Altered Mental Status - Disoriented to place Onset/Duration: Still Present Timing: Constant Severity Currently: Moderate Severity Initially: Moderate Location: Negative Associated Signs And Symptoms: Positive: Confusion Related History: Other - Allergies/Home Medications Allergies/Adverse Reactions: Allergies Allergy/AdvReac Type Severity Reaction Status Date / Time MS Codeine [Codeine] Allergy KNOCKS HER Verified 04/03/15 10:26 OUT MS Sulfa Antibiotics Allergy Unknown Verified 04/03/15 10:26 [Sulfa Antibiotics] Reaction Details ENVIRONMENTAL/SEASONAL Allergy WATERY Uncoded 04/03/15 10:26 EYES, RUNNY NOSE PMH/Surg Hx/FS Hx/Imm Hx Cardiovascular History: Reports: Hx Coronary Artery Disease - CHOLESTEROL CONTROL WITH MED, Hx Hypertension Denies: Hx Pacemaker/ICD Respiratory History: Reports: Hx Chronic Obstructive Pulmonary Disease (COPD), Hx Seasonal Allergies, Other Respiratory Problems/Disorders - seasonal allergies GI History: Reports: Hx Gall Bladder Disease - removed History: Denies: Hx Acute Renal Failure, Hx Benign Prostatic Hyperplasia, Hx Chronic Renal Failure, Hx Dialysis, Hx Kidney Infection, Hx Kidney Stones, Other Problems/Disorders Musculoskeletal History: Reports: Hx Tendonitis - SHOULDER Sensory History: Reports: Hx Cataracts - removed, Hx Contacts or Glasses Denies: Hx Hearing Aid Opthamlomology History: Reports: Hx Cataracts - removed, Hx Contacts or Glasses Psychiatric History: Reports: Hx Anxiety, Hx Depression Denies: Hx Eating Disorder, Hx Panic Disorder, Hx Schizophrenia, Hx of Violent Episodes Against Others, Hx Substance Abuse - Cancer History Hx Chemotherapy: No Hx Radiation Therapy: No - Surgical History Surgery Procedure, Year, and Place: 1963 AND 1964 C SECTION, [facility]. 2008 BOWEL RESECTION, [facility]. 2012 LAPAROSCOPIC CHOLECYSTECTOMY, [place]. TABITHA diverticulitis. tubal ligation. JAN 2017 VENA CAVA FILTER. hysterectomy. catarct Hx Anesthesia Reactions: No Infectious Disease History: No Infectious Disease History: Reports: Hx Shingles Denies: Hx Clostridium Difficile, Hx Hepatitis, Hx Human Immunodeficiency Virus (HIV), Hx of Known/Suspected MRSA, Hx Tuberculosis, Hx Known/Suspected VRE , Hx Known/Suspected VRSA, History Other Infectious Disease, Traveled Outside the [place] in Last 30 Days - Family History Known Family History: Positive: Other - Anxiety disorder - sister - Social History Alcohol Use: Rare Hx Substance Use: No Substance Use Type: Reports: None Substance Use Comment - Amount & Last Used: klonopin for anxiety Hx Tobacco Use: Yes Smoking Status (MU): Former Smoker Amount Used/How Often: 1 PPD Review of Systems Positive: Other - distension Positive: Other - Pallor Neurological: Other - confusion All Other Systems Reviewed And Are Negative: No - Comments Additional Review of Systems Comments: Level 5 caveat: cannot obtain full ROS d.t. confusion and being disoriented to place. Physical Exam - Summary Physical Exam Summary: VITAL SIGNS:~Reviewed. GENERAL:~~Patient is a well-developed and nourished FEMALE who is lying comfortable in the stretcher. Patient is not in any acute respiratory distress. HEAD AND FACE:~No signs of trauma. No ecchymosis, hematomas or skull depressions. No sinus tenderness. EYES:~PERRLA, EOMI x 2, No injected conjunctiva, no nystagmus. EARS:~Hearing grossly intact. Ear canals and tympanic membranes are within normal limits. MOUTH:~Oropharynx within normal limits. NECK:~Supple, trachea is midline, no adenopathy, no JVD, no carotid bruit, no c- spine tenderness, neck with full ROM. CHEST:~Symmetric, no tenderness at palpation LUNGS:~Clear to auscultation bilaterally. No wheezing or crackles. CVS:~Regular rate and rhythm, S1 and S2 present, no murmurs or gallops appreciated. ABDOMEN:~Soft, non-tender. Distention. No rebound no guarding, and no masses palpated. Bowel sounds are normal. EXTREMITIES:~FROM in all major joints, no edema, no cyanosis or clubbing. NEURO:~Alert and oriented x2, Disoriented to place. No acute neurological deficits. Speech is normal and follows commands. 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 Brown stool sent for occult blood Cx. Triage Information Reviewed: Yes Vital Signs On Initial Exam: Initial Vitals Temp Pulse Resp BP Pulse Ox 97.9 F 63 16 161/64 95 10/15/17 00:46 10/15/17 00:46 10/15/17 00:46 10/15/17 00:46 10/15/17 00:46 Vital Signs Reviewed: Yes Completion Of Physical Exam Limited Due To: Altered Mental Status, Level 5 Diagnostics - Vital Signs Vital Signs Temp Pulse Resp BP Pulse Ox 10/15/17 00:46 97.9 F 63 16 161/64 95 - Laboratory Result Diagrams: 10/15/17 01:13 10/15/17 01:13 Lab Statement: Any lab studies that have been ordered have been reviewed, and results considered in the medical decision making process. Complex Multi-Symp Course/Dx Course Of Treatment: This patient is an 82 year old female presenting to [facility] from [facility] with a chief complaint of abnl lab results: low RBC count per RN; abnl lab results from earlier today. Pt denies knowng why she is in the ED, and is oriented to person. Pt not oriented to place. The patient rates the pain 0/10 in severity. Patient denies pain. Level 5 caveat: cannot obtain full HPI d.t. confusion and being disoriented to place. Test results with no significant abnormalities except for 5.2 Hgb, HCT of 18, RBC of 3.06, MCV of 59, MCH 17, BUN 30, Creatinine 1.45. We discussed patient care with Dr. Javier and they accepted pt admission - Diagnoses Provider Diagnoses: Anemia - Physician Notifications Discussed Care Of Patient With: Lee Javier Time Discussed With Above Provider: 01:58 Instructed by Provider To: Admit As Inpatient Discharge - Sign-Out/Discharge Documenting (check all that apply): Discharge/Admit/Transfer - Admitted to Dr. Javier - Discharge Plan Condition: Fair Disposition: ADMITTED TO [facility]: Augustine Box MD [Primary Care Provider] - - Billing Disposition and Condition Condition: FAIR Disposition: [facility] The documentation as recorded by the Julio César bhardwaj Simon accurately reflects the service I personally performed and the decisions made by me, Akash Morin MD.
[2017-10-15] MEDS ORDERED: Ondansetron INJ* 2 MG/ML VIAL IV PRN (03:42)
[2017-10-15 03:45] LABS: INR 1.05 (0.77-1.02)
[2017-10-15] MEDS ORDERED: Albuterol/Ipratropium NEB.SOL* Albuterol 2.5 MG/Ipratropium 0.5 MG 3 ML INH PRN (03:56)
[2017-10-15] MEDS: Levothyroxine TAB* 88 MCG TAB PO SCH (05:11)
[2017-10-15] MEDS: Pantoprazole IV* 40 MG IV SCH ×2 (05:11→16:47)
[2017-10-15] MEDS: clonazePAM TAB(*) 1 MG PO SCH ×2 (08:30→20:17)
[2017-10-15] MEDS: Amiodarone TAB* 200 MG PO SCH (08:30)
[2017-10-15] MEDS: Sucralfate TAB* 1 GM PO SCH ×2 (08:30→20:16)
--- NOTE | 2017-10-15 08:30 | RAD ---
INDICATION: Anemia COMPARISON: CT abdomen pelvis #2017 TECHNIQUE: Noncontrast axial source images were obtained from the hemidiaphragms to the symphysis pubis. This examination was ordered using a renal stone protocol which is performed without oral or intravenous contrast and therefore has inherent limitations when used to evaluate other intra-abdominal or intrapelvic pathology. Consider conventional contrast enhanced imaging if clinically indicated. Lung bases: The lung bases are clear. There are emphysematous changes Liver: The liver is normal in size. Noncontrast imaging shows no evidence of a hepatic mass or ductal dilatation. Gallbladder: Cholecystectomy. Spleen: The spleen is normal in size. The noncontrast CT appearance is normal. Pancreas: Noncontrast imaging shows no pancreatic mass or ductal dilitation. Adrenal glands: No masses are identified. Kidneys/Bladder: There are tiny (1 to 2 mm) mid and upper pole right renal calculi without associated obstruction. Noncontrast imaging shows no evidence of a renal mass. The bladder is unremarkable.. Adenopathy: There is no evidence of intraperitoneal or retroperitoneal adenopathy. Evaluation is limited without oral contrast. Fluid collections: There are no free or localized fluid collections. Vessels: There are atherosclerotic changes of the aorta and iliac vessels. There is no focal aneurysm. There is an IVC filter. Pelvic organs: The prostate and seminal vesicles appear normal GI tract: Evaluation of the bowel is limited without oral contrast. The stomach, small bowel, and lower GI tract appear grossly normal. There are no obstructive findings. Soft tissues: No soft tissue abnormalities of the extraperitoneal abdomen or pelvis are identified. Osseous structures: There are no acute osseous findings. IMPRESSION: NO ACUTE CT FINDINGS. TINY NONOBSTRUCTIVE RIGHT RENAL CALCULI
[2017-10-15] MEDS ORDERED: Metoprolol Tartrate TAB* 25 MG PO SCH (09:00)
[2017-10-15 09:43] LABS: ABS Basophils 0.1 10^3/ul (0-0.2); ABS Eosinophils 0.2 10^3/ul (0-0.6); ABS Lymphocytes 1.7 10^3/ul (1.0-4.8); ABS Monocytes 0.6 10^3/ul (0-0.8); ABS Neutrophils 3.2 10^3/ul (1.5-7.7); ABS Nucleated RBC 0 10^3/ul; Eosinophil % 3.9 % (0-6); Hematocrit 24 % (35-47); Hemoglobin 7.4 g/dl (12.0-16.0); Lymphocyte % 28.9 % (25-47); Mean Corpuscular HGB Conc 31 g/dl (31-36); Mean Corpuscular Hemoglobin 20 pg (27-31); Mean Corpuscular Volume 66 fL (80-97); Mean Platelet Volume 6.5 um3 (7.4-10.4); Nucleated Red Blood Cells % 0.2; Platelet Count 668 10^3/ul (150-450); Red Cell Distribution Width 27 % (10.5-15); White Blood Count 5.9 10^3/ul (3.5-10.8)
[2017-10-15] MEDS ORDERED: Metoprolol Tartrate TAB* 25 MG PO ONE (10:00)
[2017-10-15 10:07] LABS: EGFR Non-African American 40.3 (>60)
--- NOTE | 2017-10-15 10:46 | HP ---
CC: Gabino Pulido * HISTORY AND PHYSICAL: DATE OF ADMISSION: 10/15/17 PRIMARY CARE PROVIDER: Gabino Pulido. ATTENDING PHYSICIAN WHILE IN THE HOSPITAL: Lee Javier MD * (report dictated by Jose Faustin NP). CHIEF COMPLAINT: Blood per rectum. HISTORY OF PRESENT ILLNESS: Ms. Osorio is an 82-year-old female patient with complex medical history. I would like to preface this report by saying the patient has a significant amount of underlying dementia. She is really unable to tell me why she is here today. She is asking me during my interview that she would like to go home. According to [facility]ino De Paz notes the patient was sent over because she had hemoglobin noted to be 5.2. Unfortunately, the patient does have history of possible hypercoagulable state. 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 She did undergo IVC filter and she has a history of right carotid artery stenosis, anemia, hyperlipidemia, hypertension and history again COPD. In interviewing the patient according to the nursing staff , the patient was actually sleeping tonight and they drawn blood outpatient unclear reason as to why, but the patient was woken up from sleep and brought into the ER. In interviewing the patient, she said she is not having any pain. She denies any chest pain, shortness of breath. She does not feel lightheaded. She said she does not feel like she is going to faint or pass out. She states that she is feeling well and again she continues to ask if she can go home and was noted here that the hemoglobin was 5.2. Blood was ordered and because of this we were asked to evaluate for admission. PAST MEDICAL HISTORY: According to the Gabino De Paz notes which the patient cannot confirm includes: 1. Dementia. 2. COPD. 3. Hypertension. 4. Hyperlipidemia. 5. CVA. 6. Anxiety. 7. AFib. 8. PE. 9. Bilateral DVT. 10. Anemia. 11. Right carotid artery stenosis. PAST SURGICAL HISTORY: She has had an IVC filter placed. MEDICATIONS: Home meds according to the list provided include: 1. Senna with Colace combination 2 tablets p.o. b.i.d. 2. Xarelto 15 mg daily. 3. Prilosec 40 mg daily. 4. MiraLAX 17 g p.o. daily. 5. Metoprolol 25 mg p.o. b.i.d. 6. Lovastatin 10 mg p.o. at bedtime. 7. Klonopin she takes 1 mg p.o. b.i.d. and she takes 0.5 mg in the noon. 8. Synthroid 88 mcg daily. 9. Carafate 1 g p.o. b.i.d. 10. DuoNeb 1 inhaler every 6 hours as needed. 11. Lidocaine 4% externally b.i.d. to lower back. 12. Aspirin 81 mg daily. 13. Amiodarone 200 mg daily. 14. Tylenol extra strength 1000 mg p.o. twice a day as needed for moderate pain and 1000 mg daily for mild pain. ALLERGIES TO MEDICATIONS: 1. CODEINE. 2. SULFA DRUGS. FAMILY HISTORY: Unable to be obtained. SOCIAL HISTORY: She resides at [place]. Her emergency contact and surrogate decision maker is her daughter, which I left the message with Mera Cisneros. Phone number [phone]. REVIEW OF SYSTEMS: A question of validity given the underlying dementia, but the patient is denying any recent fevers, chills. No nausea or vomiting. There has been no dysuria. No frequency. No seizure. No loss of conscious. No pruritus. No skin ulcerations. Denied any chest pain or shortness of breath. PHYSICAL EXAMINATION GENERAL: At this time, Ms. Osorio is an 82-year-old female patient, she is sitting in the ED stretcher. She does not appeared to in any acute distress. VITAL SIGNS: Blood pressure 169/69, pulse 68, respirations 16, O2 sat 96% on room air, and temperature 98.2. HEENT: Head is atraumatic, normocephalic. Eyes: EOMs intact. Sclerae did appear to be pale and is anicteric. Throat: Oral mucosa appears to be dry. No oropharyngeal erythema. NECK: Supple. LUNGS: Clear to auscultation bilaterally. No wheezes, rales, or rhonchi. HEART: Sounds S1 and S2. Regular rate and rhythm. No murmurs, rubs, or gallops. ABDOMEN: Soft, flat, and was nontender. Bowel sounds are present. EXTREMITIES: Pulses were 2+ throughout. No peripheral edema. She is moving all 4 extremities. RECTAL: Did revealed brown stool. There was no obvious bleeding or tarry stools. NEUROLOGIC: She is awake and oriented to herself only. She confused with place and time. Speech is clear. Tongue midline. Hydraulic Specialist were equal. She had no gross focal deficits. SKIN: Intact. It does appear to be pale particularly around her mouth. LABORATORY DATA: The labs today revealing a WBC of 6.9, RBC of 3.06, hemoglobin 5.2, hematocrit of 18. She is microcytic with MCV 59, MCH 17. She has INR 1.05. Her sodium is 136, potassium 4.7, chloride 107, bicarb is noted to be 22, BUN 30, creatinine 1.45, glucose 98, mag 2.0. Total bili 0.3, AST 15 , ALT 13, alk phos 72, albumin 3.7. Old medical records reviewed. She did have negative Hemoccult. ASSESSMENT AND PLAN: Ms. Osorio is an 82-year-old female patient with complex medical history coming into the ER today with complaints of abnormal labs. She will be admitted under inpatient status: 1. Anemia. Again etiology is unclear at this point. There is no obvious sources of bleeding. I am going to get a CT of the abdomen just to make sure there is no underlying hematoma that we may be missing, but she is not really having any pain and there is no reported trauma. The patient was awakened out of sleep to come into the ER for this evaluation today. According to the nursing here, she is now newly microcytic. I question if she does have slow bleed. We should consider getting GI involved. I did put her on b.i.d. PPI. Her BUN is only 30, creatinine is right near her baseline. I am going to hold the Xarelto for now. I do know this is risky; however, with hemoglobin of 5, I do not want to continue her on a blood thinner. I am going to touch base with Hem/Onc. I am not going to reverse this with Kcentra for the time being and we will continue to give her 2 units of blood, check iron studies. Retic count was checked. I will check an LDH and haptoglobin, B12 and folate studies although this is not a macrocytic anemia, it is microcytic, and we will continue to follow. 2. History of cerebrovascular accident secondary to to atrial fibrillation. Unfortunately, I do need to hold the Xarelto in the setting of this low H and H and we will need to figure out if there is any active bleeding going on before continuing to restart it and I will continue to monitor. 3. Chronic obstructive pulmonary disease. I have ordered a p.r.n. nebs. 4. Hypertension. Continue meds as prescribed. 5. Atrial fibrillation. Again continue meds with the exception of Xarelto. 6. History of bilateral PE and DVTs, question of hypercoagulable state in the setting of hemoglobin of 5 and question of bleeding. I am going to go ahead and hold this Xarelto, is due tomorrow. So, we will touch base with Hem/Onc this morning and see what they recommend. 6. DVT prophylaxis. I did ordered SCDs. 7. Dementia. Continue with supportive care. 8. Fluids, electrolytes, and nutrition. I ordered a clear liquid diet. 9. Code status. She does have MOLST form. 10. I did try to touch base with the patient's daughter. I left the message with her. TIME SPENT: Time spent on the admission was 60 minutes, greater than half the time was spent [id number] with the patient obtaining my history and physical, the other half time was spent going over the plan of care with the patient and implementing plan of care. I did discuss the plan of care with my attending Dr. Javier. He is in agreement. JOSE FAUSTIN, CRISTOBAL [id number]/[facility] #: [id number] NAZANIN
[2017-10-15] MEDS: clonazePAM TAB(*) 0.5 MG PO SCH (12:43)
[2017-10-15 16:39] LABS: ABS Basophils 0.2 10^3/ul (0-0.2); ABS Eosinophils 0.2 10^3/ul (0-0.6); ABS Monocytes 0.7 10^3/ul (0-0.8); ABS Neutrophils 3.5 10^3/ul (1.5-7.7); ABS Nucleated RBC 0 10^3/ul; Eosinophil % 3.1 % (0-6); Hematocrit 25 % (35-47); Hemoglobin 7.8 g/dl (12.0-16.0); Lymphocyte % 30.5 % (25-47); Mean Corpuscular HGB Conc 31 g/dl (31-36); Mean Corpuscular Hemoglobin 20 pg (27-31); Mean Corpuscular Volume 66 fL (80-97); Mean Platelet Volume 6.4 um3 (7.4-10.4); Nucleated Red Blood Cells % 0.1; Platelet Count 720 10^3/ul (150-450); Red Blood Count 3.84 10^6/ul (4.0-5.4); Red Cell Distribution Width 27 % (10.5-15); White Blood Count 6.6 10^3/ul (3.5-10.8)
--- NOTE | 2017-10-15 18:39 | PN ---
Hospitalist Progress Note Date of Service: 10/15/17 Pt seen and examined. Meds and labs reviewed. ROS: Denied STOREY/dizziness, F/C, N/V, CP, SOB, increased cough, sputum production , abd pain, diarrhea, constipation, dysuria, myalgias, arthralgias, throat pain , and new skin lesions. The rest of the 14 point ROS are unremarkable. PHYSICAL EXAM: GEN APPEARANCE: Awake, not in acute distress HEENT: NC/AT, PERRLA, moist oral mucosa, (-) throat erythema NECK: Soft, supple, (-) cervical LAD, (-)JVD HEART: S1S2 WNL, RRR, No MRG CHEST: CTA, BL, GAE, No W/R/R ABD: Soft, ND/NT, NABS 4x Q EXT: No C/C/E SKIN: Warm to touch PSYCH: No active psychosis, hallucinations, depression, SI/HI ASSESSMENT AND PLAN: #Anemia: -Severe Iron deficiency anemia -S/P 2 units PRBC transfusion and repeat CBC shows stable H&H -Consider IV Iron therapy in AM -Re-check CBC at ~12AM -Will await any further input from Drs. Moreira and Milly #HTN: -Continue Metoprolol #Hypothyroidism: -Continue Synthroid -Will check TSH #A. fib: -Continue Metoprolol and Amiodarone -Not on anticoagulation given concern for possible low level chronic bleed #DVTp: -Continue SCD #Dispo: -As above
[2017-10-15] MEDS: Metoprolol Tartrate TAB* 25 MG PO SCH (20:17)
[2017-10-15] MEDS: Atorvastatin* 10 MG TAB PO SCH (20:17)
[2017-10-16 00:34] LABS: ABS Basophils 0.2 10^3/ul (0-0.2); ABS Eosinophils 0.3 10^3/ul (0-0.6); ABS Lymphocytes 2.6 10^3/ul (1.0-4.8); ABS Monocytes 0.9 10^3/ul (0-0.8); ABS Neutrophils 3.9 10^3/ul (1.5-7.7); ABS Nucleated RBC 0 10^3/ul; Eosinophil % 3.4 % (0-6); Hematocrit 24 % (35-47); Hemoglobin 7.5 g/dl (12.0-16.0); Lymphocyte % 33.1 % (25-47); Mean Corpuscular HGB Conc 31 g/dl (31-36); Mean Corpuscular Hemoglobin 20 pg (27-31); Mean Corpuscular Volume 65 fL (80-97); Mean Platelet Volume 6.3 um3 (7.4-10.4); Nucleated Red Blood Cells % 0.1; Platelet Count 681 10^3/ul (150-450); Red Blood Count 3.71 10^6/ul (4.0-5.4); Red Cell Distribution Width 27 % (10.5-15); White Blood Count 7.8 10^3/ul (3.5-10.8)
[2017-10-16] MEDS: Pantoprazole IV* 40 MG IV SCH ×2 (04:00→17:52)
[2017-10-16] MEDS: Levothyroxine TAB* 88 MCG TAB PO SCH (05:40)
[2017-10-16 06:33] LABS: ABS Basophils 0.2 10^3/ul (0-0.2); ABS Eosinophils 0.3 10^3/ul (0-0.6); ABS Neutrophils 4.1 10^3/ul (1.5-7.7); ABS Nucleated RBC 0 10^3/ul; Eosinophil % 3.5 % (0-6); Hematocrit 27 % (35-47); Hemoglobin 8.3 g/dl (12.0-16.0); Lymphocyte % 26.6 % (25-47); Mean Corpuscular HGB Conc 31 g/dl (31-36); Mean Corpuscular Hemoglobin 20 pg (27-31); Mean Corpuscular Volume 67 fL (80-97); Mean Platelet Volume 6.4 um3 (7.4-10.4); Nucleated Red Blood Cells % 0; Platelet Count 734 10^3/ul (150-450); Red Blood Count 4.08 10^6/ul (4.0-5.4); Red Cell Distribution Width 27 % (10.5-15); White Blood Count 7.5 10^3/ul (3.5-10.8)
--- NOTE | 2017-10-16 07:19 | CONS ---
HEMATOLOGY CONSULTATION NOTE: DATE OF CONSULT: 10/15/17 REASON FOR CONSULTATION: Severe anemia in the setting of prior hypercoagulable state and thromboses. HISTORY: Jess Osorio is an 82-year-old female who was seen in consultation by Dr. Ramirez from our office during the admission of January 2017. At that time, she was found to have new onset of atrial fibrillation in a cerebrovascular accident. There were 2 areas of ischemia noted in the distribution of the right middle cerebral artery. She had garbled speech. She had been living independently until that time. CT and MRI of the brain were consistent with an embolic subacute non- hemorrhagic infarct in the caudate and left temporal lobes, inferior parietal lobe, and occipital lobe. A V/Q scan was performed, which revealed multiple ventilation perfusion mismatches and the high probability for pulmonary emboli. Venous Doppler revealed thrombosis in the calves bilaterally and also an upper extremity Doppler revealed superficial thrombosis and cephalic vein in the left upper extremity. Because of multiple areas of thromboses, an IVC filter was placed. The patient was started on heparin 5 days post CVA and then transitioned to oral anticoagulation. The patient underwent a hypercoagulable workup, which revealed normal prothrombin gene mutation, factor V Leiden, protein C, protein S, antithrombin III and anticardiolipin antibodies. CT scan of the abdomen and pelvis in January 2017 did not reveal any significant abnormalities related to potential malignancy. CT scan was performed to rule out ischemic bowel and was negative. At that time her hemoglobin was 11.1 with a normal white count, platelet count and MCV. At the time of this admission, the patient has been living at [facility] since the time of her prior hospitalization. She was admitted with marked anemia with a hemoglobin of 5.2, extremely microcytic with MCV of 59 and documented iron deficiency. There were no obvious bleeding sites, but her son does report that she did have some vaginal bleeding while at the correction, but he cannot remember exactly when. He does not believe that this went on for any significant periods of time. She had been on Eliquis until just prior to this admission. The son thinks it may have stopped recently, but he is not sure when. CT scan of the abdomen and pelvis does not reveal any significant masses or bleeds. Per the admission note of Jose Faustin, the patient had laboratory studies done for unclear reasons and was found to have a low hemoglobin and then brought to the emergency room for evaluation. PAST MEDICAL HISTORY: Bilateral DVTs with pulmonary emboli in January 2017, CVA in January 2017, atrial fibrillation first documented in January 2017, recent worsening anemia, dementia, COPD, hypertension, hyperlipidemia, right carotid artery stenosis. Status post IVC filter placement. MEDICATIONS: Prior to this admission included: 1. Bowel medications of senna and Colace. 2. Xarelto 15 mg daily. 3. Prilosec 40 mg daily. 4. Metoprolol 25 mg b.i.d. 5. Lovastatin 10 mg h.s. 6. Klonopin 1 mg b.i.d. and 0.5 mg in the middle of the day. 7. Synthroid 88 mcg daily. 8. Carafate 1 g b.i.d. 9. DuoNeb inhaler q.6 hours p.r.n. 10. Lidocaine patch b.i.d. to lower back. 11. Aspirin 81 mg daily. 12. Amiodarone 200 mg daily. ALLERGIES: CODEINE and SULFA. FAMILY HISTORY: Unobtainable. SOCIAL HISTORY: The patient resides at [place]. Her son is there at the time of my office visit today. There is also a daughter who is her surrogate decision maker named Mera Kruse. REVIEW OF SYSTEMS: Son reports that he believes that her weight has been stable recently, does not believe that she has had any significant recent infections nor any nausea or vomiting. Does not believe she has had any major chest pain or shortness of breath or palpitations. Otherwise, review of systems unable to be obtained from the patient. PHYSICAL EXAMINATION: An 82-year-old female, in no acute distress, lying comfortably in bed, does answer a few questions, although accuracy of her answers are difficult to assess. Vital Signs: Stable, afebrile. Lungs: Clear. Heart: Regular rate and rhythm without murmurs, rubs, or gallops. Abdomen: Soft, nontender, without masses or organomegaly. Extremities: No clubbing, cyanosis or edema. Rectal exam not performed today, but it did show brown stool per the admitting diagnosis. Neurologic Exam: The patient is confused, does know her name and that of her son. Speech is clear. No gross focal deficits are noted. LABORATORY STUDIES: White count 6900, hemoglobin 5.2, hematocrit 18, MCV is 59. INR 1.05. Electrolytes are without significant abnormalities. IMPRESSION: 1. A 82-year-old female who has been on Xarelto at least until recently, maybe until this hospitalization. She now presents with a marked anemia. Her Xarelto has been held. Given the fact there is no obvious active bleeding, there is no role for reversing her Xarelto. There is no real reason to suspect hemolysis nor to suspect B12 or folic acid deficiency given this is a microcytic anemia with iron deficiency documented. The patient should have a GI workup given that this is the most obvious likely source of bleed. If the GI workup is negative, pelvis exam and endometrial biopsy should be considered. The patient has received a transfusion and should continue to re-transfuse to try to get her hemoglobin of at least 8. 2. History of deep venous thrombosis. The patient does have a filter, which as explained to the patient's son, does provide some protection to the pulmonary emboli but not complete protection. Clearly, at the present time she would be better off anticoagulation given her H and H and her recent likely significant bleed. 3. Code status. DNR on her MOLST form. [id number]/[facility] #: [id number] MTDMurray
[2017-10-16] MEDS: Metoprolol Tartrate TAB* 25 MG PO SCH ×2 (08:42→20:21)
[2017-10-16] MEDS: Sucralfate TAB* 1 GM PO SCH ×2 (08:42→20:22)
[2017-10-16] MEDS: Amiodarone TAB* 200 MG PO SCH (08:42)
[2017-10-16] MEDS: clonazePAM TAB(*) 1 MG PO SCH ×2 (08:43→20:21)
[2017-10-16] MEDS ORDERED: IRON DEXTRAN IVPB ONE ×2 (10:00→11:30)
[2017-10-16] MEDS ORDERED: NS 0.9% IVPB ONE ×2 (10:00→11:30)
--- NOTE | 2017-10-16 10:16 | RAD ---
INDICATION: Right lower extremity pain, history of DVT. COMPARISON: Comparison is made with a prior study from January 29, 2017. TECHNIQUE: Multiple real-time, color flow and Doppler tracings of the right lower extremity were obtained. FINDINGS: The common femoral, femoral, profunda femoral and popliteal veins all demonstrate normal compressibility, augmentation with compression and phasic response with respiration. The posterior tibial and peroneal veins demonstrate normal compressibility and augmentation with compression. IMPRESSION: NO EVIDENCE FOR DEEP VENOUS THROMBOSIS.
--- NOTE | 2017-10-16 14:07 | PRO ---
DATE: 10/15/17 - ROOM #[id number] REFERRING PHYSICIANS: Augustine Box; Lee Javier.* PROCEDURE: Upper gastrointestinal endoscopy to the distal duodenum INDICATION: This 82-year-old woman, was found to be anemic during routine blood studies at [place]. It is not entirely clear why they were done. She has been on Xarelto for many months after CVA and DVT in January of 2017. She has not had any overt bleeding other than sometimes seeing a little bit of hemorrhoidal bleeding according to her son, Dylan ([phone]), who today gave informed consent for the procedure and reversal of her MOLST form. ENDOSCOPIST: Dr. Cedillo. MEDICATIONS: Midazolam 5, fentanyl 50 (the patient is on Klonopin daily). FINDINGS: She is a slightly pale, frail, elderly woman, alert, but confused and unable to give a history other than her name. EGD: Larynx - symmetric limited views - narrow. Esophagus - easily entered, and the cricopharyngeus had fairly prominent tone. Mucosa in the upper mid and lower esophagus was normal with the EG junction slightly loose with a minimal hiatal hernia. There were no erosions. There was no fundic prolapse. Stomach - generally normal mucosa with some bile. The rugal pattern appeared normal. There were no erosions and no bleeding. There was no deformity. The antrum was normal. Duodenum - the pylorus, bulb, and second through fourth portions appear normal. IMPRESSION: 1. Small hiatal hernia. 2. Otherwise normal upper endoscopy. 3. Anemia with heme negative stool - at this point, I do not believe that a colon evaluation is advisable given the burden of the exam and the inability to effectively deal with what might be found even if it is dramatic positive findings. I would restore iron and consider an alternate, less intense anticoagulation regimen. Holiness of iron could palliate the situation for many months if not years. This was discussed with the patient's son post procedure. [id number]/[facility] #: [id number] [facility] MEDICAL CENTERMurray
[2017-10-16] MEDS: clonazePAM TAB(*) 0.5 MG PO SCH (14:36)
--- NOTE | 2017-10-16 16:56 | RAD ---
HISTORY: Right leg swelling COMPARISONS: None relevant TECHNIQUE: Multiple contiguous axial CT images are obtained of the right lower extremity from the hip through the midfoot, with coronal and sagittal multiplanar reconstructions, without intravenous contrast administration. FINDINGS: BONE DENSITY: There is diffuse osteopenia. BONES: There is no displaced fracture. JOINTS: There is osteoarthritis of the right hip, and right knee. There is physiologic fluid within the joint space. MUSCULATURE: Unremarkable ALIGNMENT: There is no dislocation. SOFT TISSUES: Unremarkable. There is no appreciable subcutaneous edema. OTHER FINDINGS: None. IMPRESSION: 1. OSTEOPENIA. 2. OSTEOARTHRITIS. 3. NO ACUTE OSSEOUS INJURY TO THE VISUALIZED PORTION OF THE RIGHT LOWER EXTREMITY. THERE IS NO SIGNIFICANT SUBCUTANEOUS EDEMA. THERE IS PHYSIOLOGIC FLUID WITHIN THE RIGHT KNEE JOINT SPACE.
[2017-10-16] MEDS: Acetaminophen TAB* 325 MG PO PRN (18:11)
--- NOTE | 2017-10-16 20:10 | PN ---
Hospitalist Progress Note Date of Service: 10/16/17 Pt seen and examined. Meds and labs reviewed. ROS: Denied STOREY/dizziness, F/C, N/V, CP, SOB, increased cough, sputum production , abd pain, diarrhea, constipation, dysuria, myalgias, arthralgias, throat pain , and new skin lesions. The rest of the 14 point ROS are unremarkable. PHYSICAL EXAM: GEN APPEARANCE: Awake, not in acute distress HEENT: NC/AT, PERRLA, moist oral mucosa, (-) throat erythema NECK: Soft, supple, (-) cervical LAD, (-)JVD HEART: S1S2 WNL, RRR, No MRG CHEST: CTA, BL, GAE, No W/R/R ABD: Soft, ND/NT, NABS 4x Q EXT: No C/C/RLE (+)1 SKIN: Warm to touch PSYCH: No active psychosis, hallucinations, depression, SI/HI ASSESSMENT AND PLAN: #Anemia: -Severe Iron deficiency anemia -S/P 2 units PRBC transfusion and repeat CBC shows stable H&H -Patient given 15 mL of Iron Dextran -S/P EGD by Dr. Moreira yesterday (10/15) which was unremarkable; colonoscopy was deferred given it her hemoccult was negative and will place her in unnecessary risk -Will touch base with Dr. Atkins regarding Xarelto prior to D/C given he believed the severe anemia to be of GI source; -??Possible AVM #HTN: -Continue Metoprolol #Hypothyroidism: -Continue Synthroid -TSH is normal #A. fib: -Continue Metoprolol and Amiodarone -Not on anticoagulation given concern for possible low level chronic bleed -Please see above discussion #RLE edema: -Ruled out for DVT -CT of extremity shows physiologic fluid within the right knee with no signs of fractures; possibly mild lymphedema? #DVTp: -Continue SCD #Dispo: -D/C back to [facility] when ready
[2017-10-16] MEDS: Atorvastatin* 10 MG TAB PO SCH (20:22)
[2017-10-17] MEDS: Pantoprazole IV* 40 MG IV SCH (03:49)
[2017-10-17] MEDS: Levothyroxine TAB* 88 MCG TAB PO SCH (05:22)
[2017-10-17 06:19] LABS: Hematocrit 27 % (35-47); Hemoglobin 8.3 g/dl (12.0-16.0); Mean Corpuscular HGB Conc 31 g/dl (31-36); Mean Corpuscular Hemoglobin 21 pg (27-31); Mean Corpuscular Volume 66 fL (80-97); Mean Platelet Volume 6.2 um3 (7.4-10.4); Platelet Count 759 10^3/ul (150-450); Red Blood Count 4.07 10^6/ul (4.0-5.4); Red Cell Distribution Width 27 % (10.5-15); White Blood Count 5.9 10^3/ul (3.5-10.8)
[2017-10-17 06:27] LABS: EGFR Non-African American 39.6 (>60)
[2017-10-17] MEDS: Amiodarone TAB* 200 MG PO SCH (08:40)
[2017-10-17] MEDS: Acetaminophen TAB* 325 MG PO PRN (08:40)
[2017-10-17] MEDS: Metoprolol Tartrate TAB* 25 MG PO SCH (08:41)
[2017-10-17] MEDS: clonazePAM TAB(*) 1 MG PO SCH (08:41)
[2017-10-17] MEDS: Sucralfate TAB* 1 GM PO SCH (08:41)
[2017-10-17 11:48] VITALS: BP 140/52
--- NOTE | 2017-10-17 11:53 | DS ---
CC: Dr. Atkins; Dr. Cedillo; Dr. Box; Dr. Mayberry DATE OF ADMISSION: 10/15/2017. DATE OF DISCHARGE: 10/17/2017. DISCHARGE DIAGNOSES: 1. Severe iron deficiency anemia, possibly secondary to an unknown intermittent GI bleed. The patient is status post EGD and negative Hemoccult. 2. History of hypertension. 3. History of hypothyroidism, well-controlled. 4. History of atrial fibrillation, well-controlled. 5. Right lower extremity lymphedema. HISTORY OF PRESENT ILLNESS/HOSPITAL COURSE: The patient is an 82-year-old, lady with a history of dementia, COPD, hypertension, CVA, PE and bilateral DVT who presented on 10/15/2017 from [facility] given her hemoglobin was found to be 5.2. She was referred to both Dr. 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 Cedillo. Dr. Cedillo did an EGD on October 15; however, this was found to be unremarkable. Colonoscopy was deferred at that time given her advanced age and comorbidities, along with a Hemoccult that was found to be negative. However, on subsequent anemia work-up, she was found to be severely iron deficient and I have touched base with Dr. Mayberry who was covering for Dr. Atkins at the time of discharge regarding her plan of care in regards to anticoagulation. Since the patient already has a Aash[employer] filter, we will continue to hold Xarelto given her increased risk for bleeding, given that a possible GI source that is intermittently bleeding is still a possibility, given her severe iron deficiency anemia. Hence, in the future, if her code status does not change and she presents with decreased hemoglobin, repeat colonoscopy and/or other work -up for intermittent bleeding should be considered. She was also given two units or PRBC transfusion during this hospitalization stay, along with iron dextran. I will avoid any form of oral iron for this patient given any question of bleeding might be confused with a dark stool from iron that is not necessarily melena. I would also like to hold her aspirin at this point given her severe iron deficiency anemia when she presented. I will defer with patient's facility MD at [facility] to further review the risks and benefits of further antiplatelet therapy for secondary prevention of repeat CVA. On discharge the patient was advised through her forms, given that she has dementia, that she will need to follow-up with her PCP and her facility MD within three days post DC, to hold aspirin until a discussion with family as well as patient's facility MD transpires in regards to risks and benefits of preventing another CVA versus risks of possible GI bleed given recent significant iron deficiency anemia. She is to stop her anticoagulation for previous PE given she is currently protected with a [employer] filter as well as the severe iron deficiency anemia requiring transfusions of both blood and IV iron as discussed. She can follow-up with our care connect program if there are any questions and/or concerns upon her discharge that cannot be addressed immediately by her PCP. REVIEW OF SYSTEMS: On review of systems, the patient is unable to provide a reliable 14 point review of systems given her dementia. PHYSICAL EXAMINATION: Physical examination reveals the most recent vitals of blood pressure 133/53, 63 beats per minute heart rate, 97.8 degrees Fahrenheit, 20 per minute respiratory rate. General appearance: The patient is awake, not oriented times three, not in acute distress. HEENT: Normocephalic, atraumatic. PERRLA, extraocular muscles intact. Negative for icterus. Moist oral mucosa. Negative throat erythema. Neck: Soft, supple with no cervical lymphadenopathy, no JVD. Heart: S1, S2, within normal limits. Regular rate and rhythm. No murmurs, rubs, or gallops. Chest: Clear to auscultation bilaterally. Good air entry. No wheezes, rales, or rhonchi. Abdomen: Soft, nondistended, nontender. Normoactive bowel sounds times four. Extremities: No cyanosis, clubbing, or edema. Psychiatric: Normal active psychosis, depression, suicidal or homicidal ideation. Skin: Warm to touch. DISCHARGE MEDICATIONS: 1. Albuterol Ipratropium one neb inhalation q.6 prn. 2. Amiodarone 200 mg p.o. daily. 3. Clonazepam 1 mg p.o. b.i.d. 4. Clonazepam 0.5 mg p.o. daily. 5. Synthroid 88 mcg p.o. daily. 6. Lovastatin 10 mg p.o. at bedtime. 7. Metoprolol Tartrate 25 mg p.o. b.i.d. 8. Sucralfate 1 gm p.o. b.i.d. 9. Tylenol 1,000 mg p.o. b.i.d. 10. Lidocaine patch is to continue. 11. Pantoprazole 40 mg p.o. daily. 12. Polyethylene Glycol 17 gm p.o. daily. 13. Senna Plus two tabs p.o. b.i.d. Total time spent evaluating the patient, reviewing pertinent data and appropriate documentation is greater than 30 minutes. [id number]/[facility] #: [id number] [facility]
[2017-10-17] MEDS: clonazePAM TAB(*) 0.5 MG PO SCH (12:33)
== END 2017-10-17 13:15 | DRG 812 ==
LOC: ED 00:37 → MEDTELE 03:39
PROVIDERS: ADMIT Hospitalist; ATTEND Student in an Organized Health Care Education/Training Program
PROC: 30233N1 Transfusion of Nonautologous Red Blood Cells into Peripheral Vein, Percutaneous Approach (ICD-10-PCS; principal; 2017-10-15)
PROC: 0DJ08ZZ Inspection of Upper Intestinal Tract, Via Natural or Artificial Opening Endoscopic (ICD-10-PCS; 2017-10-15)
DX: D50.0 Iron deficiency anemia secondary to blood loss (chronic) (principal); K92.2 Gastrointestinal hemorrhage, unspecified; I10 Essential (primary) hypertension; E03.9 Hypothyroidism, unspecified; I48.91 Unspecified atrial fibrillation; I89.0 Lymphedema, not elsewhere classified; F03.90 Unspecified dementia, unspecified severity, without behavioral disturbance, psychotic disturbance, mood disturbance, and anxiety; J44.9 Chronic obstructive pulmonary disease, unspecified; E78.5 Hyperlipidemia, unspecified; F41.9 Anxiety disorder, unspecified; I65.21 Occlusion and stenosis of right carotid artery; I25.10 Atherosclerotic heart disease of native coronary artery without angina pectoris; J30.2 Other seasonal allergic rhinitis; F32.9 Major depressive disorder, single episode, unspecified; Z66 Do not resuscitate; K44.9 Diaphragmatic hernia without obstruction or gangrene; Z86.73 Personal history of transient ischemic attack (TIA), and cerebral infarction without residual deficits; Z86.711 Personal history of pulmonary embolism; Z86.718 Personal history of other venous thrombosis and embolism; Z95.828 Presence of other vascular implants and grafts; Z88.5 Allergy status to narcotic agent; Z88.2 Allergy status to sulfonamides; Z90.49 Acquired absence of other specified parts of digestive tract; Z98.42 Cataract extraction status, left eye; Z98.41 Cataract extraction status, right eye; Z98.51 Tubal ligation status; Z81.8 Family history of other mental and behavioral disorders; Z87.891 Personal history of nicotine dependence
CPT/HCPCS: 36415; 74176; 80048; 80053; 82248; 82270; 82607; 82728; 82746; 83010; 83540; 83550; 83615; 83735; 83921; 84100; 84436; 84443; 85025; 85027; 85045; 85060; 85610; 85730; 86850; 86880; 86900; 86901; 86922; 87641; 99223; 99284; A9270-GY; G8978-GP-CJ; G8979-GP-CI; J1750; P9040

== ENCOUNTER 2017-12-07 03:54 | Emergency (ER) | payer MEDICAID, MEDICARE, OTHER ==
--- NOTE | 2017-12-07 05:01 | ED ---
Lower Extremity - HPI Summary HPI Summary: This is scribe Ryan Elias documenting for attending Dr. Akash Morin MD. A 82 y/o female presents to ED c/o left hip pain reaching 5/10 in severity. According to the patient, she fell and hurt her left hip. She denies any LOC or fever. As per staff, she fell off her bed at [facility]. Patient can ambulate. It was noted that the patient has some bruising/redness on the left side of the hip. Additionally, she has old bruises. - History of Current Complaint Chief Complaint: EDHipPelvisInjury Stated Complaint: HIP PAIN Time Seen by Provider: 12/07/17 03:58 Hx Obtained From: Patient Mechanism Of Injury: Fall From Height Of: Onset of Pain: Immediate Onset/Duration: Still Present Severity Initially: Moderate Severity Currently: Moderate Pain Intensity: 5 Pain Scale Used: 0-10 Numeric Timing: Constant Location: Other - Left hip Associated Signs And Symptoms: Positive: Redness, Bruising Aggravating Factor(s): Nothing Alleviating Factor(s): Nothing - Allergies/Home Medications Allergies/Adverse Reactions: Allergies Allergy/AdvReac Type Severity Reaction Status Date / Time codeine Allergy Unknown Verified 12/07/17 03:59 Reaction Details Sulfa (Sulfonamide Allergy Unknown Verified 12/07/17 03:59 Antibiotics) Reaction Details PMH/Surg Hx/FS Hx/Imm Hx Cardiovascular History: Reports: Hx Coronary Artery Disease - CHOLESTEROL CONTROL WITH MED, Hx Hypertension Denies: Hx Pacemaker/ICD Respiratory History: Reports: Hx Chronic Obstructive Pulmonary Disease (COPD), Hx Seasonal Allergies, Other Respiratory Problems/Disorders - seasonal allergies GI History: Reports: Hx Gall Bladder Disease - removed History: Denies: Hx Acute Renal Failure, Hx Benign Prostatic Hyperplasia, Hx Chronic Renal Failure, Hx Dialysis, Hx Kidney Infection, Hx Kidney Stones, Other Problems/Disorders Musculoskeletal History: Reports: Hx Tendonitis - SHOULDER Sensory History: Reports: Hx Cataracts - removed, Hx Contacts or Glasses Denies: Hx Hearing Aid Opthamlomology History: Reports: Hx Cataracts - removed, Hx Contacts or Glasses Neurological History: Reports: Hx Dementia Psychiatric History: Reports: Hx Anxiety, Hx Depression Denies: Hx Eating Disorder, Hx Panic Disorder, Hx Schizophrenia, Hx of Violent Episodes Against Others, Hx Substance Abuse - Cancer History Hx Chemotherapy: No Hx Radiation Therapy: No - Surgical History Surgery Procedure, Year, and Place: 1963 AND 1964 C SECTION, [facility]. 2008 BOWEL RESECTION, [facility]. 2012 LAPAROSCOPIC CHOLECYSTECTOMY, [facility]. diverticulitis. tubal ligation. JAN 2017 VENA CAVA FILTER. hysterectomy. catarct Hx Anesthesia Reactions: No - Immunization History Date of Tetanus Vaccine: unk Date of Influenza Vaccine: unk Infectious Disease History: Unable to Obtain/Confirm Infectious Disease History: Reports: Hx Shingles Denies: Hx Clostridium Difficile, Hx Hepatitis, Hx Human Immunodeficiency Virus (HIV), Hx of Known/Suspected MRSA, Hx Tuberculosis, Hx Known/Suspected VRE , Hx Known/Suspected VRSA, History Other Infectious Disease, Traveled Outside the [place] in Last 30 Days - Family History Known Family History: Positive: Other - Anxiety disorder - sister - Social History Alcohol Use: None Hx Substance Use: No Substance Use Type: Reports: None Substance Use Comment - Amount & Last Used: klonopin for anxiety Hx Tobacco Use: Yes Smoking Status (MU): Former Smoker Amount Used/How Often: 1 PPD Review of Systems Negative: Fever Positive: Other - POSITIVE: Left hip pain Neurological: Other - NEGATIVE: LOC All Other Systems Reviewed And Are Negative: Yes Physical Exam - Summary Physical Exam Summary: VITAL SIGNS: Reviewed. GENERAL: Patient is a well-developed and nourished female who is lying comfortable in the stretcher. Patient is not in any acute respiratory distress. HEAD AND FACE: No signs of trauma. No ecchymosis, hematomas or skull depressions. No sinus tenderness. EYES: PERRLA, EOMI x 2, No injected conjunctiva, no nystagmus. EARS: Hearing grossly intact. Ear canals and tympanic membranes are within normal limits. MOUTH: Oropharynx within normal limits. NECK: Supple, trachea is midline, no adenopathy, no JVD, no carotid bruit, no c- spine tenderness, neck with full ROM. CHEST: Symmetric, no tenderness at palpation LUNGS: Clear to auscultation bilaterally. No wheezing or crackles. CVS: Regular rate and rhythm, S1 and S2 present, no murmurs or gallops appreciated. ABDOMEN: Soft, non-tender. No signs of distention. No rebound no guarding, and no masses palpated. Bowel sounds are normal. EXTREMITIES: FROM in all major joints, no edema, no cyanosis or clubbing. NEURO: Alert and oriented x 3. No acute neurological deficits. Speech is normal and follows commands. SKIN: Dry and warm. Ecchymosis of left hip. Triage Information Reviewed: Yes Vital Signs On Initial Exam: Initial Vitals Temp Pulse Resp BP Pulse Ox 98.3 F 65 16 125/64 97 12/07/17 03:57 12/07/17 03:57 12/07/17 03:57 12/07/17 03:57 12/07/17 03:57 Vital Signs Reviewed: Yes Diagnostics - Vital Signs Vital Signs Temp Pulse Resp BP Pulse Ox 12/07/17 04:22 61 98 12/07/17 04:21 62 132/58 97 12/07/17 03:57 98.3 F 65 16 125/64 97 - Laboratory Lab Statement: Any lab studies that have been ordered have been reviewed, and results considered in the medical decision making process. - Radiology HIP/PELVIS XR Radiology Interpretation Completed By: ED Physician - No acute fracture. Lower Extremity Course/Dx - Course Course Of Treatment: A 82 y/o female presents to ED c/o left hip pain reaching 5 /10 in severity. According to the patient, she fell and hurt her left hip. She denies any LOC or fever. A Hip/Pelvis XR revealed no acute fracture. In the ED course, the patient recieved no medications. Pt will be discharged with a diagnosis of left-hip pain. Pt is to follow up with PCP in 1-2 days. Pt is agreeable with this plan. - Diagnoses Provider Diagnoses: Left hip pain Discharge - Sign-Out/Discharge Documenting (check all that apply): Patient Departure - DISCHARGE - Discharge Plan Condition: Stable Disposition: HOME Patient Education Materials: Hip Pain (ED) Referrals: Augustine Box MD [Primary Care Provider] - 2 Days Additional Instructions: RETURN TO ED FOR ANY NEW OR WORSENING SYMPTOMS.
[2017-12-07 05:57] VITALS: BP 118/59
--- NOTE | 2017-12-07 10:21 | RAD ---
Indication: Fall with injury to the LEFT hip. Hip pain. Comparison: October 15, 2017 CT. Technique: AP pelvis and AP and crosstable lateral views LEFT hip. Report: The LEFT hip is normally located. No cortical disruption or suspicious trabecular irregularity of the LEFT proximal femur to indicate femoral neck fracture. New wafer-shaped bone fragment medial to the lesser trochanter compared with the recent CT is suspicious for an avulsion fracture at the iliopsoas tendon insertion. Negative for pelvic fracture or joint diastases. Vascular calcifications. Soft tissue swelling noted superficial to the RIGHT greater trochanter. IMPRESSION: #. No evidence for typical LEFT femoral neck fracture. #. New wafer-shaped bone fragment medial to the lesser trochanter compared with the recent CT is suspicious for an avulsion fracture at the iliopsoas tendon insertion. #. Results discussed with charge nurse Tesfaye in the ED 12/07/2017 10:20 AM EDT R2
--- NOTE | 2017-12-12 12:18 | PN ---
Progress Note - Progress Note Date of Service: 12/07/17 Note: Pt. seen in the ER 12/07 for hip pain after a fall. Hip xr was read as negative by ER physician and pt. was dc back to [facility]. Final xray read per radiology that was received on 12/12/17: 1. No evidence for typical L femoral neck fx 2. New wafer-shaped bone fragment medial to the lesser trochanter compared with the recent CT is suspicious for an avulsion fx at the iliopsoas tendon insertion. I called and spoke with pt.'s nurse, Quinten, ([phone]) at [facility] and she states that pt. has no hip pain and has been walking normally. Xray report faxed over. They will f.u as needed.
== END 2017-12-07 05:56 | disposition home or self-care (01) ==
LOC: ED 03:54
DX: M25.552 Pain in left hip (principal); W06.XXXA Fall from bed, initial encounter; Y92.9 Unspecified place or not applicable; E78.70 Disorder of bile acid and cholesterol metabolism, unspecified; Z79.899 Other long term (current) drug therapy; Z87.891 Personal history of nicotine dependence; Z88.5 Allergy status to narcotic agent; Z88.2 Allergy status to sulfonamides
CPT/HCPCS: 99283